=== PATIENT | female | born 1980 | race Caucasian/White ===

== ENCOUNTER 2017-08-14 11:35 | Emergency (ER) | payer SELFPAY ==
[2017-08-14 12:55] LABS: Urine Bacteria 20-50 /HPF (<20); Urine Culture Reflex Order NOT NEEDED
[2017-08-14 12:56] LABS: Urine Blood TRACE (NEG); Urine Glucose TRACE (NEG); Urine Protein TRACE (NEG); Urine Specific Gravity 1.015 (1.005-1.030); Urine pH 6.5 (5.0-7.0)
[2017-08-14] MEDS ORDERED: CEFTRIAXONE 1000 MG/VIAL ONE (13:00)
[2017-08-14] MEDS ORDERED: PHENAZOPYRIDINE 100MG TAB PO ONE (13:00)
[2017-08-14] MEDS ORDERED: LIDOCAINE 1% MPF 2 ML AMPULE ONE (13:00)
--- NOTE | 2017-08-14 13:01 | ER ---
Nurse's Notes [facility] Name: Radha Alvarado Age: 37 yrs Sex: Female : 1980 Arrival Date: 08/14/2017 Time: 11:37 Bed 10 Private MD: None, None Diagnosis: Urinary tract infection, site not specified Presentation: 08/14 11:46 Presenting complaint: Patient states: burning with urination x 3 days ago. Transition aa5 of care: patient was not received from another setting of care. Onset of symptoms was August 2017. Risk Assessment: Do you want to hurt yourself or someone else? Patient reports no desire to harm self or others. Initial Sepsis Screen: Does the patient meet any 2 criteria? No. Patient's initial sepsis screen is negative. Does the patient have a suspected source of infection? No. Patient's initial sepsis screen is negative. Care prior to arrival: None. 11:46 Method Of Arrival: Ambulatory aa5 11:46 Acuity: TITUS 4 aa5 Triage Assessment: 13:15 General: Appears in no apparent distress. iw 13:15 General: Behavior is calm, cooperative. 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 - Social history:: Smoking status: Patient/guardian denies using tobacco. - Ebola Screening: : No symptoms or risks identified at this time. Screenin:46 Abuse screen: Denies threats or abuse. Nutritional screening: No deficits noted. aa5 Tuberculosis screening: No symptoms or risk factors identified. Fall Risk None identified. Assessment: 11:46 General: Appears comfortable, Behavior is calm, cooperative. Pain: Denies pain. Neuro: aa5 Level of Consciousness is awake, alert, obeys commands, Oriented to person, place, time, situation. Cardiovascular: No deficits noted. Respiratory: Airway is patent Respiratory effort is even, unlabored, Respiratory pattern is regular, symmetrical. GI: No signs and/or symptoms were reported involving the gastrointestinal system. : Reports burning with urination, pain in suprapubic area with urination. EENT: No signs and/or symptoms were reported regarding the EENT system. Derm: Skin is pink, warm \T\ dry. Musculoskeletal: Range of motion: intact in all extremities. 13:18 Reassessment: Patient is alert, oriented x 3, equal unlabored respirations, skin aa5 warm/dry/pink. Vital Signs: 11:47 BP 97 / 65; Pulse 80; Resp 16 S; Temp 98.3(TE); Pulse Ox 97% on R/A; Weight 63.5 kg aa5 (R); Height 5 ft. 2 in. (157.48 cm) (R); Pain 0/10; 11:47 Body Mass Index 25.61 (63.50 kg, 157.48 cm) aa5 ED Course: 11:37 Patient arrived in ED. mr 11:37 None, None is Private Physician. mr 11:46 Triage completed. aa5 11:47 Arm band placed on. aa5 11:47 Patient has correct armband on for positive identification. aa5 11:55 Urine collected: clean catch specimen, clear, Urine micro and urine culture sent to lab.aa5 12:51 [facility]C [facility]. snw 12:51 Brian Alfonso MD is Attending Physician. snw 13:05 Shilpa Perla, AICHA is Primary Nurse. aa5 13:15 No provider procedures requiring assistance completed. Patient did not have IV access aa5 during this emergency room visit. 13:18 Primary Nurse role handed off by Shilpa Perla RN iw 13:18 Marily Colon RN is Primary Nurse. iw Administered Medications: 13:05 Drug: Rocephin (cefTRIAXone) 1 grams Route: IM; Site: right gluteus; aa5 13:18 Follow up: Response: No adverse reaction aa5 13:05 Drug: Pyridium 200 mg Route: PO; aa5 13:18 Follow up: Response: No adverse reaction aa5 13:07 Drug: [place] 5 mg-325 mg 1 tabs Route: PO; aa5 13:18 Follow up: Response: No adverse reaction aa5 Outcome: 13:00 Discharge ordered by . snw 13:18 Patient left the ED. iw 13:18 Discharged to home ambulatory, with family. aa5 13:18 Condition: stable 13:18 Discharge instructions given to patient, Instructed on discharge instructions, follow up and referral plans. medication usage, Demonstrated understanding of instructions, follow-up care, medications, Prescriptions given X 2. Addendum: 08/17/2017 09:22 Addendum: Culture Results: Positive urine culture. No further action required. Bacteria s s sensitive to prescribed antibiotic. Signatures: Asia White, MEAT PACKAGER-C MEAT PACKAGER-Csnw Fang Young mr Marily Colon RN RN iw Shilpa Perla RN RN aa5 Shira Napoles RN RN ss
--- NOTE | 2017-08-14 13:01 | EDPHYS ---
Physician Documentation [facility] Name: Radha Alvarado Age: 37 yrs Sex: Female : 1980 Arrival Date: 08/14/2017 Time: 11:37 Bed 10 Private MD: None, None ED Physician Brian Alfonso HPI: 08/14 13:09 This 37 yrs old Female presents to ER via Ambulatory with complaints of snw Urinary Problem. 13:09 The patient presents with urinary symptoms, dysuria, frequency, hematuria, urgency. snw Onset: The symptoms/episode began/occurred suddenly, 4 day(s) ago, and became worse and became persistent. Associated signs and symptoms: Pertinent positives: cramping, dysuria, hematuria, nausea. Severity of symptoms: At their worst the symptoms were moderate, severe, in the emergency department the symptoms are unchanged. The patient has experienced a previous episode. The patient has not recently seen a physician, called but was unable to secure a timely appointment for an office visit. 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 - Social history:: Smoking status: Patient/guardian denies using tobacco. - Ebola Screening: : No symptoms or risks identified at this time. ROS: 13:07 Constitutional: Negative for fever, chills, and weight loss, Eyes: Negative for injury, snw pain, redness, and discharge, ENT: Negative for injury, pain, and discharge, Neck: Negative for injury, pain, and swelling, Cardiovascular: Negative for chest pain, palpitations, and edema, Respiratory: Negative for shortness of breath, cough, wheezing, and pleuritic chest pain, Abdomen/GI: Negative for abdominal pain, nausea, vomiting, diarrhea, and constipation, Back: Negative for injury and pain, MS/Extremity: Negative for injury and deformity, Skin: Negative for injury, rash, and discoloration, Neuro: Negative for headache, weakness, numbness, tingling, and seizure. 13:07 : Positive for urinary symptoms, burning with urination. Exam: 13:07 Constitutional: This is a well developed, well nourished patient who is awake, alert, snw and in no acute distress. Head/Face: Normocephalic, atraumatic. Eyes: Pupils equal round and reactive to light, extra-ocular motions intact. Lids and lashes normal. Conjunctiva and sclera are non-icteric and not injected. Cornea within normal limits. Periorbital areas with no swelling, redness, or edema. ENT: Nares patent. No nasal discharge, no septal abnormalities noted. Tympanic membranes are normal and external auditory canals are clear. Oropharynx with no redness, swelling, or masses, exudates, or evidence of obstruction, uvula midline. Mucous membranes moist. Neck: Trachea midline, no thyromegaly or masses palpated, and no cervical lymphadenopathy. Supple, full range of motion without nuchal rigidity, or vertebral point tenderness. No Meningismus. Chest/axilla: Normal chest wall appearance and motion. Nontender with no deformity. No lesions are appreciated. Cardiovascular: Regular rate and rhythm with a normal S1 and S2. No gallops, murmurs, or rubs. Normal PMI, no JVD. No pulse deficits. Respiratory: Lungs have equal breath sounds bilaterally, clear to auscultation and percussion. No rales, rhonchi or wheezes noted. No increased work of breathing, no retractions or nasal flaring. Abdomen/GI: Soft, non-tender, with normal bowel sounds. No distension or tympany. No guarding or rebound. No evidence of tenderness throughout. restless and uncomfortable Back: No spinal tenderness. No costovertebral tenderness. Full range of motion. Skin: Warm, dry with normal turgor. Normal color with no rashes, no lesions, and no evidence of cellulitis. MS/ Extremity: Pulses equal, no cyanosis. Neurovascular intact. Full, normal range of motion. Neuro: Awake and alert, GCS 15, oriented to person, place, time, and situation. Cranial nerves II-XII grossly intact. Motor strength 5/5 in all extremities. Sensory grossly intact. Cerebellar exam normal. Normal gait. Psych: Awake, alert, with orientation to person, place and time. Behavior, mood, and affect are within normal limits. Vital Signs: 11:47 BP 97 / 65; Pulse 80; Resp 16 S; Temp 98.3(TE); Pulse Ox 97% on R/A; Weight 63.5 kg aa5 (R); Height 5 ft. 2 in. (157.48 cm) (R); Pain 0/10; 11:47 Body Mass Index 25.61 (63.50 kg, 157.48 cm) aa5 MDM: 12:53 Patient medically screened. snw 13:08 Data reviewed: vital signs, nurses notes. Data interpreted: Pulse oximetry: on room air snw is 97 %. Interpretation: normal. Counseling: I had a detailed discussion with the patient and/or guardian regarding: the historical points, exam findings, and any diagnostic results supporting the discharge/admit diagnosis, lab results, the need for outpatient follow up, to return to the emergency department if symptoms worsen or persist or if there are any questions or concerns that arise at home. Special discussion: Based on the history and exam findings, there is no indication for further emergent testing or inpatient evaluation. I discussed with the patient/guardian the need to see the primary care provider for further evaluation of the symptoms. 08/14 11:41 Order name: Urine Culture snw 08/14 11:41 Order name: Urine Microscopic Only; Complete Time: 12:57 snw 08/14 12:47 Order name: Urine Dipstick--Ancillary (enter results); Complete Time: 12:57 bd 08/14 12:47 Order name: Urine --Ancillary (enter results); Complete Time: 12:57 bd 08/14 11:41 Order name: Urine Test (obtain specimen); Complete Time: 12:00 snw 08/14 11:41 Order name: Urine Dipstick-Ancillary (obtain specimen); Complete Time: 12:00 snw Administered Medications: 13:05 Drug: Rocephin (cefTRIAXone) 1 grams Route: IM; Site: right gluteus; aa5 13:18 Follow up: Response: No adverse reaction aa5 13:05 Drug: Pyridium 200 mg Route: PO; aa5 13:18 Follow up: Response: No adverse reaction aa5 13:07 Drug: [place] 5 mg-325 mg 1 tabs Route: PO; aa5 13:18 Follow up: Response: No adverse reaction aa5 Disposition: 15:14 Co-signature as Attending Physician, Brian Alfonso MD I agree with the assessment and ha plan of care. Disposition: 08/14/17 13:00 Discharged to Home. Impression: Urinary tract infection, site not specified. - Condition is Stable. - Discharge Instructions: Urinary Tract Infection, Rehydration, Adult. - Prescriptions for Diclofenac Sodium 75 mg Oral Tablet Sustained Release - take 1 tablet by ORAL route 2 times per day; 30 tablet. cefpodoxime 200 mg Oral Tablet - take 1 tablet by ORAL route every 12 hours with food; 20 tablet. - Work release form, Medication Reconciliation Form, Thank You Letter, Antibiotic Education, Prescription Opioid Use form. - Follow up: Private Physician; When: 2 - 3 days; Reason: Recheck today's complaints, Continuance of care, Re-evaluation by your physician. Follow up: Emergency Department; When: As needed; Reason: Worsening of condition. Signatures: Dispatcher [employer] EDMD Brian Alfonso MD MD cha Therrien, Shelly, CANCER REGISTRAR-C CANCER REGISTRAR-Csnw Marily Colon RN RN Shilpa Perla RN RN aa5 Corrections: (The following items were deleted from the chart) 13:18 13:00 08/14/2017 13:00 Discharged to Home. Impression: Urinary tract infection, site iw not specified. Condition is Stable. Forms are Medication Reconciliation Form, Thank You Letter, Antibiotic Education, Prescription Opioid Use. Follow up: Private Physician; When: 2 - 3 days; Reason: Recheck today's complaints, Continuance of care, Re-evaluation by your physician. Follow up: Emergency Department; When: As needed; Reason: Worsening of condition. snw
[2017-08-14] MEDS ORDERED: HYDROCODONE/APAP 5/325 MG TAB ONE (13:08)
== END 2017-08-14 13:18 | disposition home or self-care (01) ==
LOC: ER 11:35
DX: N39.0 Urinary tract infection, site not specified (principal); F41.9 Anxiety disorder, unspecified; Z88.2 Allergy status to sulfonamides
CPT/HCPCS: 81003; 81015; 81025; 87077; 87086; 87088; 87186; 96372; 99283; J2001

== ENCOUNTER 2018-04-15 21:56 | Emergency (ER) | payer SELFPAY ==
--- NOTE | 2018-04-15 23:47 | ER ---
Nurse's Notes [facility] Name: Radha Alvarado Age: 37 yrs Sex: Female : 1980 Arrival Date: 04/15/2018 Time: 21:57 Bed 10 Private MD: Diagnosis: Dermatitis, unspecified Presentation: 04/15 22:11 Presenting complaint: Patient states: rash to bilateral hand, arms, legs and feet X1 ak1 week. pt stated she has had this prior with increased stress. pt seen by Dr. Ward and taking Doxycycline. pt last rash "episode" she was seen by [facility]. Transition of care: patient was not received from another setting of care. Onset of symptoms is unknown. Risk Assessment: Do you want to hurt yourself or someone else? Patient reports no desire to harm self or others. Initial Sepsis Screen: Does the patient meet any 2 criteria? No. Patient's initial sepsis screen is negative. Does the patient have a suspected source of infection? No. Patient's initial sepsis screen is negative. Care prior to arrival: None. 22:11 Method Of Arrival: Ambulatory ak1 22:11 Acuity: TITUS 5 ak1 Triage Assessment: 22:14 General: Appears in no apparent distress. 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 - Social history:: Smoking status: Patient/guardian denies using tobacco, Patient/guardian denies using alcohol. - Ebola Screening: : No symptoms or risks identified at this time. Screenin:36 Abuse screen: Denies threats or abuse. Nutritional screening: No deficits noted. bb Tuberculosis screening: No symptoms or risk factors identified. Fall Risk None identified. Assessment: 23:36 General: Appears in no apparent distress. slender, Behavior is calm, cooperative. Pain: bb Complains of pain in rash. Neuro: Level of Consciousness is awake, alert, obeys commands, Oriented to person, place, time, situation. Cardiovascular: No deficits noted. Respiratory: Respiratory effort is even, unlabored, Respiratory pattern is regular. GI: No signs and/or symptoms were reported involving the gastrointestinal system. Derm: Rash noted that is on face, hands, arms and legs. Musculoskeletal: Circulation, motion, and sensation intact. 04/16 00:16 Reassessment: Patient and/or family updated on plan of care and expected duration. Pain ea level reassessed. Patient is alert, oriented x 3, equal unlabored respirations, skin warm/dry/pink. Attempted to give pt discharge instructions. 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 Pt demanding labs and to speak to physician. Provider and charge nurse notified. Provider at bedside speaking to patient. 00:40 Reassessment: Patient and/or family updated on plan of care and expected duration. Pain ea level reassessed. Patient is alert, oriented x 3, equal unlabored respirations, skin warm/dry/pink. Discharge instructions given to patient, verbalized the understanding of instruction. Pt refused to sign discharge instructions. Vital Signs: 04/15 22:14 BP 121 / 81; Pulse 75; Resp 16; Temp 98.1; Pulse Ox 100% on R/A; Weight 56.25 kg (R); ak1 Height 5 ft. 2 in. (157.48 cm) (R); Pain 10/10; 23:53 BP 134 / 90; Pulse 71; Resp 18 S; Temp 98.2(O); Pulse Ox 99% on R/A; bb 22:14 Body Mass Index 22.68 (56.25 kg, 157.48 cm) ak1 ED Course: 21:57 Patient arrived in ED. am2 22:12 Triage completed. ak1 22:14 Arm band placed on Patient placed in waiting room, Patient notified of wait time. ak1 23:12 Jayy Peter MD is Attending Physician. gs 23:36 Kayla Johnson RN is Primary Nurse. bb 23:36 Patient has correct armband on for positive identification. Call light in reach. bb 23:37 No provider procedures requiring assistance completed. Patient did not have IV access bb during this emergency room visit. 23:46 Lee Bryan MD is Referral Physician. gs Administered Medications: No medications were administered Outcome: 23:46 Discharge ordered by . lauren 04/16 00:40 Discharged to home ambulatory. ea Condition: improved Discharge instructions given to patient, Instructed on discharge instructions, follow up and referral plans. medication usage, Demonstrated understanding of instructions, follow-up care, medications, Prescriptions given X 2. 00:47 Patient left the ED. ea Signatures: Kayla Johnson RN Vicki Murrell RN RN ak1 Moreno, Amanda am2 Antunez, Elena, RN RN ea Starr, Gregory, MD MD gs
--- NOTE | 2018-04-15 23:47 | EDPHYS ---
Physician Documentation [facility] Name: Radha Alvarado Age: 37 yrs Sex: Female : 1980 Arrival Date: 04/15/2018 Time: 21:57 Bed 10 Private MD: ED Physician Jayy Peter HPI: 04/15 23:43 This 37 yrs old Female presents to ER via Ambulatory with complaints of Skin gs Rash Face/Hands/Feet. 23:43 The rash can be described as flat, scabs. Onset: The symptoms/episode began/occurred 1 gs year(s) ago, and became persistent. Associated signs and symptoms: Pertinent positives: itching, Pertinent negatives: fever. Severity of symptoms: At their worst the symptoms were moderate in the emergency department the symptoms are unchanged. Treatment given at home: Benadryl. The patient has experienced similar episodes in the past, chronically. 04/16 00:31 The patient has been recently seen by a physician: the patient's primary care provider, gs with similar presenting complaints, was given a prescription for antibiotics. 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 - Social history:: Smoking status: Patient/guardian denies using tobacco, Patient/guardian denies using alcohol. - Ebola Screening: : No symptoms or risks identified at this time. ROS: 23:43 All other systems are negative. gs Exam: 23:43 Head/Face: Normocephalic, atraumatic. Eyes: Pupils equal round and reactive to light, gs extra-ocular motions intact. Lids and lashes normal. Conjunctiva and sclera are non-icteric and not injected. Cornea within normal limits. Periorbital areas with no swelling, redness, or edema. ENT: Nares patent. No nasal discharge, no septal abnormalities noted. Tympanic membranes are normal and external auditory canals are clear. Oropharynx with no redness, swelling, or masses, exudates, or evidence of obstruction, uvula midline. Mucous membranes moist. Neck: Trachea midline, no thyromegaly or masses palpated, and no cervical lymphadenopathy. Supple, full range of motion without nuchal rigidity, or vertebral point tenderness. No Meningismus. Chest/axilla: Normal chest wall appearance and motion. Nontender with no deformity. No lesions are appreciated. Cardiovascular: Regular rate and rhythm with a normal S1 and S2. No gallops, murmurs, or rubs. Normal PMI, no JVD. No pulse deficits. Respiratory: Lungs have equal breath sounds bilaterally, clear to auscultation and percussion. No rales, rhonchi or wheezes noted. No increased work of breathing, no retractions or nasal flaring. Back: No spinal tenderness. No costovertebral tenderness. Full range of motion. MS/ Extremity: Pulses equal, no cyanosis. Neurovascular intact. Full, normal range of motion. Neuro: Awake and alert, GCS 15, oriented to person, place, time, and situation. Cranial nerves II-XII grossly intact. Motor strength 5/5 in all extremities. Sensory grossly intact. Cerebellar exam normal. Normal gait. 23:43 Constitutional: The patient appears alert, awake, uncomfortable. 23:43 Skin: rash can be described as excoriated, macular, scabs on face hands and legs. Vital Signs: 22:14 BP 121 / 81; Pulse 75; Resp 16; Temp 98.1; Pulse Ox 100% on R/A; Weight 56.25 kg (R); ak1 Height 5 ft. 2 in. (157.48 cm) (R); Pain 10/10; 23:53 BP 134 / 90; Pulse 71; Resp 18 S; Temp 98.2(O); Pulse Ox 99% on R/A; bb 22:14 Body Mass Index 22.68 (56.25 kg, 157.48 cm) ak1 MDM: 23:43 Patient medically screened. gs 23:43 Data reviewed: vital signs, nurses notes. gs Administered Medications: No medications were administered Disposition: 04/15/18 23:46 Discharged to Home. Impression: Dermatitis, unspecified. - Condition is Stable. - Discharge Instructions: Rash. - Prescriptions for Vistaril 25 mg Oral capsule - take 1 capsule by ORAL route 4 times per day As needed; 30 capsule. benzoyl peroxide 10 % Topical cleanser - wash 1 application by TOPICAL route 2 times per day; 1 bottle. - Work release form, Medication Reconciliation Form, Thank You Letter, Antibiotic Education, Prescription Opioid Use form. - Follow up: Lee Bryan MD; When: 2 - 3 days; Reason: Re-evaluation by your physician. Signatures: Vicki Macario RN RN ak1 Idalia Holland RN RN ea Starr, Gregory, MD MD Corrections: (The following items were deleted from the chart) 04/16 00:47 04/15 23:46 04/15/2018 23:46 Discharged to Home. Impression: Dermatitis, unspecified. ea Condition is Stable. Forms are Medication Reconciliation Form, Thank You Letter, Antibiotic Education, Prescription Opioid Use. Follow up: Lee Bryan; When: 2 - 3 days; Reason: Re-evaluation by your physician. gs
== END 2018-04-16 00:47 | disposition home or self-care (01) ==
LOC: ER 21:56
DX: L30.9 Dermatitis, unspecified (principal); F41.9 Anxiety disorder, unspecified; F32.9 Major depressive disorder, single episode, unspecified; Z79.899 Other long term (current) drug therapy
CPT/HCPCS: 99282

== ENCOUNTER 2018-06-18 09:11 | Emergency (ER) | payer SELFPAY ==
[2018-06-18 10:08] LABS: Urine Blood 1+ (NEG); Urine Glucose NEGATIVE (NEG); Urine Protein NEGATIVE (NEG); Urine Specific Gravity >1.030 (1.005-1.030); Urine pH 5.5 (5.0-7.0)
[2018-06-18 10:17] LABS: Urine Bacteria >50 /HPF (<20); Urine RBC <5 /HPF (NONE SEEN)
[2018-06-18 10:18] LABS: Urine Culture Reflex Order REFLEXED
[2018-06-18] MEDS ORDERED: LIDOCAINE 1% MPF 2 ML AMPULE ONE (10:31)
[2018-06-18] MEDS ORDERED: AZITHROMYCIN 250 MG TAB ONE (10:31)
[2018-06-18] MEDS ORDERED: CEFTRIAXONE 250 MG/VIAL ONE (10:31)
--- NOTE | 2018-06-18 10:44 | EDPHYS ---
Physician Documentation [facility] Name: Radha Alvarado Age: 37 yrs Sex: Female : 1980 Arrival Date: 06/18/2018 Time: 09:13 Bed 17 Private MD: Cristobal Ward T ED Physician Corby Real HPI: 06/18 10:18 This 37 yrs old Female presents to ER via Ambulatory with complaints of jr8 Vaginal pain . 10:18 The patient presents with lesion on vagina. Onset: The symptoms/episode began/occurred jr8 gradually, 3 day(s) ago. Modifying factors: The symptoms are alleviated by nothing, the symptoms are aggravated by movement. Associated signs and symptoms: The patient has no apparent associated signs or symptoms. Severity of symptoms: At their worst the symptoms were mild, in the emergency department the symptoms are unchanged. The patient has not experienced similar symptoms in the past. The patient has not recently seen a physician. Patient stated that she has been on doxycycline for rash. Stated that she started to have burning near vaginal opening. Noticed small painful lesion to left labial area . 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 - Social history:: Smoking status: Patient/guardian denies using tobacco, Patient/guardian denies using alcohol. - Ebola Screening: : Patient negative for fever greater than or equal to 101.5 degrees Fahrenheit, and additional compatible Ebola Virus Disease symptoms Patient denies exposure to infectious person Patient denies travel to an Ebola-affected area in the 21 days before illness onset. ROS: 10:18 Eyes: Negative for injury, pain, redness, and discharge, ENT: Negative for injury, jr8 pain, and discharge, Neck: Negative for injury, pain, and swelling, Cardiovascular: Negative for chest pain, palpitations, and edema, Respiratory: Negative for shortness of breath, cough, wheezing, and pleuritic chest pain, Abdomen/GI: Negative for abdominal pain, nausea, vomiting, diarrhea, and constipation, Back: Negative for injury and pain, MS/Extremity: Negative for injury and deformity, Skin: Negative for injury, rash, and discoloration, Neuro: Negative for headache, weakness, numbness, tingling, and seizure. 10:18 : Positive for vaginal lesion. Exam: 10:18 Eyes: Pupils equal round and reactive to light, extra-ocular motions intact. Lids and jr8 lashes normal. Conjunctiva and sclera are non-icteric and not injected. Cornea within normal limits. Periorbital areas with no swelling, redness, or edema. ENT: Nares patent. No nasal discharge, no septal abnormalities noted. Tympanic membranes are normal and external auditory canals are clear. Oropharynx with no redness, swelling, or masses, exudates, or evidence of obstruction, uvula midline. Mucous membranes moist. Neck: Trachea midline, no thyromegaly or masses palpated, and no cervical lymphadenopathy. Supple, full range of motion without nuchal rigidity, or vertebral point tenderness. No Meningismus. Cardiovascular: Regular rate and rhythm with a normal S1 and S2. No gallops, murmurs, or rubs. Normal PMI, no JVD. No pulse deficits. Respiratory: Lungs have equal breath sounds bilaterally, clear to auscultation and percussion. No rales, rhonchi or wheezes noted. No increased work of breathing, no retractions or nasal flaring. Abdomen/GI: Soft, non-tender, with normal bowel sounds. No distension or tympany. No guarding or rebound. No evidence of tenderness throughout. Back: No spinal tenderness. No costovertebral tenderness. Full range of motion. MS/ Extremity: Pulses equal, no cyanosis. Neurovascular intact. Full, normal range of motion. Neuro: Awake and alert, GCS 15, oriented to person, place, time, and situation. Cranial nerves II-XII grossly intact. Motor strength 5/5 in all extremities. Sensory grossly intact. Cerebellar exam normal. Normal gait. 10:18 Skin: Patient has scabbed wounds to face, arms, legs, pubic region consistent with staph. 10:40 : Pelvic Exam: External exam: reveals ulcerations on external genitalia, 1.5 cm jr8 ulceration noted to inner left labial region that is painful to touch . Vital Signs: 09:25 BP 127 / 77; Pulse 64; Resp 18; Temp 97.8(O); Pulse Ox 100% on R/A; Weight 61.69 kg; hj Height 5 ft. 2 in. (157.48 cm); 11:12 BP 125 / 75; Pulse 65; Resp 18; Pulse Ox 100% on R/A; hj 09:25 Body Mass Index 24.87 (61.69 kg, 157.48 cm) hj MDM: 09:37 Patient medically screened. jr8 10:40 Data reviewed: vital signs, nurses notes, lab test result(s). Data interpreted: Pulse jr8 oximetry: on room air is 100 %. Interpretation: normal. Counseling: I had a detailed discussion with the patient and/or guardian regarding: the historical points, exam findings, and any diagnostic results supporting the discharge/admit diagnosis, lab results, the need for outpatient follow up, a family practitioner, an OB/Gyne specialist, to return to the emergency department if symptoms worsen or persist or if there are any questions or concerns that arise at home. ED course: Patient counseled on possible diagnosis of Chancroid vs. HSV infection. Treated prophylactically for Chancroid and sent labs off for HSV. Will treat staph with bactroban . 06/18 09:38 Order name: Urine Microscopic Only; Complete Time: 10:44 jr8 06/18 09:46 Order name: Urine Dipstick--Ancillary (enter results); Complete Time: 10:11 bd 06/18 09:46 Order name: Urine --Ancillary (enter results); Complete Time: 10:11 bd 06/18 10:19 Order name: Urine Culture EDNE 06/18 09:38 Order name: Urine Test (obtain specimen); Complete Time: 09:39 jr8 06/18 09:38 Order name: Urine Dipstick-Ancillary (obtain specimen); Complete Time: 09:39 jr8 Administered Medications: 10:32 Drug: AZITHromycin 1 grams Route: PO; hj 10:48 Follow up: Response: No adverse reaction hj 10:32 Drug: Rocephin (cefTRIAXone) 250 mg Route: IM; Site: right gluteus; hj 10:48 Follow up: Response: No adverse reaction hj Disposition: 06/19 07:05 Co-signature as Attending Physician, Corby Real MD. rn Disposition: 06/18/18 10:43 Discharged to Home. Impression: Vaginal Lesion , Rash and other nonspecific skin eruption, Urinary tract infection, site not specified. - Condition is Stable. - Discharge Instructions: Rash. - Prescriptions for Bactroban 2 % Topical Ointment - Apply to affected area 1 application by TOPICAL route every 12 hours; 30 gram. Cipro 500 mg Oral Tablet - take 1 tablet by ORAL route every 12 hours for 3 days; 6 tablet. - Medication Reconciliation Form, Thank You Letter, Antibiotic Education, Prescription Opioid Use, Work release form form. - Follow up: Private Physician; When: 2 - 3 days; Reason: Recheck today's complaints, Continuance of care, Re-evaluation by your physician. - Problem is new. - Symptoms have improved. Signatures: Dispatcher [employer] EDCorby Peng MD MD rn Felipe Alejo PA PA jr8 Kain Christy RN RN hj Corrections: (The following items were deleted from the chart) 06/18 10:44 10:43 06/18/2018 10:43 Discharged to Home. Impression: Vaginal Lesion ; Rash and other jr8 nonspecific skin eruption. Condition is Stable. Forms are Medication Reconciliation Form, Thank You Letter, Antibiotic Education, Prescription Opioid Use. Follow up: Private Physician; When: 2 - 3 days; Reason: Recheck today's complaints, Continuance of care, Re-evaluation by your physician. Problem is new. Symptoms have improved. jr8 11:12 10:44 06/18/2018 10:43 Discharged to Home. Impression: Vaginal Lesion ; Rash and other hj nonspecific skin eruption; Urinary tract infection, site not specified. Condition is Stable. Discharge Instructions: Genital Herpes, Rash. Prescriptions for Bactroban 2 % Topical Ointment - Apply to affected area 1 application by TOPICAL route every 12 hours; 30 gram. and Forms are Medication Reconciliation Form, Thank You Letter, Antibiotic Education, Prescription Opioid Use. Follow up: Private Physician; When: 2 - 3 days; Reason: Recheck today's complaints, Continuance of care, Re-evaluation by your physician. Problem is new. Symptoms have improved. jr8
--- NOTE | 2018-06-18 10:44 | ER ---
Nurse's Notes [facility] Name: Radha Alvarado Age: 37 yrs Sex: Female : 1980 Arrival Date: 06/18/2018 Time: 09:13 Bed 17 Private MD: Cristobal Ward T Diagnosis: Vaginal Lesion ;Rash and other nonspecific skin eruption;Urinary tract infection, site not specified Presentation: 06/18 09:22 Presenting complaint: Patient states: at first i noticed like a chalky discharge on my hj vagina and now when i pee it marshall like there is a raw spot in there, i haven't had sex for 6 months now, denies fever and chills; been taking doxycycline for skin issues;. Transition of care: patient was not received from another setting of care. Onset of symptoms was June 18, 2018. Risk Assessment: Do you want to hurt yourself or someone else? Patient reports no desire to harm self or others. Initial Sepsis Screen: Does the patient meet any 2 criteria? No. Patient's initial sepsis screen is negative. Does the patient have a suspected source of infection? No. Patient's initial sepsis screen is negative. Care prior to arrival: None. 09:22 Method Of Arrival: Ambulatory 09:22 Acuity: TITUS 3 Triage Assessment: 09:24 General: Appears in no apparent distress. uncomfortable, Behavior is calm, cooperative, hj appropriate for age. Pain: Complains of pain in vagina. EENT: No signs and/or symptoms were reported regarding the EENT system. Neuro: Level of Consciousness is awake, alert, obeys commands, Oriented to person, place, time, situation, Appropriate for age. Cardiovascular: Denies chest pain, Capillary refill < 3 seconds Patient's skin is warm and dry. Respiratory: Airway is patent Respiratory effort is even, unlabored, Respiratory pattern is regular, symmetrical. GI: No signs and/or symptoms were reported involving the gastrointestinal system. : Reports burning with urination, discharge. Derm: Reports skin problemd. Musculoskeletal: No signs and/or symptoms reported regarding the musculoskeletal system. 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 - Social history:: Smoking status: Patient/guardian denies using tobacco, Patient/guardian denies using alcohol. - Ebola Screening: : Patient negative for fever greater than or equal to 101.5 degrees Fahrenheit, and additional compatible Ebola Virus Disease symptoms Patient denies exposure to infectious person Patient denies travel to an Ebola-affected area in the 21 days before illness onset. Screenin:26 Abuse screen: Denies threats or abuse. Denies injuries from another. Nutritional hj screening: No deficits noted. Tuberculosis screening: No symptoms or risk factors identified. Fall Risk None identified. Assessment: 09:26 Reassessment: see triage assessment;. hj 09:58 Reassessment: provider in room for PE with nurse Krysta;. Vital Signs: 09:25 BP 127 / 77; Pulse 64; Resp 18; Temp 97.8(O); Pulse Ox 100% on R/A; Weight 61.69 kg; hj Height 5 ft. 2 in. (157.48 cm); 11:12 BP 125 / 75; Pulse 65; Resp 18; Pulse Ox 100% on R/A; hj 09:25 Body Mass Index 24.87 (61.69 kg, 157.48 cm) hj ED Course: 09:13 Patient arrived in ED. dl4 09:14 Cristobal Ward MD is Private Physician. dl4 09:17 [facility] jr8 09:17 Corby Real MD is Attending Physician. jr8 09:21 Kain Christy, AICHA is Primary Nurse. hj 09:23 Triage completed. hj 09:26 Arm band placed on right wrist. hj 09:27 Patient has correct armband on for positive identification. Bed in low position. Call hj light in reach. Side rails up X 1. 10:25 Assist provider with pelvic exam: Set up pelvic tray. Performed by Felipe LAFLEUR jl7 Specimens sent to lab. Patient tolerated poorly. 11:12 Patient did not have IV access during this emergency room visit. Administered Medications: 10:32 Drug: AZITHromycin 1 grams Route: PO; hj 10:48 Follow up: Response: No adverse reaction hj 10:32 Drug: Rocephin (cefTRIAXone) 250 mg Route: IM; Site: right gluteus; hj 10:48 Follow up: Response: No adverse reaction Outcome: 10:43 Discharge ordered by MD. navarro 11:11 Discharged to home ambulatory. hj 11:11 Condition: stable 11:11 Discharge instructions given to patient, Instructed on discharge instructions, follow up and referral plans. medication usage, Demonstrated understanding of instructions, follow-up care, medications, Prescriptions given X 2. 11:12 Patient left the ED. Signatures: Felipe Alejo PA PA jr8 Kain Christy RN RN Krysta Mart RN RN jl7 Cristobal Cesar dl4
== END 2018-06-18 11:12 | disposition home or self-care (01) ==
LOC: ER 09:11
DX: R21 Rash and other nonspecific skin eruption (principal); N39.0 Urinary tract infection, site not specified; F41.9 Anxiety disorder, unspecified; F32.9 Major depressive disorder, single episode, unspecified; Z88.2 Allergy status to sulfonamides
CPT/HCPCS: 81003; 81015; 81025; 87086; 87088; 87252; 96372; 99284; J0696; J2001

== ENCOUNTER 2019-06-30 06:10 | Emergency (ER) | payer SELFPAY ==
[2019-06-30] MEDS ORDERED: HYDROCODONE/APAP 5/325 MG TAB ONE (06:55)
[2019-06-30] MEDS ORDERED: DIAZEPAM 2 MG TABLET ONE (06:56)
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
[2019-06-30] MEDS ORDERED: DERMABOND SKIN ADHESIVE TOP ONE (07:56)
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
[2019-06-30 08:54] VITALS: TEMP 98.2
[2019-06-30 08:56] VITALS: BP 132/78; O2SAT 98
--- NOTE | 2019-06-30 09:18 | RAD REPORT ---
EXAM DESCRIPTION: RAD - Lumbar Spine 3 Views - 06/30/2019 6:58 am CLINICAL HISTORY: PAIN COMPARISON: No comparisons FINDINGS: A three-view lumbar spine examination was performed. Lumbar bodies are normal in height and alignment. No fracture or acute bony process seen. No disc spa ce narrowing. Lowest lumbar level is partially sacralized on the left. Patient has 6 lumbar type vert ebrae configuration is a normal variant. Minimal L4-5 facet joint degenerative changes are present. N o pars defects identified. IMPRESSION: Mild lower lumbar facet degenerative change. No fracture or acute finding. Concerns for disc herniation, central canal abnormality or occult bone process can be addressed with MR imaging.
== END 2019-06-30 08:48 | disposition home or self-care (01) ==
LOC: ER 06:10
DX: S09.90XA Unspecified injury of head, initial encounter (principal); M54.16 Radiculopathy, lumbar region; M54.5 Low back pain; F34.1 Dysthymic disorder; Z88.2 Allergy status to sulfonamides
CPT/HCPCS: 70450; 72100; 72125; 99284

== ENCOUNTER → 2019-12-04 | Day surgery (SDC) | payer SELFPAY ==
--- NOTE | 2019-12-04 12:12 | RAD REPORT ---
EXAM DESCRIPTION: US - Thyroid Para Parotid Gland - 12/04/2019 11:45 am CLINICAL HISTORY: E04.1 COMPARISON: 2008 and 2019 cat scan FINDINGS: Patient was referred for a a fine-needle aspiration of a left thyroid nodule Ultrasound demonstrates a 1 centimeter hypoechoic nodule with a peripheral calcification within the m idpole of the left lobe of the thyroid gland. The nodule is unchanged in size from the 2009 cat scan. It has developed benign-appearing peripheral calcification. Since the nodule is unchanged in size ov er approximately 11 years it is benign. Fine-needle aspiration was not performed. The exam was discussed with Jeff from 's office IMPRESSION: 1 centimeter nodule within the left lobe of the thyroid gland unchanged in size from 200 9 is benign
== END ==
LOC: FNA 10:47
PROVIDERS: ATTEND Otolaryngology
DX: E04.1 Nontoxic single thyroid nodule (principal); Z53.8 Procedure and treatment not carried out for other reasons
CPT/HCPCS: 76536

== ENCOUNTER 2020-05-02 15:35 | Emergency (ER) | payer SELFPAY ==
--- OUTSIDE RECORDS SUMMARY | 2020-05-02 15:37 | XMS REPORT | Continuity of Care Document ---
:1980 Author Organization [facility] t Address [address] [place] [address] Dr. Coronado [address] [place] [id number] Care Team Providers Name Role Phone Unavailable Unavailable Unavailable Problems This patient has no known problems. Allergies, Adverse Reactions, Alerts This patient has no known allergies or adverse reactions. Medications This patient has no known medications. Procedures This patient has no known procedures. Results This patient has no known results.
[2020-05-02] MEDS ORDERED: NA CHLORIDE 0.9% 1,000 ML ONE (16:30)
[2020-05-02] MEDS ORDERED: KETOROLAC 30 MG/ML INJ ONE (16:30)
[2020-05-02 16:51] LABS: Absolute Lymphocytes (CBC) 2.2 K/uL (0.7-4.9); Basophils % 0.6 % (0-1.3); Hematocrit 35.8 % (36.0-45.0); MPV 8.4 fL (7.6-11.3); RBC Red Blood Cell Count 4.07 M/uL (3.86-4.86)
[2020-05-02 16:51] LABS: Urine Bacteria >50 /HPF (<20); Urine RBC LOADED /HPF (NONE SEEN); Urine Yeast PRESENT (NONE SEEN)
[2020-05-02 16:56] LABS: BUN Blood Urea Nitrogen 12 mg/dL (7-18); Bicarbonate 25 mmol/L (21-32); Glucose Level 89 mg/dL (74-106); Potassium 3.9 mmol/L (3.5-5.1); Sodium Level 141 mmol/L (136-145)
[2020-05-02] MEDS ORDERED: MORPHINE 4 MG/ML SYR ONE ×2 (17:06→19:29)
[2020-05-02] MEDS ORDERED: ONDANSETRON 4 MG/2 ML VIAL ONE ×2 (17:06→19:29)
--- NOTE | 2020-05-02 18:10 | RAD REPORT ---
EXAM DESCRIPTION: CT - Stone Protocol - 05/02/2020 5:41 pm CLINICAL HISTORY: Abdominal pain./flank pain COMPARISON: 2017 TECHNIQUE: Computed axial tomography of the abdomen pelvis was obtained without oral or IV contrast. Lack of IV and oral contrast limits evaluation of solid organs, bowel, and vessels. Coronal reformat aditya images were obtained and reviewed. All CT scans are performed using dose optimization technique as appropriate and may include automated exposure control or mA/KV adjustment according to patient size. FINDINGS: A 4.5 millimeter calculus left UPJ with mild left hydronephrosis. Hounsfield unit 1304. A right renal calculus is not seen. No bladder calculus. The liver, spleen, pancreas and adrenals grossly normal There is no evidence of diverticulitis. The appendix appears normal IMPRESSION: 4.5 millimeter calculus left UPJ with mild left hydronephrosis
--- NOTE | 2020-05-02 18:21 | ER ---
Nurse's Notes [facility] Name: Radha Alvarado Age: 39 yrs Sex: Female : 1980 Arrival Date: 05/02/2020 Time: 15:36 Bed 14 Private MD: Diagnosis: Calculus of kidney and ureter;Urinary tract infection, site not specified;Candidiasis of vulva and vagina Presentation: 05/02 15:44 Chief complaint: Patient states: "I think I am having kidney stones.". Coronavirus jd3 screen: At this time, the client does not indicate any symptoms associated with coronavirus-19. Ebola Screen: Patient negative for fever greater than or equal to 101.5 degrees Fahrenheit, and additional compatible Ebola Virus Disease symptoms. Initial Sepsis Screen: Does the patient meet any 2 criteria? No. Patient's initial sepsis screen is negative. Does the patient have a suspected source of infection? No. Patient's initial sepsis screen is negative. Risk Assessment: Do you want to hurt yourself or someone else? Patient reports no desire to harm self or others. Onset of symptoms was May 02, 2020. 15:44 Method Of Arrival: Ambulatory jd3 15:44 Acuity: TITUS 3 jd3 Triage Assessment: 15:45 General: Appears distressed, uncomfortable, Behavior is cooperative, appropriate for bp age, anxious. Pain: Complains of pain in left flank. EENT: No deficits noted. Neuro: No deficits noted. Cardiovascular: No deficits noted. Respiratory: No deficits noted. GI: Reports nausea. : Reports pain in left flank(s). Derm: Skin is clammy, Skin is pale. Musculoskeletal: No deficits noted. 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 - Social history:: Smoking status: Patient/guardian denies using tobacco, the patient reports quitting approximately 10 years ago. Screenin:00 Abuse screen: Denies threats or abuse. Denies injuries from another. Nutritional bp screening: No deficits noted. Tuberculosis screening: No symptoms or risk factors identified. Fall Risk None identified. Assessment: 15:45 General: SEE TRIAGE NOTE. bp 17:28 Reassessment: No changes from previously documented assessment. Patient states symptoms bp have improved. 17:47 Reassessment: No changes from previously documented assessment. Patient and/or family bp updated on plan of care and expected duration. Pain level reassessed. PT RETURNED FROM CT. 18:40 Reassessment: D/C ON HOLD FOR IV MEDICATION. bp 19:33 Reassessment: No changes from previously documented assessment. Patient and/or family ll2 updated on plan of care and expected duration. Pain level reassessed. pt pending d/c when fluids are finished. Vital Signs: 15:46 BP 120 / 87; Pulse 68; Resp 17 S; Temp 97.6(TE); Pulse Ox 99% on R/A; Weight 58.06 kg jd3 (R); Height 5 ft. 2 in. (157.48 cm) (R); Pain 10/10; 16:29 BP 140 / 78; Pulse 76; Resp 16; Pulse Ox 100% on R/A; mh5 18:16 BP 123 / 70; Pulse 56; Resp 17; Pulse Ox 100% ; bp 15:46 Body Mass Index 23.41 (58.06 kg, 157.48 cm) jd3 ED Course: 15:36 Patient arrived in ED. as 15:38 [facility]ing[facility]C [facility] kb 15:38 Corby Real MD is Attending Physician. kb 15:45 Triage completed. jd3 15:47 Arm band placed on. jd3 16:00 Patient has correct armband on for positive identification. Bed in low position. Call bp light in reach. Side rails up X2. 16:01 Radiology exam delayed due to test not completed at this time. mw3 16:08 Juan Trevino, AICHA is Primary Nurse. bp 16:20 Inserted saline lock: 20 gauge in right antecubital area, using aseptic technique. bp Blood collected. 17:41 CT Stone Protocol In Process Unspecified. EDMS 18:20 Victor Manuel Zapata MD is Referral Physician. kb 19:44 Primary Nurse role handed off by Juan Trevino, RN tt3 19:54 Fabiola Adhikari, AICHA is Primary Nurse. ll2 Administered Medications: 16:20 Drug: NS 0.9% 1000 ml Route: IV; Rate: 1000 ml; Site: right antecubital; bp 16:20 Drug: TORadol 30 mg Route: IVP; Site: right antecubital; bp 16:53 Follow up: Response: No adverse reaction bp 16:53 Drug: morphine 4 mg Route: IVP; Site: right antecubital; bp 19:36 Follow up: Response: No adverse reaction ll2 18:30 Drug: Magnesium Sulfate 1 grams Route: IVPB; Infused Over: 1 hrs; Site: right bp antecubital; 18:30 Drug: Flomax 0.4 mg Route: PO; bp 19:36 Follow up: Response: No adverse reaction ll2 18:30 Drug: Rocephin 1 grams Route: IV; Rate: calculated rate; Site: right antecubital; bp 19:36 Follow up: Response: No adverse reaction ll2 19:37 Follow up: Response: No adverse reaction ll2 18:30 Drug: DiFLUcan 150 mg Route: PO; bp 19:37 Follow up: Response: No adverse reaction ll2 19:35 Drug: Zofran (Ondansetron) 4 mg Route: IVP; Site: right antecubital; ll2 19:36 Drug: morphine 4 mg Route: IVP; Site: right antecubital; ll2 Outcome: 18:20 Discharge ordered by . kb 20:03 Patient left the ED. ll2 Signatures: Dispatcher [employer] EDMS Dominga Anderson, ALYSHA-C SAFETY TECH-Jossy See [facility] Domingo Orozco RN RN jd3 Juan Trevino, RN RN Nadiya Shah mw3 Fabiola Adhikari, AICHA [place] ll2 Buddy Casper tt3
--- NOTE | 2020-05-02 18:22 | EDPHYS ---
Physician Documentation [facility] Name: Radha Alvarado Age: 39 yrs Sex: Female : 1980 Arrival Date: 05/02/2020 Time: 15:36 Bed 14 Private MD: ED Physician Corby Real HPI: 05/02 17:27 This 39 yrs old Female presents to ER via Ambulatory with complaints of kb Possible Kidney Stone. 17:27 The patient complains of pain in the left flank. The pain radiates to the left lower kb quadrant. Onset: The symptoms/episode began/occurred yesterday. Modifying factors: The symptoms are alleviated by nothing. the symptoms are aggravated by nothing. Associated signs and symptoms: Pertinent positives: dysuria, urinary frequency, hematuria. Severity of pain: At its worst the pain was moderate in the emergency department the pain is unchanged. The patient has experienced similar episodes in the past, a few times. The patient has not recently seen a physician. 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 - Social history:: Smoking status: Patient/guardian denies using tobacco, the patient reports quitting approximately 10 years ago. ROS: 17:23 Constitutional: Negative for fever, chills, and weight loss, Cardiovascular: Negative kb for chest pain, palpitations, and edema, Respiratory: Negative for shortness of breath, cough, wheezing, and pleuritic chest pain, Abdomen/GI: Negative for abdominal pain, nausea, vomiting, diarrhea, and constipation, MS/Extremity: Negative for injury and deformity, Skin: Negative for injury, rash, and discoloration, Neuro: Negative for headache, weakness, numbness, tingling, and seizure. 17:23 : Positive for flank pain, urinary frequency, small amounts, hematuria, burning with urination. Exam: 17:23 Constitutional: This is a well developed, well nourished patient who is awake, alert, kb and in no acute distress. Head/Face: Normocephalic, atraumatic. Chest/axilla: Normal chest wall appearance and motion. Nontender with no deformity. No lesions are appreciated. Cardiovascular: Regular rate and rhythm with a normal S1 and S2. No gallops, murmurs, or rubs. Normal PMI, no JVD. No pulse deficits. Respiratory: Lungs have equal breath sounds bilaterally, clear to auscultation and percussion. No rales, rhonchi or wheezes noted. No increased work of breathing, no retractions or nasal flaring. Skin: Warm, dry with normal turgor. Normal color with no rashes, no lesions, and no evidence of cellulitis. 17:23 Abdomen/GI: Inspection: abdomen appears normal, Bowel sounds: normal, in all quadrants, Palpation: soft, in all quadrants, mild abdominal tenderness, in the left lower quadrant. 17:23 Back: CVA tenderness, that is mild, is noted on the left. 17:23 Neuro: Orientation: is normal, to person, place, time \T\ situation. Mentation: is normal, able to follow commands, Motor: is normal, moves all fours, Sensation: is normal, Gait: is steady, without difficulty. Vital Signs: 15:46 BP 120 / 87; Pulse 68; Resp 17 S; Temp 97.6(TE); Pulse Ox 99% on R/A; Weight 58.06 kg jd3 (R); Height 5 ft. 2 in. (157.48 cm) (R); Pain 10/10; 16:29 BP 140 / 78; Pulse 76; Resp 16; Pulse Ox 100% on R/A; mh5 18:16 BP 123 / 70; Pulse 56; Resp 17; Pulse Ox 100% ; bp 15:46 Body Mass Index 23.41 (58.06 kg, 157.48 cm) jd3 MDM: 15:54 Patient medically screened. kb 17:25 Data reviewed: vital signs, nurses notes. Data interpreted: Pulse oximetry: on room air kb is 100 %. Interpretation: normal. 18:16 Counseling: I had a detailed discussion with the patient and/or guardian regarding: the kb historical points, exam findings, and any diagnostic results supporting the discharge/admit diagnosis, lab results, radiology results, the need for outpatient follow up, a urologist, to return to the emergency department if symptoms worsen or persist or if there are any questions or concerns that arise at home. 05/02 15:56 Order name: Basic Metabolic Panel; Complete Time: 17:01 kb 05/02 15:56 Order name: CBC with Diff; Complete Time: 17:09 kb 05/02 16:26 Order name: Urine Culture iw 05/02 16:26 Order name: HCG-Quantitative; Complete Time: 17:09 iw 05/02 16:29 Order name: Urine Microscopic Only; Complete Time: 16:55 bp 05/02 15:56 Order name: CT Stone Protocol; Complete Time: 18:11 kb 05/02 15:56 Order name: IV Saline Lock; Complete Time: 16:31 kb 05/02 15:56 Order name: Labs collected and sent; Complete Time: 16:31 kb Administered Medications: 16:20 Drug: NS 0.9% 1000 ml Route: IV; Rate: 1000 ml; Site: right antecubital; bp 16:20 Drug: TORadol 30 mg Route: IVP; Site: right antecubital; bp 16:53 Follow up: Response: No adverse reaction bp 16:53 Drug: morphine 4 mg Route: IVP; Site: right antecubital; bp 19:36 Follow up: Response: No adverse reaction ll2 18:30 Drug: Magnesium Sulfate 1 grams Route: IVPB; Infused Over: 1 hrs; Site: right bp antecubital; 18:30 Drug: Flomax 0.4 mg Route: PO; bp 19:36 Follow up: Response: No adverse reaction ll2 18:30 Drug: Rocephin 1 grams Route: IV; Rate: calculated rate; Site: right antecubital; bp 19:36 Follow up: Response: No adverse reaction ll2 19:37 Follow up: Response: No adverse reaction ll2 18:30 Drug: DiFLUcan 150 mg Route: PO; bp 19:37 Follow up: Response: No adverse reaction ll2 19:35 Drug: Zofran (Ondansetron) 4 mg Route: IVP; Site: right antecubital; ll2 19:36 Drug: morphine 4 mg Route: IVP; Site: right antecubital; ll2 Disposition: 05/03 13:08 Co-signature as Attending Physician, Corby Real MD. rn Disposition: 05/02/20 18:20 Discharged to Home. Impression: Calculus of kidney and ureter, Urinary tract infection, site not specified, Candidiasis of vulva and vagina. - Condition is Stable. - Discharge Instructions: Vaginal Yeast Infection, Adult, Kidney Stones, [id number], Urinary Tract Infection, Adult, Vmfa-ew-[id number], Dietary Guidelines to Help Prevent Kidney Stones, Form - Return To Work. - Prescriptions for Augmentin 875- 125 mg Oral Tablet - take 1 tablet by ORAL route every 12 hours for 10 days; 20 tablet. Tylenol- Codeine #3 300-30 mg Oral Tablet - take 1 tablet by ORAL route every 6 hours As needed; 15 tablet. Zofran 4 mg Oral Tablet - take 1 tablet by ORAL route every 6 hours As needed; 20 tablet. Flomax 0.4 mg Oral Capsule, Sust. Release 24 hr - take 1 capsule by ORAL route once daily 1/2 hour following the same meal each day; 30 capsule. Diclofenac Sodium 75 mg Oral Tablet, Delayed Release (E.C.) - take 1 tablet by ORAL route 2 times per day As needed; 30 tablet. - Medication Reconciliation Form, Thank You Letter, Antibiotic Education, Prescription Opioid Use, Family Work Release form. - Follow up: Emergency Department; When: As needed; Reason: Worsening of condition. Follow up: Victor Manuel Zapata; When: 2 - 3 days; Reason: Recheck today's complaints. Signatures: Dispatcher [employer] [facility] Dominga Anderson, IMAGING SYSTEM ADMINISTRATOR-C IMAGING SYSTEM ADMINISTRATOR-Corby Martinez MD MD rn Davies, Jonathon, RN RN jd3 Peltier, Brian, RN RN bp Linscombe, Lacie, RN RN ll2 Corrections: (The following items were deleted from the chart) 05/02 16:31 15:42 Urine Test ordered. kb bp 16:31 15:42 Urine Dipstick-Ancillary ordered. kb bp 16:48 16:27 URINALYSIS+U.LAB.BRZ ordered. [facility] EDNM 20:03 18:20 05/02/2020 18:20 Discharged to Home. Impression: Calculus of kidney and ureter; ll2 Urinary tract infection, site not specified; Candidiasis of vulva and vagina. Condition is Stable. Discharge Instructions: Vaginal Yeast Infection, Adult, Kidney Stones, Ecfr-np-Eozv, Urinary Tract Infection, Adult, Cuwp-yu-Eutw, Dietary Guidelines to Help Prevent Kidney Stones. Prescriptions for Augmentin 875-125 mg Oral Tablet - take 1 tablet by ORAL route every 12 hours for 10 days; 20 tablet, Tylenol-Codeine #3 300-30 mg Oral Tablet - take 1 tablet by ORAL route every 6 hours As needed; 15 tablet, Zofran 4 mg Oral Tablet - take 1 tablet by ORAL route every 6 hours As needed; 20 tablet, Flomax 0.4 mg Oral Capsule, Sust. Release 24 hr - take 1 capsule by ORAL route once daily 1/2 hour following the same meal each day; 30 capsule, Diclofenac Sodium 75 mg Oral Tablet, Delayed Release (E.C.) - take 1 tablet by ORAL route 2 times per day As needed; 30 tablet. and Forms are Medication Reconciliation Form, Thank You Letter, Antibiotic Education, Prescription Opioid Use. Follow up: Emergency Department; When: As needed; Reason: Worsening of condition. Follow up: Victor Manuel Zapata; When: 2 - 3 days; Reason: Recheck today's complaints. kb
[2020-05-02] MEDS ORDERED: FLUCONAZOLE 100 MG TAB ONE (18:47)
[2020-05-02] MEDS ORDERED: CEFTRIAXONE/SWI 1gm 1 GM/10 ML SYR ONE (18:47)
[2020-05-02] MEDS ORDERED: TAMSULOSIN 0.4 MG SR CAP ONE (18:47)
[2020-05-02] MEDS ORDERED: Magnesium Sulfate 2gm IVPB 2 G/50 ML BAG IV ONE (18:48)
[2020-05-02] MEDS ORDERED: NA CHLORIDE 0.9% 250 ML ONE (18:48)
[2020-05-02 20:09] VITALS: TEMP 97.6
[2020-05-02 20:10] VITALS: O2SAT 100
[2020-05-02 20:12] VITALS: BP 123/70
== END 2020-05-02 20:03 | disposition home or self-care (01) ==
LOC: ER 15:35
DX: N20.2 Calculus of kidney with calculus of ureter (principal); N39.0 Urinary tract infection, site not specified; B37.3 Candidiasis of vulva and vagina; F41.8 Other specified anxiety disorders; Z87.442 Personal history of urinary calculi; Z88.2 Allergy status to sulfonamides
CPT/HCPCS: 36415; 74176; 76377; 80048; 81015; 84702; 85025; 87086; 87088; 96374; 96375; 99284; J0696; J2405; J3475; J7030; J7050

== ENCOUNTER 2020-05-04 11:17 | Emergency (ER) | payer SELFPAY ==
--- OUTSIDE RECORDS SUMMARY | 2020-05-04 11:19 | XMS REPORT | Continuity of Care Document ---
:1980 Author Organization [facility] t Address [address] [place] [address] Dr. Coronado [address] [place] [id number] Care Team Providers Name Role Phone Unavailable Unavailable Unavailable Problems This patient has no known problems. Allergies, Adverse Reactions, Alerts This patient has no known allergies or adverse reactions. Medications This patient has no known medications. Procedures This patient has no known procedures. Results This patient has no known results.
[2020-05-04] MEDS ORDERED: ONDANSETRON 4 MG/2 ML VIAL ONE (15:23)
[2020-05-04] MEDS ORDERED: MEPERIDINE HCL 25 MG/ML SYR ONE (15:23)
[2020-05-04] MEDS ORDERED: NA CHLORIDE 0.9% 1,000 ML ONE (15:23)
[2020-05-04 15:31] LABS: Absolute Lymphocytes (CBC) 0.6 K/uL (0.7-4.9); Basophils % 0.4 % (0-1.3); Hematocrit 40.4 % (36.0-45.0); Lymphocytes % 3.8 % (15.3-44.8); RBC Red Blood Cell Count 4.48 M/uL (3.86-4.86)
[2020-05-04 15:48] LABS: Albumin 3.9 g/dL (3.4-5.0); Bilirubin Direct 0.3 mg/dL (0-0.2); Bilirubin Total 0.6 mg/dL (0.2-1.0); Potassium 3.6 mmol/L (3.5-5.1); Protein, Total 7.7 g/dL (6.4-8.2)
[2020-05-04 15:57] LABS: Blood Morphology Comment NOT SEEN (NOT SEEN); Platelet Estimate ADEQ; White Blood Cell Scan OK (OK)
--- NOTE | 2020-05-04 15:57 | RAD REPORT ---
EXAM DESCRIPTION: RAD - Abdomen 1 View (KUB) - 05/04/2020 3:34 pm CLINICAL HISTORY: Abdomen pain. FINDINGS: The bowel gas pattern is unremarkable. 4 millimeter calculus within the region of the left UPJ without significant change from prior CT scan Heriberto sacralization
--- NOTE | 2020-05-04 16:21 | RAD REPORT ---
EXAM DESCRIPTION: US - Renal Ultrasound-Limited - 05/04/2020 4:11 pm CLINICAL HISTORY: Left flank pain COMPARISON: CT May 02, 2020 FINDINGS: Mild left hydronephrosis. 4 millimeter calculus left UPJ. Evaluation of the right kidney was not requested. No gross abnormality of bladder IMPRESSION: 4 millimeter calculus left UPJ with mild left hydronephrosis
[2020-05-04] MEDS ORDERED: CEFTRIAXONE/SWI 1gm 1 GM/10 ML SYR ONE (16:51)
[2020-05-04] MEDS ORDERED: TAMSULOSIN 0.4 MG SR CAP ONE (16:51)
[2020-05-04] MEDS ORDERED: KETOROLAC 30 MG/ML INJ ONE (16:51)
[2020-05-04] MEDS ORDERED: MAGNESIUM SULFATE 1 gm IVPB 1 GM/100 ML BAG IV ONE (16:51)
[2020-05-04 17:06] LABS: Urine Glucose NEGATIVE (NEG); Urine Specific Gravity >1.030 (1.005-1.030)
[2020-05-04 17:07] LABS: Urine Blood 3+ (NEG); Urine Protein NEGATIVE (NEG)
--- NOTE | 2020-05-04 17:45 | ER ---
Nurse's Notes [facility] Name: Radha Alvarado Age: 39 yrs Sex: Female : 1980 Arrival Date: 05/04/2020 Time: 11:19 Bed 23 Private MD: Diagnosis: Calculus of ureter-left;Unspecified renal colic Presentation: 05/04 11:58 Chief complaint: Patient states: was seen here Monday and was diagnosed with kidney iw stone and is still having a lot of pain, has not passed the stone yet. Coronavirus screen: At this time, the client does not indicate any symptoms associated with coronavirus-19. Ebola Screen: Patient negative for fever greater than or equal to 101.5 degrees Fahrenheit, and additional compatible Ebola Virus Disease symptoms Patient denies exposure to infectious person. Patient denies travel to an Ebola-affected area in the 21 days before illness onset. No symptoms or risks identified at this time. Initial Sepsis Screen: Does the patient meet any 2 criteria? No. Patient's initial sepsis screen is negative. Does the patient have a suspected source of infection? No. Patient's initial sepsis screen is negative. Risk Assessment: Do you want to hurt yourself or someone else? Patient reports no desire to harm self or others. Onset of symptoms was May 04, 2020. 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 Nutritional screening: No deficits noted. vg1 Tuberculosis screening: No symptoms or risk factors identified. Fall Risk None identified. Assessment: 14:59 General: Appears in no apparent distress. comfortable, Behavior is calm, cooperative. vg1 Pain: Complains of pain in left low back Pain currently is 10 out of 10 on a pain scale. Pain began 2-3 days ago. Neuro: Level of Consciousness is awake, alert, obeys commands, Oriented to person, place, time, situation. Cardiovascular: Patient's skin is warm and dry. Respiratory: Airway is patent Respiratory effort is even, unlabored. GI: Bowel sounds present X 4 quads. Abd is soft and non tender X 4 quads. : Reports was seen at Dr office and was dx with UTI. Came to ED on Monday due to increase in back pain. EENT: No signs and/or symptoms were reported regarding the EENT system. Derm: Skin is intact, is healthy with good turgor. Musculoskeletal: Circulation, motion, and sensation intact. 17:19 Reassessment: Patient appears in no apparent distress at this time. Patient and/or vg1 family updated on plan of care and expected duration. Pain level reassessed. Patient is alert, oriented x 3, equal unlabored respirations, skin warm/dry/pink. Rates pain level as 8/10, dull pain. Patient states feeling better. Vital Signs: 11:58 BP 178 / 90; Pulse 43; Resp 16; Temp 97.0; Pulse Ox 100% on R/A; Weight 58.06 kg; iw Height 5 ft. 2 in. (157.48 cm); Pain 10/10; 15:01 BP 132 / 81; Pulse 50; Resp 18; Pulse Ox 100% on R/A; vg1 16:00 BP 143 / 81; Pulse 43; Resp 16; Pulse Ox 98% on R/A; vg1 16:45 BP 168 / 84; Pulse 44; Resp 16; Pulse Ox 99% on R/A; vg1 17:00 BP 98 / 62; Pulse 46; Resp 18; Pulse Ox 97% on R/A; vg1 17:15 BP 91 / 65; Pulse 66; Resp 18; Pulse Ox 99% on R/A; vg1 17:30 BP 103 / 59; Pulse 46; Resp 18; Pulse Ox 98% on R/A; vg1 11:58 Body Mass Index 23.41 (58.06 kg, 157.48 cm) iw ED Course: 11:19 Patient arrived in ED. ds1 12:00 Triage completed. iw 12:00 Arm band placed on. iw 14:42 Brian Gonzalez PA is PHCP. cp 14:42 Corby Real MD is Attending Physician. cp 14:47 Mirtha Baez, RN is Primary Nurse. vg1 15:02 Patient has correct armband on for positive identification. Bed in low position. Call vg1 light in reach. Side rails up X 1. 15:15 Missed attempt(s): 22 gauge in right antecubital area. vg1 15:22 Initial lab(s) drawn, by me, sent to lab. Inserted saline lock: 22 gauge in right jp3 forearm, using aseptic technique. Blood collected. Patient maintains SpO2 saturation greater than 95% on room air. 15:34 XRAY KUB In Process Unspecified. EDMS 15:38 Warm blanket given. Verbal reassurance given. sandblasting supervisor on. Pulse ox on. NIBP on. jp3 15:38 EKG done, by ED staff, reviewed by Brian LAFLEUR. jp3 15:50 Patient taken to ultrasound. via wheelchair. vg1 16:11 US Rp Exam Limited In Process Unspecified. EDMS 17:42 Victor Manuel Zapata MD is Referral Physician. cp 18:02 No provider procedures requiring assistance completed. IV discontinued, intact, vg1 bleeding controlled, No redness/swelling at site. Pressure dressing applied. Administered Medications: 15:28 Drug: NS 0.9% 1000 ml Route: IV; Rate: 1 bolus; Site: right forearm; vg1 16:29 Follow up: IV Status: Completed infusion vg1 15:28 Drug: Zofran (Ondansetron) 4 mg Route: IVP; Site: right forearm; vg1 16:29 Follow up: Response: No adverse reaction vg1 15:28 Drug: Demerol 25 mg {Note: rass0.} Route: IVP; Site: right forearm; vg1 16:29 Follow up: Response: Pain is unchanged, physician notified vg1 16:44 Drug: Rocephin 1 grams Route: IV; Rate: calculated rate; Site: right wrist; vg1 18:03 Follow up: Response: No adverse reaction; IV Status: Completed infusion vg1 16:44 Drug: TORadol - Ketorolac 15 mg Route: IVP; Site: right wrist; vg1 18:03 Follow up: Response: Pain is decreased vg1 16:44 Drug: Magnesium Sulfate 1 grams Route: IVPB; Infused Over: 1 hrs; Site: right wrist; vg1 17:45 Follow up: IV Status: Completed infusion vg1 16:45 Drug: Flomax 0.4 mg Route: PO; vg1 18:03 Follow up: Response: No adverse reaction vg1 Outcome: 17:43 Discharge ordered by . cp 18:02 Discharged to home ambulatory. vg1 18:02 Condition: stable 18:02 Discharge instructions given to patient, Instructed on discharge instructions, follow up and referral plans. medication usage, Demonstrated understanding of instructions, follow-up care, medications, Prescriptions given X 3. 18:02 Patient left the ED. vg1 Signatures: Dispatcher [employer] [facility] Yanely Horvath ds1 Marily Colon, RN RN iw Brian Gonzalez PA PA cp Pisarski, Jacob jp3 Mirtha Baez, RN RN vg1
--- NOTE | 2020-05-04 17:45 | EDPHYS ---
Physician Documentation [facility] Name: Radha Alvarado Age: 39 yrs Sex: Female : 1980 Arrival Date: 05/04/2020 Time: 11:19 Bed 23 Private MD: ED Physician Corby Real HPI: 05/04 14:55 This 39 yrs old Female presents to ER via Wheelchair with complaints of cp Possible Kidney Stone. 14:55 The patient complains of pain in the left flank. The pain radiates to the left side of cp abdomen. 14:55 Onset: The symptoms/episode began/occurred 2 day(s) ago, and became worse this morning. cp Associated signs and symptoms: Pertinent positives: nausea, vomiting, Pertinent negatives: fever, pain radiating to the lower extremities. Patient was seen 2 days ago in this ED and diagnosed with left side ureter stone. Patient reports continued pain and nausea and vomiting. 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 cp 15:00 Eyes: Negative for injury, pain, redness, and discharge. cp 15:00 Cardiovascular: Negative for chest pain. 15:00 Respiratory: Negative for cough, shortness of breath, wheezing. 15:00 Abdomen/GI: Positive for abdominal pain, nausea and vomiting, Negative for diarrhea, constipation, anorexia, black/tarry stool, rectal bleeding. 15:00 Back: Positive for flank pain, on the left. 15:00 Neuro: Negative for altered mental status, headache, weakness. 15:00 All other systems are negative. Exam: 15:05 Constitutional: The patient appears in no acute distress, alert, awake, non-toxic, well cp developed, well nourished, uncomfortable. 15:05 Head/Face: Normocephalic, atraumatic. cp 15:05 Eyes: Periorbital structures: appear normal, Conjunctiva: normal, no exudate, no injection, Sclera: no appreciated abnormality, Lids and lashes: appear normal, bilaterally. 15:05 ENT: External ear(s): are unremarkable, Nose: is normal, Posterior pharynx: Airway: no evidence of obstruction, patent. 15:05 Neck: ROM/movement: is normal, is supple, without pain, no range of motions limitations. 15:05 Chest/axilla: Inspection: normal, Palpation: is normal, no crepitus, no tenderness. 15:05 Cardiovascular: Rate: bradycardic, Rhythm: regular, Edema: is not appreciated, JVD: is not appreciated. 15:05 Respiratory: the patient does not display signs of respiratory distress, Respirations: normal, no use of accessory muscles, no retractions, labored breathing, is not present, Breath sounds: are clear throughout, no decreased breath sounds. 15:05 Abdomen/GI: Inspection: abdomen appears normal, Bowel sounds: active, all quadrants, Palpation: soft, in all quadrants, moderate abdominal tenderness, in the posterior aspect of left lateral abdomen, anterior aspect of left lateral abdomen, left upper quadrant and left lower quadrant. 15:05 Skin: no rash present. 15:05 Neuro: Orientation: to person, place \T\ time. Mentation: is normal, Motor: moves all fours, strength is normal. 15:37 ECG was reviewed by the Attending Physician. cp Vital Signs: 11:58 BP 178 / 90; Pulse 43; Resp 16; Temp 97.0; Pulse Ox 100% on R/A; Weight 58.06 kg; iw Height 5 ft. 2 in. (157.48 cm); Pain 10/10; 15:01 BP 132 / 81; Pulse 50; Resp 18; Pulse Ox 100% on R/A; vg1 16:00 BP 143 / 81; Pulse 43; Resp 16; Pulse Ox 98% on R/A; vg1 16:45 BP 168 / 84; Pulse 44; Resp 16; Pulse Ox 99% on R/A; vg1 17:00 BP 98 / 62; Pulse 46; Resp 18; Pulse Ox 97% on R/A; vg1 17:15 BP 91 / 65; Pulse 66; Resp 18; Pulse Ox 99% on R/A; vg1 17:30 BP 103 / 59; Pulse 46; Resp 18; Pulse Ox 98% on R/A; vg1 11:58 Body Mass Index 23.41 (58.06 kg, 157.48 cm) iw MDM: 14:57 Patient medically screened. cp 15:00 Differential diagnosis: nephrolithiasis, pyelonephritis, UTI, sepsis. cp 17:42 Data reviewed: vital signs, nurses notes, lab test result(s), radiologic studies, CT cp scan, and as a result, I will discharge patient. 17:42 Counseling: I had a detailed discussion with the patient and/or guardian regarding: the cp historical points, exam findings, and any diagnostic results supporting the discharge/admit diagnosis, lab results, radiology results. Response to treatment: the patient's symptoms have markedly improved after treatment. ED course: VSS. Pain and nausea markedly improved. No vomiting observed. Patient tolerating po fluids. Will discharge to home for continued monitoring. 05/04 14:51 Order name: Urine Microscopic Only 05/04 14:51 Order name: Basic Metabolic Panel; Complete Time: 16:26 05/04 14:51 Order name: CBC with Diff; Complete Time: 16:26 05/04 16:26 Interpretation: Normal except: WBC 16.20. 05/04 14:51 Order name: Hepatic Function; Complete Time: 16:26 05/04 14:51 Order name: Lipase; Complete Time: 16:26 05/04 15:57 Order name: CBC Smear Scan; Complete Time: 16:26 [facility] 05/04 14:55 Order name: US Rp Exam Limited; Complete Time: 16:26 05/04 14:55 Order name: XRAY KUB; Complete Time: 16:26 05/04 16:53 Order name: Urine Dipstick--Ancillary (enter results) 05/04 16:54 Order name: Urine Dipstick-Ancillary [facility] 05/04 17:13 Order name: Urine Culture 05/04 17:18 Order name: Urine --Ancillary (enter results) 05/04 17:19 Order name: Urine --Ancillary [facility] 05/04 14:51 Order name: Urine Dipstick-Ancillary (obtain specimen); Complete Time: 17:14 05/04 14:51 Order name: Urine Test (obtain specimen); Complete Time: 17:16 05/04 14:51 Order name: IV Saline Lock; Complete Time: 15:23 05/04 14:51 Order name: Labs collected and sent; Complete Time: 15:23 cp 05/04 15:18 Order name: EKG; Complete Time: 15:18 cp 05/04 15:18 Order name: EKG - Nurse/Tech; Complete Time: 15:38 cp 05/04 16:28 Order name: PO challenge; Complete Time: 17:39 cp 05/04 17:11 Order name: PO challenge; Complete Time: 17:39 cp EC:37 Rate is 43 beats/min. Rhythm is regular. IN interval is normal. QRS interval is normal. cp QT interval is normal. Interpreted by me. Reviewed by me. Administered Medications: 15:28 Drug: NS 0.9% 1000 ml Route: IV; Rate: 1 bolus; Site: right forearm; vg1 16:29 Follow up: IV Status: Completed infusion vg1 15:28 Drug: Zofran (Ondansetron) 4 mg Route: IVP; Site: right forearm; vg1 16:29 Follow up: Response: No adverse reaction vg1 15:28 Drug: Demerol 25 mg {Note: rass0.} Route: IVP; Site: right forearm; vg1 16:29 Follow up: Response: Pain is unchanged, physician notified vg1 16:44 Drug: Rocephin 1 grams Route: IV; Rate: calculated rate; Site: right wrist; vg1 18:03 Follow up: Response: No adverse reaction; IV Status: Completed infusion vg1 16:44 Drug: TORadol - Ketorolac 15 mg Route: IVP; Site: right wrist; vg1 18:03 Follow up: Response: Pain is decreased vg1 16:44 Drug: Magnesium Sulfate 1 grams Route: IVPB; Infused Over: 1 hrs; Site: right wrist; vg1 17:45 Follow up: IV Status: Completed infusion vg1 16:45 Drug: Flomax 0.4 mg Route: PO; vg1 18:03 Follow up: Response: No adverse reaction vg1 Disposition: 18:29 Co-signature as Attending Physician, Corby Real MD. rn Disposition: 05/04/20 17:43 Discharged to Home. Impression: Calculus of ureter - left, Unspecified renal colic. - Condition is Stable. - Discharge Instructions: Kidney Stones, Renal Colic. - Prescriptions for Cipro 500 mg Oral Tablet - take 1 tablet by ORAL route every 12 hours for 7 days; 14 tablet. promethazine 25 mg Oral Tablet - take 1 tablet by ORAL route every 6 hours As needed; 20 tablet. Ultracet 37.5- 325 mg Oral Tablet - take 1 tablet by ORAL route every 6 hours - for up to 5 days; do not exceed 8 tablets per day.; 20 tablet. - Medication Reconciliation Form, Thank You Letter, Antibiotic Education, Prescription Opioid Use form. - Follow up: Victor Manuel Zapata MD; When: 1 - 2 days; Reason: Recheck today's complaints. - Problem is an ongoing problem. - Symptoms have improved. Signatures: Dispatcher [employer] EDMS Marily Colon RN RN iw Corby Real MD MD rn Page, Corey, PA PA Mirtha Rojas RN RN vg1 Corrections: (The following items were deleted from the chart) 16:56 16:27 Lee ordered. cp vg1 18:02 17:43 05/04/2020 17:43 Discharged to Home. Impression: Calculus of ureter - left; vg1 Unspecified renal colic. Condition is Stable. Forms are Medication Reconciliation Form, Thank You Letter, Antibiotic Education, Prescription Opioid Use. Follow up: Victor Manuel Zapata; When: 1 - 2 days; Reason: Recheck today's complaints. Problem is an ongoing problem. Symptoms have improved. cp
[2020-05-04 17:47] LABS: Urine Bacteria 20-50 /HPF (<20); Urine Mucus HEAVY /HPF (NONE SEEN); Urine RBC >50 /HPF (NONE SEEN)
[2020-05-04 18:15] VITALS: TEMP 97
[2020-05-04 18:23] VITALS: BP 103/59; O2SAT 98
[2020-05-04 18:30] LABS: Urine Specific Gravity >1.030 (1.005-1.030)
--- NOTE | 2020-05-06 00:01 | EKG ---
Test Date: 2020-05-04 Test Time: 15:30:20 Molding Manager: KATIA MEASUREMENT RESULTS: Intervals: Rate: 43 LA: 118 QRSD: 88 QT: 538 QTc: 454 [place]: P: 64 LA: 118 QRS: 78 T: 65 INTERPRETIVE STATEMENTS: Marked sinus bradycardia Abnormal ECG Compared to ECG 09/04/2014 19:11:25 Sinus rhythm no longer present Electronically Signed On 05-05-20 23:58:39 PHARMACY ANALYST by Ren Jacobo
== END 2020-05-04 18:02 | disposition home or self-care (01) ==
LOC: ER 11:17
DX: N20.1 Calculus of ureter (principal); N23 Unspecified renal colic; Z87.442 Personal history of urinary calculi; Z88.2 Allergy status to sulfonamides
CPT/HCPCS: 36415; 74018; 76775; 80048; 80076; 81003; 81015; 81025; 83690; 85025; 87086; 87088; 93005; 99285; J0696; J2175; J2405; J3475; J7030

== ENCOUNTER 2020-06-01 18:00 | Emergency (ER) | payer SELFPAY ==
--- OUTSIDE RECORDS SUMMARY | 2020-06-01 18:03 | XMS REPORT | Continuity of Care Document ---
:1980 Author Organization [facility] t Address [address] [place] [address] Dr. Coronado [address] [place] [id number] Care Team Providers Name Role Phone Unavailable Unavailable Unavailable Problems This patient has no known problems. Allergies, Adverse Reactions, Alerts This patient has no known allergies or adverse reactions. Medications This patient has no known medications. Procedures This patient has no known procedures. Results This patient has no known results.
--- NOTE | 2020-06-01 21:00 | ER ---
Nurse's Notes [facility] Name: Radha Alvarado Age: 39 yrs Sex: Female : 1980 Arrival Date: 06/01/2020 Time: 18:03 Bed External Waiting Private MD: Diagnosis: Presentation: 06/01 18:20 Chief complaint: Patient states: CP and irregular pulse for 1 month, worse for 2 weeks. ll1 HR 90-150 at work today. States she has a stuck kidney stone on the L she has lithotripsy scheduled for. Coronavirus screen: Client denies travel out of the [place] in the last 14 days. At this time, the client does not indicate any symptoms associated with coronavirus-19. Ebola Screen: Patient denies travel to an Ebola-affected area in the 21 days before illness onset. Initial Sepsis Screen: Does the patient meet any 2 criteria? HR > 90 bpm. No. Patient's initial sepsis screen is negative. Does the patient have a suspected source of infection? Yes: Dysuria/Frequency/Urgency/UTI. Risk Assessment: Do you want to hurt yourself or someone else? Patient reports no desire to harm self or others. Onset of symptoms was May 04, 2020. 18:20 Method Of Arrival: Ambulatory ll1 18:20 Acuity: TITUS 3 ll1 Historical: - Allergies: 18:24 Sulfa (Sulfonamide Antibiotics); ll1 - PMHx: 18:24 Anxiety; Depression; Kidney stones; UTI; ll1 - PSHx: 18:24 None; ll1 - Immunization history:: Flu vaccine is not up to date. - Social history:: Smoking status: Patient denies any tobacco usage or history of. Vital Signs: 18:20 BP 127 / 86; Pulse 100; Resp 17; Temp 98.0; Pulse Ox 100% ; Weight 58.06 kg; Height 5 ll1 ft. 2 in. (157.48 cm); Pain 8/10; 18:20 Body Mass Index 23.41 (58.06 kg, 157.48 cm) ll1 ED Course: 18:03 Patient arrived in ED. ds1 18:23 Triage completed. ll1 18:24 Arm band placed on. ll1 Administered Medications: No medications were administered Outcome: 21:00 Patient left the ED. sg Signatures: Omar Zhao RN RN sg Yanely Horvath ds1 Jennifer Henderson, RN RN ll1
[2020-06-01 21:35] VITALS: BP 127/86; TEMP 98; O2SAT 100
--- NOTE | 2020-06-03 07:05 | EKG ---
Test Date: 2020-06-01 Test Time: 18:29:54 Recycle Coordinator: HALEIGH MEASUREMENT RESULTS: Intervals: Rate: 81 GA: 126 QRSD: 86 QT: 398 QTc: 462 [place]: P: 82 GA: 126 QRS: 84 T: 40 INTERPRETIVE STATEMENTS: Normal sinus rhythm Right atrial enlargement Borderline ECG Compared to ECG 05/04/2020 15:30:20 Atrial abnormality now present Sinus bradycardia no longer present Electronically Signed On 06-03-20 07:02:39 CDT by Ren Jacobo
== END 2020-06-01 21:00 | disposition left against medical advice (07) ==
LOC: ER 18:00
DX: R07.9 Chest pain, unspecified (principal); Z53.21 Procedure and treatment not carried out due to patient leaving prior to being seen by health care provider
CPT/HCPCS: 93005; 99281

== ENCOUNTER 2020-06-04 07:58 | Day surgery (SDC) | payer SELFPAY ==
[2020-06-04] MEDS ORDERED: Gentamicin Inj 120 MG in NA CHLORIDE 0.9% 100 ML IV SCH (08:00)
[2020-06-04 08:24] LABS: Specific Gravity 1.015 (1.005-1.030)
[2020-06-04] MEDS ORDERED: Ringers Lactate 1,000 ML IV ONE (08:36)
[2020-06-04] MEDS: AMPICILLIN SODIUM 2 GM in NA CHLORIDE 0.9% 100 ML IVPB SCH ×2 (08:45→09:06)
[2020-06-04] MEDS ORDERED: MIDAZOLAM HCL 2 MG/2 ML INJ ONE (08:52)
[2020-06-04] MEDS ORDERED: LIDOCAINE 1% MPF 5 ML VIAL ONE (08:53)
[2020-06-04] MEDS ORDERED: FENTANYL CITR 100 MCG/2 ML ONE (08:53)
[2020-06-04] MEDS ORDERED: propofoL 200 MG/20 ML VIAL IV ONE (08:53)
[2020-06-04] MEDS ORDERED: HYDROCODONE/APAP 5/325 MG TAB PO PRN (08:54)
[2020-06-04] MEDS ORDERED: PHENAZOPYRIDINE 100MG TAB PO ONE ×2 (08:54→10:43)
[2020-06-04] MEDS ORDERED: KETOROLAC 30 MG/ML INJ ONE (09:18)
[2020-06-04] MEDS ORDERED: dexAMETHasone 10 MG/ML VIAL ONE (09:18)
[2020-06-04] MEDS ORDERED: ONDANSETRON 4 MG/2 ML VIAL ONE ×2 (09:33→10:03)
[2020-06-04] MEDS: HYDROMORPHONE HCL 2 MG/ML inj ONE ×3 (09:48→10:08)
[2020-06-04 10:02] VITALS: O2SAT 100
[2020-06-04 10:37] VITALS: BP 107/69; TEMP 97.6
[2020-06-04] MEDS ORDERED: HYDROCODONE/APAP 5/325 MG TAB ONE (10:43)
--- NOTE | 2020-06-04 10:58 | OP ---
Surgeon: MARY GONZALEZ Preoperative Diagnoses: 1.Left flank pain. 2.Left ureterolithiasis 4.5 mm. Postoperative Diagnoses: 1.Left flank pain. 2.Left ureterolithiasis 4.5 mm. Principle Procedures: 1.Cystoscopy. 2.Left retrograde pyelography. 3.Left distal ureteroscopy. 4.Left ureteral stent placement. Indication For Procedure: Ms. Alvarado presented to the Urology Clinic with persistent left flank pa in associated with an obstructing 4.5 mm midureteral calculus. This has been present since the early part of April and she presents for definitive management at this time with persistent pain noted. Procedure In Detail: The patient was consented in the preoperative holding area before being transfe rred to the operative suite where general anesthesia was induced. She was given ampicillin and genta micin IV antimicrobial prophylaxis and pneumo boots were provided for DVT prophylaxis. She was place d in the lithotomy position, padded and secured to the table appropriately. Her genitalia were prepp ed using Hibiclens and she was draped in standard fashion. The case was begun using a 22-Egyptian rigi d cystoscope to traverse the urethra and into the bladder with ease. The bladder was surveyed, and n o mucosal lesions, foreign bodies or stones were noted throughout. The ureteral orifices were orthot opic in location, and the left ureteral orifice was cannulated using the 5-Egyptian ureteral access cat heter. A retrograde pyelogram was then performed. Left retrograde pyelography: Using a 70:30 mixture of Omnipaque and saline, contrast was injected via the 5-Egyptian ureteral access catheter and did propagate up a moderately dilated ureter into a renal collecting system with modera te pelviectasis and caliectasis noted. As a result, the Sensor wire was passed via the ureteral acce ss catheter and did coil within the upper pole of the kidney. Over the Sensor wire, a dual-lumen cat heter was placed into the mid distal ureter until a point of obstruction was noted. A retrograde alina logram confirmed the appropriate intraureteral localization of the dual-lumen catheter and wires. As a result, after allowing a period of dilation, I then performed direct vision semi-rigid ureteroscop y using pressurized saline irrigation. At the point of obstruction encountered by the dual-lumen cat heter in the mid distal ureter, I could no longer pass the semi-rigid ureteroscope due to significant ureteral spasm in that location. Attempts to pass a Bentson guidewire and guide the scope up over i t using the indwelling wires as a railroad tracks would not allow passage of the scope and in fact wa s subtly beginning to cause some mucosal trauma. As a result, to avoid any further injury or trauma to the ureter, the scope was removed and I attempted to again pass the dual-lumen catheter. It again met the point of obstruction and so was quickly removed. I then back-loaded the 22-Egyptian rigid cys toscope over the indwelling safety wire and passed a 6-Egyptian by 24 cm double-J left ureteral stent i nto the collecting system with a coil observed fluoroscopically within the renal pelvis and 1 cystosc opically within the bladder. Once the stent had been placed with a coil observed within the bladder, the bladder was then decompressed of fluid and urine, and the patient was taken out of the lithotomy position. She was then awakened from general anesthesia, transferred to a stretcher and then to the recovery room in good condition. Complications: None. Discharge Disposition: She will also need to be rescheduled for definitive management and investigat ion of her left collecting system after a period of dilation of the ureter with the stent in place. Thus, she may be rescheduled for definitive ureteroscopy and laser lithotripsy with stent exchange on the left side within the next 3-4 weeks. YOLI/MONTRELL Voice ID: [id number] Report ID: [id number]
--- NOTE | 2020-06-04 13:52 | RAD REPORT ---
EXAM DESCRIPTION: RAD - Urethrocystogrphy Retrograde - 06/04/2020 11:10 am CLINICAL HISTORY: LEFT STENT PLACEMENT COMPARISON: PELVIS dated 06/01/2010 FINDINGS: There were 7 fluoroscopic kv images of the abdomen obtained during fluoroscopic assisted p lacement of a left ureteral stent. No suspicious or unexpected finding. Fluoro time was 17 seconds.
== END 2020-06-04 10:56 | disposition home or self-care (01) ==
LOC: OR 07:58
PROVIDERS: ATTEND Urology
PROC: 0T778DZ Dilation of Left Ureter with Intraluminal Device, Via Natural or Artificial Opening Endoscopic (ICD-10-PCS; principal; 2020-06-04 10:45)
DX: N20.1 Calculus of ureter (principal); N13.30 Unspecified hydronephrosis; N39.0 Urinary tract infection, site not specified; R10.9 Unspecified abdominal pain; Z20.822 Contact with and (suspected) exposure to COVID-19
CPT/HCPCS: 51610; 74450; 81025; 87086; 87088; J0290; J1100; J1170; J1580; J2250; J2405; J2704; J3010; J7120; U0003

== ENCOUNTER 2020-06-23 06:29 | Day surgery (SDC) | payer SELFPAY ==
[2020-06-23] MEDS ORDERED: Ringers Lactate 1,000 ML IV ONE (07:10)
[2020-06-23] MEDS ORDERED: FENTANYL CITR 100 MCG/2 ML ONE (07:32)
[2020-06-23] MEDS ORDERED: propofoL 200 MG/20 ML VIAL IV ONE (07:32)
[2020-06-23] MEDS ORDERED: dexAMETHasone 10 MG/ML VIAL ONE (07:33)
[2020-06-23] MEDS ORDERED: LIDOCAINE 1% MPF 5 ML VIAL ONE (07:33)
[2020-06-23] MEDS ORDERED: KETOROLAC 30 MG/ML INJ ONE (07:33)
[2020-06-23] MEDS ORDERED: ONDANSETRON 4 MG/2 ML VIAL ONE (07:33)
[2020-06-23] MEDS ORDERED: MIDAZOLAM HCL 2 MG/2 ML INJ ONE (07:33)
[2020-06-23] MEDS ORDERED: AMPICILLIN SODIUM 2 GM in NA CHLORIDE 0.9% 100 ML IVPB SCH (08:00)
[2020-06-23] MEDS ORDERED: Gentamicin Inj 140 MG in NA CHLORIDE 0.9% 100 ML IV SCH (08:00)
[2020-06-23] MEDS ORDERED: Mastisol Adhesive Liq ONE (08:18)
[2020-06-23] MEDS: MEPERIDINE HCL 25 MG/ML SYR ONE ×2 (08:19→08:25)
[2020-06-23] MEDS ORDERED: PHENAZOPYRIDINE 100MG TAB PO ONE (08:22)
[2020-06-23] MEDS ORDERED: Oxycodone HCl/Acetaminophen 1 TAB TAB PO PRN (08:22)
--- NOTE | 2020-06-23 08:26 | RAD REPORT ---
EXAM DESCRIPTION: RAD - Urethrocystogrphy Retrograde - 06/23/2020 8:12 am CLINICAL HISTORY: STENT COMPARISON: Urethrocystogrphy Retrograde dated 06/04/2020 FINDINGS: Total fluoro time: 0.12 minutes
[2020-06-23] MEDS: HYDROMORPHONE HCL 1 MG/ML INJ ONE ×2 (08:34→08:44)
[2020-06-23] MEDS ORDERED: PROMETHAZINE INJ 25 MG/ML AMP ONE (08:35)
[2020-06-23 09:31] VITALS: TEMP 97.6; O2SAT 100
[2020-06-23] MEDS ORDERED: HYDROCODONE/APAP 7.5/325 MG TAB ONE (09:34)
[2020-06-23 10:24] VITALS: BP 98/56
--- NOTE | 2020-06-23 11:03 | OP ---
Date of Procedure: 06/23/2020 Surgeon: MARY GONZALEZ Preoperative Diagnosis: Left proximal ureterolithiasis, 6 mm calculus. Postoperative Diagnosis: Left nephrolithiasis, 6 mm. Principle Procedures: 1.Cystoscopy. 2.Left ureteroscopy and laser lithotripsy. 3.Left ureteral stent placement. Indication For Procedure: Mrs. Alvarado presented to the Urology Clinic with pain associated with a proximal 6 mm left ureteral calculus. She had previously undergone cystoscopy and left ureteral sten t placement a couple of weeks back and presents today in followup for definitive management of the ur eteral calculus causing obstruction. Procedure In Detail: The patient was consented in the preoperative holding area before being transfe rred to the operative suite where general anesthesia was induced. She was given gentamicin 140 mg an d ampicillin 2 g IV antimicrobial prophylaxis. Pneumo boots were provided for DVT prophylaxis. She was placed in the lithotomy position, padded and secured to the table appropriately. The case was be gun using a 22-Montserratian rigid cystoscope to traverse the urethra and into the bladder with ease. The b ladder was decompressed of clear yellow urine, and the stent was noted to emanate from the left urete ral orifice. The stent was grasped using alligator graspers and delivered to the meatus. The proxim al end of the stent was still in the mid proximal ureter. Using a Sensor wire, I was able to pass it via the stent and observed it coil in the putative collecting system on the left side. I then remov ed the stent over the wire leaving it in place, and passed over the wire a dual-lumen catheter. I th en injected a 70:30 mixture of Omnipaque and saline via the second lumen of the dual-lumen catheter t o confirm the appropriate ureteral luminal location of the wire and catheter. Once the calices and p khanh of the kidney were adequately delineated, I then passed a Bentson guidewire via the second lume n of the dual-lumen catheter. I then removed the dual-lumen catheter and passed over the Bentson nisreen dewire, a flexible ureteroscope digital. I surveyed the calices of the kidney from the upper pole ca lices down into the mid pole and eventually into the lower pole calices where the 6 mm calculus which was previously in the proximal ureter had been displaced. Then utilizing a 271 nm laser fiber and p ower settings of 0.8 joules and 15 hertz, I quickly fragmented the stone into dust approximately the size of the tip of the laser fiber, certainly less than half a mm in diameter. Once sufficiently fra gmented, I surveyed the remainder of the calices of the kidney and the pelvis before surveying down t he proximal into the mid and distal ureter and out. I then removed the ureteroscope and back-loaded the cystoscope over the indwelling safety wire. I then passed a 6-Montserratian by 24 cm double-J left uret eral stent over the Sensor wire with a coil observed fluoroscopically in the upper pole of the kidney . An additional coil was observed cystoscopically within the bladder, and the stent was left on a st ring for ease of subsequent extraction. The bladder was then decompressed of fluid and urine, and th I used benzoin and Steri-Strips to secure the tethered portion of the string to her introitus. Th e patient was then taken out of the lithotomy position, awakened from general anesthesia, transferred to a stretcher, and then transferred to the recovery room in good condition. Complications: None. Discharge Disposition: She will follow up in the Urology Clinic with nurse practitionerOmid on or Monday for tethered ureteral stent removal. She should be provided a strainer to strain her urine for any stone fragments and collect those and bring them to the office for analysis. If t his is not her first stone event, she should be established for metabolic stone profile assessment wi two 24-hour urine collections and blood work approximately 1 month after the stent has been remove d. Subsequent followup may be established with me about a month later. If this is our first stone f orming event, she should be counseled extensively about the benefits of adequate hydration and citric acid containing foods that will decrease future stone forming events. WR/MODL Voice ID: [id number] Report ID: [id number]
== END 2020-06-23 09:54 | disposition home or self-care (01) ==
LOC: OR 06:29
PROVIDERS: ATTEND Urology
PROC: 0T778DZ Dilation of Left Ureter with Intraluminal Device, Via Natural or Artificial Opening Endoscopic (ICD-10-PCS; 2020-06-23)
PROC: 0TF78ZZ Fragmentation in Left Ureter, Via Natural or Artificial Opening Endoscopic (ICD-10-PCS; principal; 2020-06-23 07:30)
DX: N20.1 Calculus of ureter (principal); Z20.822 Contact with and (suspected) exposure to COVID-19
CPT/HCPCS: 51610; 74450; 81025; 87086; 87088; J0290; J1100; J1170; J1580; J2175; J2250; J2405; J2550; J2704; J3010; J7120; U0002

== ENCOUNTER 2021-01-01 09:01 | Emergency (ER) | payer SELFPAY ==
[2021-01-01 09:33] LABS: Urine Blood 2+ (Negative); Urine Glucose Negative (Negative); Urine Protein Negative (Negative); Urine Specific Gravity >=1.030 (1.005-1.030); Urine pH 5.5 (5.0-7.0)
[2021-01-01] MEDS ORDERED: ONDANSETRON 4 MG/2 ML VIAL ONE (10:46)
[2021-01-01] MEDS ORDERED: NA CHLORIDE 0.9% 1,000 ML ONE (10:46)
[2021-01-01] MEDS ORDERED: MORPHINE 4 MG/ML SYR ONE (10:46)
[2021-01-01] MEDS ORDERED: KETOROLAC 30 MG/ML INJ ONE (10:46)
[2021-01-01 10:51] LABS: ALT/SGPT 30 U/L (12-78); AST/SGOT 23 U/L (15-37); Albumin 3.7 g/dL (3.4-5.0); Alkaline Phosphatase 50 U/L (45-117); BUN Blood Urea Nitrogen 14 mg/dL (7-18); Bicarbonate 28 mmol/L (21-32); Bilirubin Direct 0.2 mg/dL (0-0.2); Bilirubin Total 0.5 mg/dL (0.2-1.0); Glucose Level 123 mg/dL (74-106); Lipase 77 U/L (73-393); NT PRO-BNP 227 pg/mL (<125); Potassium 4.2 mmol/L (3.5-5.1); Protein, Total 7.3 g/dL (6.4-8.2); Protime INR 0.91; Sodium Level 139 mmol/L (136-145); Troponin (Emerg Dept Use Only) < 0.02 ng/mL (0.0-0.045)
--- NOTE | 2021-01-01 10:52 | RAD REPORT ---
EXAM DESCRIPTION: CT - Stone Protocol - 01/01/2021 10:06 am CLINICAL HISTORY: PAIN COMPARISON: CT imaging May 02, 2020 TECHNIQUE: Axial 5 mm thick images were obtained without oral or IV contrast. The [id number] span s the entirety of the system including uppermost abdomen and lung bases. All CT scans are performed using dose optimization technique as appropriate and may include automated exposure control or mA/KV adjustment according to patient size. FINDINGS: No hydronephrosis is present and no obstructing ureteral calculi. No suspicious renal mass es. Isodense masses and pyelonephritis are not excluded on a stone protocol CT scan. No significant a drenal finding. No urinary bladder suspicious finding. No obstructing or nonobstructing renal or uret eral calculi seen. Patient has phleboliths along the pelvic floor that match the prior study. Uterus and ovaries are within normal limits for a noncontrast study. Imaged portions of the liver, spleen and pancreas show no suspicious findings on non-contrast imaging . No gallbladder or biliary tree abnormality identified. No suspicious bowel findings. The appendix is not clearly defined. No direct or indirect evidence for appendicitis. No hernia, mass or bulky lymphadenopathy noted. No free air, free fluid or inflammatory stranding. No significant bony abnormality. IMPRESSION: No hydronephrosis, obstructing calculus or other acute finding. Isodense masses and p yelonephritis are not excluded on a noncontrast study. Appendix is not clearly defined. No direct or indirect evidence for appendicitis. If there are clinic al concerns for appendicitis, follow-up exam could be performed following oral and IV contrast. A few small sub centimeter mesenteric lymph nodes are present.
[2021-01-01 11:09] LABS: Absolute Lymphocytes (CBC) 0.6 K/uL (0.7-4.9); Basophils % 0.5 % (0-1.3); Hematocrit 38.8 % (36.0-45.0); Lymphocytes % 4.2 % (15.3-44.8); MPV 8.4 fL (7.6-11.3); RBC Red Blood Cell Count 4.35 M/uL (3.86-4.86)
[2021-01-01] MEDS ORDERED: ASPIRIN 81 MG CHEWABLE TABLET ONE (11:10)
[2021-01-01] MEDS ORDERED: FAMOTIDINE 20 MG/2 ML VIAL IV ONE (11:10)
[2021-01-01 12:03] LABS: Blood Morphology Comment NOT SEEN (NOT SEEN); Platelet Estimate ADEQ; White Blood Cell Scan OK (OK)
--- NOTE | 2021-01-01 12:25 | RAD REPORT ---
EXAM DESCRIPTION: CT - Angio Aorta For Dissection - 01/01/2021 11:20 am CLINICAL HISTORY: CHEST PAIN COMPARISON: Noncontrast CT abdomen and pelvis January 01, CT stone protocol April 2020 TECHNIQUE: Dynamically enhanced 3 mm thick images of the chest, abdomen, and upper pelvis were obtai nidhi during administration of approximately 150mL Isovue 370 IV contrast. Sagittal and coronal reconst ruction images were generated using MIP and reviewed. Exam utilizes a protocol to evaluate entire cou rse of the aorta. All CT scans are performed using dose optimization technique as appropriate and may include automated exposure control or mA/KV adjustment according to patient size. FINDINGS: Aorta is normal in diameter with no dissection or other acute aortic findings. Reconstruct ion images show no significant findings. Pulmonary arteries are normal as well. No cardiomegaly, pericardial thickening or pericardial effusio n. Two small 3 mm size noncalcified nodules are seen in the left upper lobe (image [id number]). Lung fiel ds are otherwise clear. No pleural thickening, pleural effusion or pneumothorax. No abnormal mediastinal or hilar mass or lymphadenopathy seen. No chest wall mass or abnormal axillar y lymphadenopathy. Celiac, SMA and renal arteries show no suspicious findings. Solid abdominal viscera show no suspiciou s findings. No uterine or ovarian acute finding suspected. No mass or abnormal lymphadenopathy. No large or small bowel dilatation. The appendix remains difficult to distinguish from the terminal i leum. Right lower quadrant does not appear edematous. There are few small sub centimeter mesenteric l ymph nodes seen. No appendicolith is identifiable. No free air, free fluid or inflammatory stranding. No urinary bladder abnormality. IMPRESSION: Negative CT scan of the aorta. Two small 3 mm or less sized pulmonary nodules in the left upper lobe. There is no specific follow-up recommendation for nodules this size or in a patient this age. No acute abdominal or pelvic findings confirmed. Appendix remains difficult to clearly distinguish fr om terminal ileum. No fluid, stranding or indirect evidence for appendicitis.
--- NOTE | 2021-01-01 12:46 | RAD REPORT ---
EXAM DESCRIPTION: RAD - Chest Single View - 01/01/2021 10:02 am CLINICAL HISTORY: COUGH COMPARISON: Single-view chest August 2014 TECHNIQUE: AP portable chest image was obtained 01/01/2021 10:02 am . FINDINGS: Lungs are clear. Heart and vasculature are normal. No measurable pleural effusion and no p neumothorax. No acute bony abnormality seen. No acute aortic findings suspected. IMPRESSION: No acute cardiopulmonary process. No significant change from comparison study.
--- NOTE | 2021-01-01 12:55 | EDPHYS ---
Physician Documentation [facility] Name: Radha Alvarado Age: 40 yrs Sex: Female : 1980 Arrival Date: 01/01/2021 Time: 09:03 Bed 8 Private MD: KARINE Physician Brian Alfonso HPI: 01/01 10:21 This 40 yrs old Female presents to ER via Ambulatory with complaints of R ha Side Pain. 10:21 The patient or guardian reports chest pain that is located primarily in the substernal ha area, anterior chest wall, bilaterally. Onset: just prior to arrival, this morning. The patient presents with abdominal pain right lower quadrant. Onset: The symptoms/episode began/occurred yesterday. The pain radiates to right back. The symptoms radiate to chest. Associated signs and symptoms: Pertinent positives: chest pain. Modifying factors: The symptoms are alleviated by nothing, the symptoms are aggravated by breathing deeply. The chest pain is described as a heaviness, a pressure. Historical: - Allergies: 09:41 Sulfa (Sulfonamide Antibiotics); ss - PMHx: 09:41 Anxiety; Depression; Kidney stones; UTI; ss - Immunization history:: Client reports receiving the 2nd dose of the Covid vaccine. - Family history:: not pertinent. - Social history:: Smoking status: Patient denies any tobacco usage or history of. ROS: 10:21 Constitutional: Negative for fever, chills, and weight loss, Eyes: Negative for injury, ha pain, redness, and discharge, ENT: Negative for injury, pain, and discharge, Neck: Negative for injury, pain, and swelling, Respiratory: Negative for shortness of breath, cough, wheezing, and pleuritic chest pain, : Negative for injury, bleeding, discharge, and swelling, MS/Extremity: Negative for injury and deformity, Skin: Negative for injury, rash, and discoloration, Neuro: Negative for headache, weakness, numbness, tingling, and seizure, Psych: Negative for depression, anxiety, suicide ideation, homicidal ideation, and hallucinations, Allergy/Immunology: Negative for hives, rash, and allergies, Endocrine: Negative for neck swelling, polydipsia, polyuria, polyphagia, and marked weight changes, Hematologic/Lymphatic: Negative for swollen nodes, abnormal bleeding, and unusual bruising. 10:21 Cardiovascular: Positive for chest pain. 10:21 Abdomen/GI: Positive for abdominal cramps, of the right lower quadrant. Exam: 10:21 Constitutional: This is a well developed, well nourished patient who is awake, alert, ha and in no acute distress. Head/Face: Normocephalic, atraumatic. Eyes: Pupils equal round and reactive to light, extra-ocular motions intact. Lids and lashes normal. Conjunctiva and sclera are non-icteric and not injected. Cornea within normal limits. Periorbital areas with no swelling, redness, or edema. ENT: Nares patent. No nasal discharge, no septal abnormalities noted. Tympanic membranes are normal and external auditory canals are clear. Oropharynx with no redness, swelling, or masses, exudates, or evidence of obstruction, uvula midline. Mucous membranes moist. Neck: Trachea midline, no thyromegaly or masses palpated, and no cervical lymphadenopathy. Supple, full range of motion without nuchal rigidity, or vertebral point tenderness. No Meningismus. Chest/axilla: Normal chest wall appearance and motion. Nontender with no deformity. No lesions are appreciated. Cardiovascular: Regular rate and rhythm with a normal S1 and S2. No gallops, murmurs, or rubs. Normal PMI, no JVD. No pulse deficits. Respiratory: Lungs have equal breath sounds bilaterally, clear to auscultation and percussion. No rales, rhonchi or wheezes noted. No increased work of breathing, no retractions or nasal flaring. Back: No spinal tenderness. No costovertebral tenderness. Full range of motion. Female : Normal external genitalia. Skin: Warm, dry with normal turgor. Normal color with no rashes, no lesions, and no evidence of cellulitis. MS/ Extremity: Pulses equal, no cyanosis. Neurovascular intact. Full, normal range of motion. Neuro: Awake and alert, GCS 15, oriented to person, place, time, and situation. Cranial nerves II-XII grossly intact. Motor strength 5/5 in all extremities. Sensory grossly intact. Cerebellar exam normal. Normal gait. Psych: Awake, alert, with orientation to person, place and time. Behavior, mood, and affect are within normal limits. 10:21 Abdomen/GI: Inspection: distension, Bowel sounds: normal, Palpation: moderate abdominal tenderness, in the right lower quadrant, Liver: no appreciated palpable abnormalities, Hernia: not appreciated. 10:21 Musculoskeletal/extremity: DVT Exam: No signs of deep vein thrombosis. no pain, no swelling, no tenderness, negative Homans' sign noted on exam, no appreciated bluish discoloration, no erythema, no increased warmth. 10:52 ECG was reviewed by the Attending Physician. ha 12:57 ECG was reviewed by the Attending Physician. ha Vital Signs: 09:10 BP 124 / 72; Pulse 50; Resp 16; Temp 97.1(TE); Pulse Ox 100% on R/A; Weight 52.16 kg; ss Height 5 ft. 2 in. (157.48 cm); 12:03 BP 120 / 68; Pulse 58; Resp 14; Pulse Ox 98% on R/A; jt3 09:10 Body Mass Index 21.03 (52.16 kg, 157.48 cm) ss MDM: 09:19 Patient medically screened. ha 10:26 Differential diagnosis: abnormal EKG, acute myocardial infarction, coronary artery ha disease chest wall pain, cholecystitis, Cholelithiasis esophagitis, pancreatitis, pericarditis, pneumothorax, pulmonary embolus, stable angina, thoracic aortic disection, unstable angina, diverticulitis, pancreatitis, Peptic Ulcer Disease, Ureterolithiasis, urinary tract infection. HEART Score: History: Slightly Suspicious (0), ECG: Non specific repolarization disturbance / LBTB / PM (1), Age: < or = 45 years (0). The patient was given aspirin in the Emergency Department. The patient's deep vein thrombosis risk score was calculated as follows: Total Score: 0. This patient was found to be at low risk for a deep vein thrombosis by using the Well's assessment criteria. The patient's pulmonary embolism risk score was calculated as follows: Total Score: 0-2 points. This patient was found to be at low risk for a pulmonary embolism by using the Well's assessment criteria. ELMER Risk Score: TOTAL SCORE = 0. Data reviewed: vital signs, nurses notes, lab test result(s), EKG, radiologic studies, CT scan, plain films. 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 Test interpretation: by ED physician or midlevel provider: ECG, plain radiologic studies. Counseling: I had a detailed discussion with the patient and/or guardian regarding: the historical points, exam findings, and any diagnostic results supporting the discharge/admit diagnosis, radiology results. 01/01 09:33 Order name: Urine Dipstick-Ancillary; Complete Time: 11:47 EDMS 01/01 09:33 Order name: Urine --Ancillary (enter results); Complete Time: 11:47 eb 01/01 09:36 Order name: Basic Metabolic Panel; Complete Time: 11:47 [facility] 01/01 09:36 Order name: CBC with Diff; Complete Time: 12:45 [facility] 01/01 09:36 Order name: LFT's; Complete Time: 11:47 [facility] 01/01 09:36 Order name: Magnesium; Complete Time: 11:47 [facility] 01/01 09:36 Order name: NT PRO-BNP; Complete Time: 11:47 [facility] 01/01 09:36 Order name: PT-INR; Complete Time: 11:47 [facility] 01/01 09:36 Order name: Troponin (emerg Dept Use Only); Complete Time: 11:47 [facility] 01/01 09:36 Order name: Lipase; Complete Time: 11:47 [facility] 01/01 10:02 Order name: D-Dimer; Complete Time: 11:47 [facility] 01/01 11:12 Order name: CBC Smear Scan; Complete Time: 12:45 EDAK 01/01 11:48 Order name: Troponin (emerg Dept Use Only): 1230 PM [facility] 01/01 09:36 Order name: XRAY Chest (1 view); Complete Time: 12:49 [facility] 01/01 09:36 Order name: EKG; Complete Time: 09:37 [facility] 01/01 09:36 Order name: Cardiac monitoring; Complete Time: 10:29 [facility] 01/01 09:36 Order name: EKG - Nurse/Tech; Complete Time: 09:50 [facility] 01/01 09:36 Order name: IV Saline Lock; Complete Time: 10:28 [facility] 01/01 09:36 Order name: Labs collected and sent; Complete Time: 10:29 [facility] 01/01 09:36 Order name: CT Stone Protocol; Complete Time: 11:47 [facility] 01/01 10:20 Order name: CT Aorta for Dissection; Complete Time: 12:45 [facility] 01/01 10:28 Order name: EKG; Complete Time: 10:29 [facility] 01/01 11:49 Order name: Troponin (Emerg Dept Use Only); Complete Time: 12:45 EDMS 01/01 09:36 Order name: O2 Per Protocol; Complete Time: 10:29 [facility] 01/01 09:36 Order name: O2 Sat Monitoring; Complete Time: 10:29 [facility] 01/01 09:36 Order name: Urine Dipstick-Ancillary (obtain specimen); Complete Time: 10:44 [facility] 01/01 09:36 Order name: Urine Test (obtain specimen); Complete Time: 10:44 [facility] 01/01 10:28 Order name: EKG - Nurse/Tech; Complete Time: 10:29 [facility] EC:52 Rate is 49 beats/min. Rhythm is regular. QRS [place] is Normal. WA interval is normal. QRS ha interval is normal. QT interval is normal. No Q waves. T waves are Normal. No ST changes noted. Clinical impression: Sinus bradycardia. Interpreted by me. Reviewed by me. 12:57 Rate is 48 beats/min. Rhythm is regular. QRS [place] is Normal. WA interval is normal. QRS ha interval is normal. QT interval is prolonged at 578 msec. No Q waves. T waves are Normal. No ST changes noted. Clinical impression: Sinus bradycardia and No evidence of ischemia. Interpreted by me. Reviewed by me. Administered Medications: 10:32 Drug: morphine 4 mg Route: IVP; Site: left antecubital; jt3 12:03 Follow up: Response: Pain is decreased jt3 10:32 Drug: Zofran (Ondansetron) 4 mg Route: IVP; Site: left antecubital; jt3 12:02 Follow up: Response: Nausea is decreased jt3 10:33 Drug: NS 0.9% 1000 ml Route: IV; Rate: 1 bolus; Site: left antecubital; jt3 10:33 Drug: Ketorolac 30 mg Route: IVP; Site: left antecubital; jt3 10:56 Drug: Aspirin Chewable Tablet 162 mg Route: PO; jt3 12:02 Follow up: Response: No adverse reaction jt3 10:56 Drug: Pepcid (famotidine) 20 mg Route: IVP; Site: left antecubital; jt3 12:02 Follow up: Response: No adverse reaction jt3 Disposition Summary: 01/01/21 12:55 Discharge Ordered Location: Home ha Problem: new ha Symptoms: have improved ha Condition: Stable ha Diagnosis - Abdominal tenderness ha - Elevated white blood cell count ha - Chest pain on breathing ha Followup: ha - With: Private Physician - When: 2 - 3 days - Reason: Recheck today's complaints, Continuance of care, Re-evaluation by your physician Followup: ha - With: Ren Jacobo MD - When: 2 - 3 days - Reason: Recheck today's complaints, Re-evaluation by your physician Discharge Instructions: - Discharge Summary Sheet ha - Abdominal Pain, Adult ha - Nonspecific Chest Pain, Adult ha - Chest Wall Pain ha - Chest Wall Pain, [id number] ha - Abdominal Pain, Adult, [id number] ha - Aspirin and Your Heart ha - Pleurodynia [facility] Forms: - Medication Reconciliation Form [facility] - Thank You Letter [facility] - Antibiotic Education [facility] - Prescription Opioid Use [facility] Prescriptions: - Augmentin 500-125 mg Oral Tablet - take 1 tablet by ORAL route every 12 hours for 5 days; 10 tablet; Refills: 0, [facility] Product Selection Permitted - Pepcid 20 mg Oral Tablet - take 1 tablet by ORAL route every 12 hours for 10 days; 20 tablet; Refills: 0, [facility] Product Selection Permitted - dicyclomine 20 mg Oral Tablet - take 1 tablet by ORAL route 4 times per day; 28 tablet; Refills: 0, Product [facility] Selection Permitted Signatures: Dispatcher [employer] Brian Goel MD MD cha Smirch, Shelby RN RN ss Kemar Madden RN RN jt3
--- NOTE | 2021-01-01 12:55 | ER ---
Nurse's Notes [facility] Name: Radha Alvarado Age: 40 yrs Sex: Female : 1980 Arrival Date: 01/01/2021 Time: 09:03 Bed 8 Private MD: Diagnosis: Abdominal tenderness;Elevated white blood cell count;Chest pain on breathing Presentation: 01/01 09:10 Chief complaint: Patient states: R flank pain, chest pain with deep breathing and N/V ss that began at 2 am. Coronavirus screen: Client denies travel out of the [place] in the last 14 days. Ebola Screen: Patient denies exposure to infectious person. Patient denies travel to an Ebola-affected area in the 21 days before illness onset. Initial Sepsis Screen: Does the patient meet any 2 criteria? No. Patient's initial sepsis screen is negative. Does the patient have a suspected source of infection? No. Patient's initial sepsis screen is negative. Risk Assessment: Do you want to hurt yourself or someone else? Patient reports no desire to harm self or others. Onset of symptoms was January 01, 2021. 09:10 Method Of Arrival: Ambulatory ss 09:10 Acuity: TITUS 3 ss Historical: - Allergies: 09:41 Sulfa (Sulfonamide Antibiotics); ss - PMHx: 09:41 Anxiety; Depression; Kidney stones; UTI; ss - Immunization history:: Client reports receiving the 2nd dose of the Covid vaccine. - Family history:: not pertinent. - Social history:: Smoking status: Patient denies any tobacco usage or history of. Screenin:00 Abuse screen: Denies threats or abuse. Denies injuries from another. Nutritional jt3 screening: No deficits noted. Tuberculosis screening: No symptoms or risk factors identified. Fall Risk None identified. Assessment: 10:00 Reassessment: No changes from previously documented assessment. jt3 Vital Signs: 09:10 BP 124 / 72; Pulse 50; Resp 16; Temp 97.1(TE); Pulse Ox 100% on R/A; Weight 52.16 kg; ss Height 5 ft. 2 in. (157.48 cm); 12:03 BP 120 / 68; Pulse 58; Resp 14; Pulse Ox 98% on R/A; jt3 09:10 Body Mass Index 21.03 (52.16 kg, 157.48 cm) ED Course: 09:03 Patient arrived in ED. ds1 09:12 Brian Alfonso MD is Attending Physician. ha 09:41 Triage completed. ss 09:41 Arm band placed on right wrist. ss 10:00 Patient has correct armband on for positive identification. Bed in low position. Call jt3 light in reach. Side rails up X2. 10:00 No provider procedures requiring assistance completed. Inserted saline lock: 22 gauge jt3 in left antecubital area, using aseptic technique. 10:03 XRAY Chest (1 view) In Process Unspecified. EDMS 10:06 CT Stone Protocol In Process Unspecified. EDMS 10:18 Kemar Madden, AICHA is Primary Nurse. jt3 11:19 CT Aorta for Dissection In Process Unspecified. EDMS 12:54 Ren Jacobo MD is Referral Physician. ha 13:34 Troponin (emerg Dept Use Only): 1230 PM Sent. jt3 Administered Medications: 10:32 Drug: morphine 4 mg Route: IVP; Site: left antecubital; jt3 12:03 Follow up: Response: Pain is decreased jt3 10:32 Drug: Zofran (Ondansetron) 4 mg Route: IVP; Site: left antecubital; jt3 12:02 Follow up: Response: Nausea is decreased jt3 10:33 Drug: NS 0.9% 1000 ml Route: IV; Rate: 1 bolus; Site: left antecubital; jt3 10:33 Drug: Ketorolac 30 mg Route: IVP; Site: left antecubital; jt3 10:56 Drug: Aspirin Chewable Tablet 162 mg Route: PO; jt3 12:02 Follow up: Response: No adverse reaction jt3 10:56 Drug: Pepcid (famotidine) 20 mg Route: IVP; Site: left antecubital; jt3 12:02 Follow up: Response: No adverse reaction jt3 Outcome: 12:55 Discharge ordered by . ha 13:36 Discharged to home jt3 13:36 Discharged to home ambulatory, with family. 13:36 Condition: stable 13:36 Discharge instructions given to patient, family. 13:37 Patient left the ED. jt3 Signatures: Dispatcher [employer] EDAR Brian Alfonso MD MD cha Sanford, Demi ds1 Shira Napoles RN RN ss Kemar Madden RN RN jt3 Corrections: (The following items were deleted from the chart) 10:34 10:32 Pepcid (famotidine) 20 mg IVP in left antecubital jt3 jt3 10:34 10:32 Aspirin Chewable Tablet 162 mg PO jt3 jt3
[2021-01-01 13:54] VITALS: TEMP 97.1
[2021-01-01 13:55] VITALS: BP 120/68; O2SAT 98
== END 2021-01-01 13:37 | disposition home or self-care (01) ==
LOC: ER 09:01
DX: R07.9 Chest pain, unspecified (principal); D72.829 Elevated white blood cell count, unspecified; R10.813 Right lower quadrant abdominal tenderness; Z88.2 Allergy status to sulfonamides
CPT/HCPCS: 36415; 71045; 71275; 74175; 74176; 76377; 80048; 80076; 81003; 81025; 83690; 83735; 83880; 84484; 85025; 85379; 85610; 93005; 96374; 96375; 99284; J2405; J7030; Q9967

== ENCOUNTER 2021-01-15 20:57 | Emergency (ER) | payer SELFPAY ==
--- NOTE | 2021-01-15 23:23 | EDPHYS ---
Physician Documentation [facility] Name: Radha Alvarado Age: 40 yrs Sex: Female : 1980 Arrival Date: 01/15/2021 Time: 20:58 Bed 27 Private MD: ED Physician Corby Real HPI: 01/15 21:36 This 40 yrs old Female presents to ER via Ambulatory with complaints of rn Shoulder Pain, hip pain. 21:36 Details of fall: The patient fell from an upright position. Onset: The symptoms/episode rn began/occurred 6 day(s) ago. Associated injuries: The patient sustained Right shoulder, right hip. Severity of symptoms: At their worst the symptoms were moderate, in the emergency department the symptoms are unchanged. The patient has not experienced similar symptoms in the past. The patient has not recently seen a physician. Patient states was knocked down by a large dog, landed on her right side on concrete, injured right shoulder and right hip, hip worse than shoulder. Patient ambulatory and has full range of motion of the leg and hip as well as the arm and shoulder but pain has not improved and feels pain when moving both joints and some clicking of the right hip. Does not take any blood thinners. No other injuries or pain. 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 - Social history:: Smoking status: Reported history of juuling and/or vaping. - Family history:: not pertinent. - Hospitalizations: : No recent hospitalization is reported. ROS: 21:36 Constitutional: Negative for fever, chills, and weight loss, Eyes: Negative for injury, rn pain, redness, and discharge, Neck: Negative for injury, pain, and swelling, Cardiovascular: Negative for chest pain, palpitations, and edema, Respiratory: Negative for shortness of breath, cough, wheezing, and pleuritic chest pain, Abdomen/GI: Negative for abdominal pain, nausea, vomiting, diarrhea, and constipation, Back: Negative for injury and pain, MS/Extremity: Positive for injury and pain to right shoulder and right hip Skin: Positive bruising to right lateral thigh and hip Neuro: Negative for headache, weakness, numbness, tingling, and seizure. Exam: 21:36 Constitutional: This is a well developed, well nourished patient who is awake, alert, rn and in no acute distress. Head/Face: Normocephalic, atraumatic. Eyes: Periorbital areas with no swelling, redness, or edema. Cardiovascular: Regular rate and rhythm. No pulse deficits. Respiratory: Speaking full sentences, unlabored. Skin: Warm, dry, moderate size ecchymosis and small subcutaneous hematoma to the right lateral proximal thigh. No bony tenderness MS/ Extremity: Pulses equal, no cyanosis. Neurovascular intact. Full, normal range of motion. Mild tenderness and painful rotational movement of the right shoulder, able to reach opposite shoulder without difficulty, does not appear dislocated. Full range of motion right hip with mild tenderness lateral proximal femur. No open wounds Neuro: Awake and alert, GCS 15 Vital Signs: 21:05 BP 117 / 84; Pulse 78; Resp 16; Temp 98.9; Pulse Ox 100% ; Weight 53.98 kg; Height 5 vg1 ft. 2 in. (157.48 cm); Pain 8/10; 22:00 BP 108 / 71; Pulse 62; Resp 16; Pulse Ox 100% on R/A; fu 22:30 BP 107 / 71; Pulse 63; Resp 18; Pulse Ox 99% on R/A; fu 23:15 BP 98 / 60; Pulse 58; Resp 16; Pulse Ox 97% on R/A; fu 21:05 Body Mass Index 21.77 (53.98 kg, 157.48 cm) vg1 MDM: 21:03 Patient medically screened. rn 23:21 Differential diagnosis: contusion, fracture, sprain, strain. Data reviewed: vital rn signs, nurses notes, radiologic studies, plain films, and as a result, I will discharge patient. Test interpretation: by ED physician or midlevel provider: plain radiologic studies, X-ray right shoulder and hip negative for acute fracture or dislocation. Counseling: I had a detailed discussion with the patient and/or guardian regarding: the historical points, exam findings, and any diagnostic results supporting the discharge/admit diagnosis, radiology results, the need for outpatient follow up, to return to the emergency department if symptoms worsen or persist or if there are any questions or concerns that arise at home. Special discussion: I discussed with the patient/guardian in detail that at this point there is no indication for admission to the hospital. It is understood, however, that if the symptoms persist or worsen the patient needs to return immediately for re-evaluation. 01/15 21:28 Order name: XRAY Shoulder RIGHT 2 view rn 01/15 21:28 Order name: XRAY Pelvis rn 01/15 21:28 Order name: XRAY Femur RIGHT rn Administered Medications: No medications were administered Disposition Summary: 01/15/21 23:22 Discharge Ordered Location: Home rn Problem: new rn Symptoms: have improved rn Condition: Stable rn Diagnosis - Contusion of right hip rn - Other sprain of right shoulder joint rn - Traumatic hematoma right thigh rn - Traumatic hematoma of right thigh rn Followup: rn - With: Private Physician - When: As needed - Reason: Recheck today's complaints, Re-evaluation by your physician Discharge Instructions: - Discharge Summary Sheet rn - Contusion rn - Hematoma rn - Shoulder Sprain rn Forms: - Medication Reconciliation Form rn - Thank You Letter rn - Antibiotic manager rn case - Prescription Opioid Use rn Signatures: Dispatcher [employer] EDCorby Peng MD MD rn Garcia, Victoria, RN RN vg1 Corrections: (The following items were deleted from the chart) 21:12 21:12 PSHx: None; vg1 vg1
--- NOTE | 2021-01-15 23:23 | ER ---
Nurse's Notes [facility] Name: Radha Alvarado Age: 40 yrs Sex: Female : 1980 Arrival Date: 01/15/2021 Time: 20:58 Bed 27 Private MD: Diagnosis: Contusion of right hip;Other sprain of right shoulder joint;Traumatic hematoma right thigh;Traumatic hematoma of right thigh Presentation: 01/15 21:05 Chief complaint: Patient states: On Monday01/09/21, pt was tripped by dog and fell vg1 forward, states not too sure how fell exactly but remembers picking self up from left side and remembers checking left side of face for any bleeding. States has a bruise to Right thigh. Also states MARCO ANTONIO shoulder pain, Right wrist pain and had some numbness/tingling to fingers but has since subsided. Coronavirus screen: Vaccine status: Patient reports being unvaccinated. Client denies travel out of the [place] in the last 14 days. Ebola Screen: Patient negative for fever greater than or equal to 101.5 degrees Fahrenheit, and additional compatible Ebola Virus Disease symptoms. Initial Sepsis Screen: Does the patient meet any 2 criteria? No. Patient's initial sepsis screen is negative. Does the patient have a suspected source of infection? No. Patient's initial sepsis screen is negative. Risk Assessment: Do you want to hurt yourself or someone else? Patient reports no desire to harm self or others. Onset of symptoms was January 09, 2021. 21:05 Method Of Arrival: Ambulatory vg1 21:05 Acuity: TITUS 4 vg1 Triage Assessment: 21:12 General: Appears in no apparent distress. uncomfortable, Behavior is calm, cooperative. vg1 Pain: Complains of pain in MARCO ANTONIO shoulder, Right wrist Pain currently is 8 out of 10 on a pain scale. Pain began 01/09/21. Neuro: Level of Consciousness is awake, alert, obeys commands, Oriented to person, place, time, situation. Musculoskeletal: Circulation, motion, and sensation intact. 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 - Social history:: Smoking status: Reported history of juuling and/or vaping. - Family history:: not pertinent. - Hospitalizations: : No recent hospitalization is reported. Screenin:31 Abuse screen: Denies threats or abuse. Nutritional screening: No deficits noted. fu Tuberculosis screening: No symptoms or risk factors identified. Fall Risk None identified. Assessment: 21:27 General: Appears uncomfortable, Behavior is calm, cooperative, appropriate for age, fu Denies fever, feeling ill, fatigue, chills. Pain: Complains of pain in right shoulder Pain currently is 6 out of 10 on a pain scale. Pain began 6 days ago. Pain: Complains of pain in right hip and back Pain currently is 8 out of 10 on a pain scale. Pain began 6 days ago. Neuro: Level of Consciousness is awake, alert, obeys commands, Oriented to person, place, time, situation, Moves all extremities. Gait is unsteady, Speech is normal, Facial symmetry appears normal. Cardiovascular: No deficits noted. Respiratory: No deficits noted. GI: No signs and/or symptoms were reported involving the gastrointestinal system. : No signs and/or symptoms were reported regarding the genitourinary system. Derm: Bruising that is on right hip. Injury Description: Bruise sustained to right hip. 22:35 Reassessment: Patient appears in no apparent distress at this time. Patient and/or fu family updated on plan of care and expected duration. Pain level reassessed. Patient is alert, oriented x 3, equal unlabored respirations, skin warm/dry/pink. Vital Signs: 21:05 BP 117 / 84; Pulse 78; Resp 16; Temp 98.9; Pulse Ox 100% ; Weight 53.98 kg; Height 5 vg1 ft. 2 in. (157.48 cm); Pain 8/10; 22:00 BP 108 / 71; Pulse 62; Resp 16; Pulse Ox 100% on R/A; fu 22:30 BP 107 / 71; Pulse 63; Resp 18; Pulse Ox 99% on R/A; fu 23:15 BP 98 / 60; Pulse 58; Resp 16; Pulse Ox 97% on R/A; fu 21:05 Body Mass Index 21.77 (53.98 kg, 157.48 cm) vg1 ED Course: 20:58 Patient arrived in ED. wm 21:02 Corby Real MD is Attending Physician. rn 21:11 Triage completed. vg1 21:12 Arm band placed on. vg1 21:17 En Menchaca, RN is Primary Nurse. fu 21:31 Patient has correct armband on for positive identification. Bed in low position. Call fu light in reach. Pulse ox on. NIBP on. 21:31 No provider procedures requiring assistance completed. fu 22:06 XRAY Shoulder RIGHT 2 view In Process Unspecified. EDMS 22:06 XRAY Pelvis In Process Unspecified. EDMS 22:06 XRAY Femur RIGHT In Process Unspecified. EDMS 23:33 Patient did not have IV access during this emergency room visit. fu Administered Medications: No medications were administered Outcome: 23:22 Discharge ordered by MD. rn 23:44 Discharged to home ambulatory. fu 23:44 Condition: stable 23:44 Discharge instructions given to family. Patient refuse to sign discharge papers 23:49 Patient left the ED. fu Signatures: Dispatcher [employer] EDMS Corby Real MD MD rn Umadhay, Felix, RN RN Mirtha Burrows RN RN [facility] ([place], [place]) Mckayla De La Rosa Corrections: (The following items were deleted from the chart) 21:12 21:12 PSHx: None; vg1 vg1
[2021-01-16 00:28] VITALS: TEMP 98.9
[2021-01-16 00:32] VITALS: BP 98/60; O2SAT 97
--- NOTE | 2021-01-16 22:12 | RAD REPORT ---
EXAM DESCRIPTION: RAD - Shoulder Right 2 View - 01/15/2021 10:06 pm CLINICAL HISTORY: 40-year-old female status post fall one week ago with pain. TECHNIQUE: Limited two views of the RIGHT shoulder were obtained in AP internal/external rotation. COMPARISON: None. FINDINGS: There is no fracture or dislocation. The joint spaces are preserved. No soft tissue abnorm alities are seen. IMPRESSION: No acute radiographic abnormality. Electronically signed by: Nadia Islas MD 01/15/2021 11:00 PM CDT Due to temporary technical issues with the PACS/Fluency reporting system, reports are being signed by the in house radiologists without review as a courtesy to insure prompt reporting. The interpreting radiologist is fully responsible for the content of the report.
--- NOTE | 2021-01-16 22:13 | RAD REPORT ---
EXAM DESCRIPTION: RAD - Pelvis - 01/15/2021 10:06 pm CLINICAL HISTORY: 40-year-old female status post blunt trauma. COMPARISON: None. TECHNIQUE: Single frontal view of the pelvis and four views of the RIGHT femur were obtained in AP a nd lateral projection. FINDINGS: There is no fracture or dislocation. The joint spaces are preserved. No soft tissue abnorm alities are seen. Mild degenerative changes of the knee. IMPRESSION: No acute radiographic abnormality. Electronically signed by: Nadia Islas MD 01/15/2021 11:02 PM CDT Due to temporary technical issues with the PACS/Fluency reporting system, reports are being signed by the in house radiologists without review as a courtesy to insure prompt reporting. The interpreting radiologist is fully responsible for the content of the report.
--- NOTE | 2021-01-16 22:16 | RAD REPORT ---
EXAM DESCRIPTION: RAD - Femur Right - 01/15/2021 10:06 pm CLINICAL HISTORY: 40-year-old female status post blunt trauma. COMPARISON: None. TECHNIQUE: Single frontal view of the pelvis and four views of the RIGHT femur were obtained in AP a nd lateral projection. FINDINGS: There is no fracture or dislocation. The joint spaces are preserved. No soft tissue abnorm alities are seen. Mild degenerative changes of the knee. IMPRESSION: No acute radiographic abnormality. Electronically signed by: Nadia Islas MD 01/15/2021 11:02 PM CDT Due to temporary technical issues with the PACS/Fluency reporting system, reports are being signed by the in house radiologists without review as a courtesy to insure prompt reporting. The interpreting radiologist is fully responsible for the content of the report.
--- OUTSIDE RECORDS SUMMARY | 2021-01-23 13:57 | XMS REPORT | Continuity of Care Document ---
:1980 Author Organization [facility] t Address [address] [place] [address] Care Team Providers Name Role Phone LISY VILLAGOMEZ Primary Care Physician Unavailable BOBBY Attending Clinician Unavailable Bobby DO Attending Clinician Doctor Unassigned, Name Attending Clinician Unavailable SHIVANI Attending Clinician Unavailable Payers Payer Name Policy Type Policy Number Effective Date Expiration Date S ource [place] [id number] 2015 00:00:00 Problems Condition Condition Condition Status Onset Resolution Last Treating Co mments Source Name Details Category Date Date Treatment Clinician Date Supervisio Supervisio Disease Active 2014-03 U nivers n of n of 1-15 [place] of elderly of elderly Br anch multigravi multigravi da da History of History of Disease Active 2014-03 U nivers 1-15 [place], [place] 00 Med[place] Branch Generalize Generalize Disease Active U nivers d anxiety d anxiety 7-24 ity of disorder disorder 00:00: [place] 00 Medical Branch Allergies, Adverse Reactions, Alerts Allergy Allergy Status Severity Reaction(s) Onset Inactive Treating Comm ents Source Name Type Date Date Clinician SULFA Drug Active Hives Univers (SULFONA Class 7-24 ity of MIDE 00:00: [place] ANTIBIOT 00 Medical ICS) Branch Sulfa Propensi Active Hives Univers (Sulfona ty to 7-24 ity of mide adverse 00:00: [place] Antibiot reaction 00 Medica l ics) s Branch Social History Social Habit Start Date Stop Date Quantity Comments Source Exposure to Not sure University of SARS-CoV-2 [facility] (event) Branch Alcohol intake 2018-08-12 2018-08-12 0 /d University of 00:00:00 00:00:00 [facility] Tobacco use and 2013-10-03 2013-10-03 Current user Univers ity of exposure 00:00:00 00:00:00 [facility] Tobacco Comment 2013-10-03 2013-10-03 e-cigarettes Univers ity of 00:00:00 00:00:00 [facility] History of 2013-08-03 Cigarette Smoker Universi ty of tobacco use 00:00:00 [facility] Sex Assigned At [birth year] Universit y of 00:00:00 00:00:00 [facility] Smoking Status Start Date Stop Date Source Former smoker 2013-10-03 00:00:00 2013-10-03 00:00:00 Universi ty of [facility] Medications Ordered Filled Start Stop Current Ordering Indication Dosage Frequency Signature Comments Components Source Medication Medication Date Date Medication? Clinician (SIG) Name Name 2014-03 Yes [id number] 1{tbl} Take 1 Tab Univers multivitami 1-12 by mouth ity of n ( [place] V[place] 00 [facility] tablet Branch 2014-03 Yes [id number] 1{tbl} Take 1 Tab Univers multivitami 1-12 by mouth ity of n ( [place] V[place] 00 [facility] Immunizations Ordered Filled Immunization Date Status Comments Sourc e Immunization Name Name Influenza Virus 2015-01-22 Completed Universit y of Vaccine Quad IM 3+ 00:00:00 [facility] Branch Influenza Virus 2015-01-22 Completed Universit y of Vaccine Quad IM 3+ 00:00:00 [facility] Branch Td 2011-10-04 Completed University 00:00:00 [facility] Td 2011-10-04 Completed [facility] 00:00:00 [facility] Vital Signs Vital Name Observation Time Observation Value Comments Source Systolic blood 2021-01-16 00:55:00 128 mm[Hg] Univer sity of pressure [facility] Diastolic blood 2021-01-16 00:55:00 88 mm[Hg] Unive rsity of pressure [facility] Heart rate 2021-01-16 00:55:00 86 /min [facility] Body temperature 2021-01-16 00:55:00 36.94 Kelsey [facility] Respiratory rate 2021-01-16 00:55:00 18 /min [facility] Body height 2021-01-16 00:55:00 157.5 cm [facility] Body weight 2021-01-16 00:55:00 53.978 kg [facility] BMI 2021-01-16 00:55:00 21.77 kg/m2 [facility] Oxygen saturation in 2021-01-16 00:55:00 99 /min [facility] Arterial blood by [facility] Pulse oximetry [place] Procedures Procedure Date / Time Performed Performing Clinician [facility] e CONSENT/REFUSAL FOR 2021-01-16 00:48:25 Doctor Unassdevendra, No [facility] DIAGNOSIS AND Name [facility] TREATMENT NOTICE OF PRIVACY 2021-01-16 00:47:51 Doctor Unassigned, No [facility] PRACTICES Name [facility] Encounters Start End Encounter Admission Attending Care Care Encounter Source Date/Time Date/Time Type Type Clinicians Facility Department ID 2021-01-15 2021-01-15 Emergency X SINGER [facility] ERT [id number] Univers 19:59:00 20:38:00 CHRIS louie [facility] [place] [facility] 2021-01-15 2021-01-15 Emergency Singer [facility] [id number] Univers 19:59:00 20:38:00 Chris HERNANDEZ [id number] i ty [facility] [id number] [facility] [id number] [facility] 084 Branch 2021-01-15 2021-01-15 Orders Doctor PULLIAM [id number] Univers 00:00:00 00:00:00 Only UnassignedSILVIA [id number] ity of [place] [facility] [id number] Lit [id number] [facility] 009 Branch 2020-01-30 2020-01-30 Outpatient R SHIVANI [facility] [id number] Univers 18:20:00 18:20:00 SHASHA palma [facility] [place] [facility] Results This patient has no known results.
== END 2021-01-15 23:49 | disposition home or self-care (01) ==
LOC: ER 20:57
DX: S43.491A Other sprain of right shoulder joint, initial encounter (principal); S70.11XA Contusion of right thigh, initial encounter; W54.1XXA Struck by dog, initial encounter; F41.8 Other specified anxiety disorders; Z88.2 Allergy status to sulfonamides
CPT/HCPCS: 72170; 99283

== ENCOUNTER 2021-03-22 17:15 | Emergency (ER) | payer SELFPAY ==
--- OUTSIDE RECORDS SUMMARY | 2021-03-22 17:27 | XMS REPORT | Continuity of Care Document ---
:1980 Author Organization [facility] t Address [address] [place] [address] Care Team Providers Name Role Phone HERNANDOCHETNALISY Primary Care Physician Unavailable DE LEON Attending Clinician Unavailable Singer MURDOCK Attending Clinician Doctor Unassigned, Name Attending Clinician Unavailable SHIVANI Attending Clinician Unavailable Payers Payer Name Policy Type Policy Number Effective Date Expiration Date S ource [place] [id number] 2015 00:00:00 Problems Condition Condition Condition Status Onset Resolution Last Treating Co mments Source Name Details Category Date Date Treatment Clinician Date Supervisio Supervisio Disease Active 2014-03 U nivers n of n of 1-15 ity of high-risk high-risk [place]:00[place] Med[place] of elderly of [...] to 7-24 ity of mide adverse 00:00: [place] Antibiot reaction 00 Medica l ics) s Branch Social History Social Habit Start Date Stop Date Quantity Comments Source Exposure to Not sure University of SARS-CoV-2 [facility] (event) Branch Alcohol intake 2018-08-12 2018-08-12 0 /d University of 00:00:00 00:00:00 [facility] Tobacco use and 2013-10-03 2013-10-03 Current user Univers ity of exposure 00:00:00 00:00:00 [facility] Tobacco Comment 2013-10-03 2013-10-03 e-cigarettes Univers ity of 00:00:00 00:00:00 [facility] History of 2013-08-03 Cigarette Smoker Universi ty of tobacco use 00:00:00 [facility] Sex Assigned At [birth year] Universit y of 00:00:00 00:00:00 [facility] Smoking Status Start Date Stop Date Source Former smoker 2013-10-03 00:00:00 2013-10-03 00:00:00 Universi ty of [facility] Medications Ordered Filled Start Stop Current Ordering Indication Dosage Frequency Signature Comments Components Source Medication Medication Date Date Medication? Clinician (SIG) Name Name 2014-03 Yes [id number] 1{tbl} Take 1 Tab Univers multivitami 1-12 by mouth [place] of [place] ( [place] V[place] [facility] tablet [place] 2014-03 Yes [id number] 1{tbl} Take 1 Tab Univers multivitami 1-12 by mouth ity of n ( [place] V[place] 00 [facility] Immunizations Ordered Filled Immunization Date Status Comments Sourc e Immunization Name Name Influenza Virus 2015-01-22 Completed Universit y of Vaccine Quad IM 3+ 00:00:00 [facility] Branch Influenza Virus 2015-01-22 Completed Universit y of Vaccine Quad IM 3+ 00:00:00 [facility] Branch Td 2011-10-04 Completed University 00:00:00 [facility] Td 2011-10-04 Completed University 00:00:00 [facility] Vital Signs Vital Name Observation Time Observation Value Comments Source Systolic blood 2021-01-16 00:55:00 128 mm[Hg] Univer sity of pressure [facility] Diastolic blood 2021-01-16 00:55:00 88 mm[Hg] Unive rsity of pressure [facility] Heart rate 2021-01-16 00:55:00 86 /min [facility] Body temperature 2021-01-16 00:55:00 36.94 Kelsey [facility] of [facility] Respiratory rate 2021-01-16 00:55:00 18 /min [facility] height 2021-01-16 00:55:00 157.5 cm [facility] Body weight 2021-01-16 00:55:00 53.978 [facility] BMI 2021-01-16 00:55:00 21.77 kg/m2 [facility] Oxygen saturation in 2021-01-16 00:55:00 99 /min [facility] Arterial blood by [facility] Pulse oximetry [place] Procedures Procedure Date / Time Performed Performing Clinician Sour e CONSENT/REFUSAL FOR 2021-01-16 00:48:25 Doctor Unassigned, No [facility] DIAGNOSIS AND Name [facility] TREATMENT NOTICE OF PRIVACY 2021-01-16 00:47:51 Doctor Unassigned, No [facility] PRACTICES Name [facility] Encounters Start End Encounter Admission Attending Care Care Encounter Source Date/Time Date/Time Type Type Clinicians Facility Department ID 2021-01-15 2021-01-15 Emergency X SINGER [facility] ERT [id number] Univers 19:59:00 20:38:00 CHRIS pal[place] [facility] 2021-01-15 2021-01-15 Emergency Singer [facility] [id number] Univers 19:59:00 20:38:00 Chris HERNANDEZ [id number] i ty of [place] [id number] [facility] [id number] [facility] 084 Branch 2021-01-15 2021-01-15 Orders Doctor PULLIAM [id number] Univers 00:00:00 00:00:00 Only Unassigned, SILVIA [id number] ity of [place] [facility] [id number] [facility] [id number] [facility] 009 Branch 2020-01-30 2020-01-30 Outpatient R SHIVANI, [facility] [id number] Univers 18:20:00 18:20:00 SHASHA pal[place] [facility] Results This patient has no known results.
--- NOTE | 2021-03-22 18:39 | RAD REPORT ---
EXAM DESCRIPTION: RAD - Wrist Left 3 View - 03/22/2021 6:07 pm CLINICAL HISTORY: PAIN Pain COMPARISON: No comparisons FINDINGS: No fracture or dislocation seen. No foreign body or other soft tissue abnormality. IMPRESSION: Negative examination.
--- NOTE | 2021-03-22 19:22 | ER ---
Nurse's Notes [facility] Name: Radha Alvarado Age: 40 yrs Sex: Female : 1980 Arrival Date: 03/22/2021 Time: 17:17 Bed Waiting Private MD: Cristobal Ward T Diagnosis: Pain in left hand Presentation: 03/22 17:28 Chief complaint: Patient states: Broke up dog fight at 1400 today. L hand thumb/wrist ll1 pain since. Coronavirus screen: Vaccine status: Patient reports being unvaccinated. Client denies travel out of the [place] in the last 14 days. At this time, the client does not indicate any symptoms associated with coronavirus-19. Ebola Screen: Patient denies travel to an Ebola-affected area in the 21 days before illness onset. Initial Sepsis Screen: Does the patient meet any 2 criteria? No. Patient's initial sepsis screen is negative. Does the patient have a suspected source of infection? Yes: Bone or joint infection. Risk Assessment: Do you want to hurt yourself or someone else? Patient reports no desire to harm self or others. Onset of symptoms was March 22, 2021. 17:28 Method Of Arrival: Ambulatory ll1 17:28 Acuity: TITUS 4 ll1 Historical: - Allergies: 17:30 Sulfa (Sulfonamide Antibiotics); ll1 - PMHx: 17:30 Anxiety; Depression; Kidney stones; UTI; ll1 - PSHx: 17:30 Lithotripsy; ll1 - Immunization history:: Client reports having NOT received the Covid vaccine. Flu vaccine status is unknown. - Social history:: Smoking status: Patient denies any tobacco usage or history of. Smoking status: Reported history of juuling and/or vaping. Vital Signs: 17:28 BP 121 / 76; Pulse 88; Resp 16; Temp 98.5; Pulse Ox 100% ; Weight 54.43 kg; Height 5 ll1 ft. 2 in. (157.48 cm); Pain 7/10; 17:28 Body Mass Index 21.95 (54.43 kg, 157.48 cm) ll1 ED Course: 17:17 Patient arrived in ED. mr 17:17 Cristobal Ward MD is Private Physician. mr 17:30 Triage completed. ll1 17:31 Arm band placed on. ll1 18:07 Wrist Left (3 View) XRAY In Process Unspecified. EDMS 19:21 [facility] Anderson [facility]C [facility] kb 19:21 Corby Real MD is Attending Physician. azam Administered Medications: No medications were administered Outcome: : Discharge ordered by . kb 19:25 Patient left the ED. kb Signatures: Dispatcher [employer] EDMS Dominga Anderson FNP-C FNP-Katarzyna Butterfield mr Jennifer Henderson, RN RN ll1
--- NOTE | 2021-03-22 19:22 | EDPHYS ---
Physician Documentation [facility] Name: Radha Alvarado Age: 40 yrs Sex: Female : 1980 Arrival Date: 03/22/2021 Time: 17:17 Bed Waiting Private MD: Cristobal Ward T ED Physician Corby Real HPI: 03/22 19:24 This 40 yrs old Female presents to ER via Ambulatory with complaints of Hand Injury. kb 19:24 The patient or guardian reports pain. The complaints affect the heel of left hand. kb Context: resulted from a fall. Onset: The symptoms/episode began/occurred just prior to arrival. Modifying factors: The symptoms are alleviated by nothing, the symptoms are aggravated by movement. Associated signs and symptoms: The patient has no apparent associated signs or symptoms. Severity of symptoms: At their worst the symptoms were mild, moderate, in the emergency department the symptoms are unchanged. The patient has not experienced similar symptoms in the past. The patient has not recently seen a physician. Pt reports she was breaking up the dogs that were fighting and fell onto left hand. c/o pain to heel of left hand. Historical: - Allergies: 17:30 Sulfa (Sulfonamide Antibiotics); ll1 - PMHx: 17:30 Anxiety; Depression; Kidney stones; UTI; ll1 - PSHx: 17:30 Lithotripsy; ll1 - Immunization history:: Client reports having NOT received the Covid vaccine. Flu vaccine status is unknown. - Social history:: Smoking status: Patient denies any tobacco usage or history of. Smoking status: Reported history of juuling and/or vaping. ROS: 19:23 Constitutional: Negative for fever, chills, and weight loss. kb 19:23 MS/extremity: Positive for ecchymosis, pain, tenderness, of the heel of left hand. 19:23 All other systems are negative. Exam: 19:23 Constitutional: This is a well developed, well nourished patient who is awake, alert, kb and in no acute distress. Head/Face: Normocephalic, atraumatic. ENT: Moist Mucous membranes Cardiovascular: Regular rate and rhythm with a normal S1 and S2. No gallops, murmurs, or rubs. No pulse deficits. Respiratory: Respirations even and unlabored. No increased work of breathing. Talking in full sentences Skin: Warm, dry with normal turgor. Normal color. Neuro: Awake and alert, GCS 15, oriented to person, place, time, and situation. Moves all extremities. Normal gait. Psych: Awake, alert, with orientation to person, place and time. Behavior, mood, and affect are within normal limits. 19:23 Musculoskeletal/extremity: Extremities: grossly normal except: noted in the heel of left hand: decreased ROM, ecchymosis, pain, ROM: intact in all extremities, Circulation is intact in all extremities. Sensation intact. Vital Signs: 17:28 BP 121 / 76; Pulse 88; Resp 16; Temp 98.5; Pulse Ox 100% ; Weight 54.43 kg; Height 5 ll1 ft. 2 in. (157.48 cm); Pain 7/10; 17:28 Body Mass Index 21.95 (54.43 kg, 157.48 cm) ll1 MDM: 19:21 Patient medically screened. kb 19:23 Data reviewed: vital signs, nurses notes. Data interpreted: Pulse oximetry: on room air kb is 100 %. Interpretation: normal. Counseling: I had a detailed discussion with the patient and/or guardian regarding: the historical points, exam findings, and any diagnostic results supporting the discharge/admit diagnosis, radiology results, the need for outpatient follow up, a orthopedic surgeon, to return to the emergency department if symptoms worsen or persist or if there are any questions or concerns that arise at home. 03/22 17:36 Order name: Wrist Left (3 View) XRAY; Complete Time: 19:17 kb Administered Medications: No medications were administered Disposition: 03/23 07:04 Co-signature as Attending Physician, Corby Real MD I agree with the assessment and rn plan of care. Attestation: The patient's history, exam findings, diagnostics, and a summary of any interventions or procedures was reviewed in detail with Dominga KINSEY. Disposition Summary: 03/22/21 19:21 Discharge Ordered Location: Home kb Condition: Stable kb Diagnosis - Pain in left hand kb Followup: kb - With: Emergency Department - When: As needed - Reason: Worsening of condition Followup: kb - With: Private Physician - When: 2 - 3 days - Reason: Recheck today's complaints, Continuance of care, Re-evaluation by your physician Discharge Instructions: - Discharge Summary Sheet kb - Musculoskeletal Pain kb - Hand Pain kb Forms: - Medication Reconciliation Form kb - Thank You Letter kb - Antibiotic Education kb - Prescription Opioid Use kb Signatures: Dispatcher [employer] Dominga Ward, AMELIE ENCARNACION-Corby Martinez MD MD rn Jennifer Henderson RN RN ll1
[2021-03-22 19:28] VITALS: BP 121/76; TEMP 98.5; O2SAT 100
== END 2021-03-22 19:25 | disposition home or self-care (01) ==
LOC: ER 17:15
DX: M79.642 Pain in left hand (principal); W01.0XXA Fall on same level from slipping, tripping and stumbling without subsequent striking against object, initial encounter; Y92.009 Unspecified place in unspecified non-institutional (private) residence as the place of occurrence of the external cause; Z88.2 Allergy status to sulfonamides
CPT/HCPCS: 99282

== ENCOUNTER 2021-04-04 11:55 | Emergency (ER) | payer SELFPAY ==
--- OUTSIDE RECORDS SUMMARY | 2021-04-04 11:58 | XMS REPORT | Continuity of Care Document ---
:1980 Author Organization [facility] t Address [address] [place] [address] Care Team Providers Name Role Phone HERNANDOCHETNALISY Primary Care Physician Unavailable BOBBY Attending Clinician Unavailable Bobby DO Attending Clinician Doctor Unassigned, Name Attending Clinician Unavailable SHIVANI Attending Clinician Unavailable Payers Payer Name Policy Type Policy Number Effective Date Expiration Date S ource [place] [id number] 2015 00:00:00 Problems Condition Condition Condition Status [...] to 7-24 ity of mide adverse 00:00: [place] Antibiot reaction 00 Medica l ics) s Branch Social History Social Habit Start Date Stop Date Quantity Comments Source Exposure to Not sure University of SARS-CoV-2 [facility] (event) Branch Alcohol intake 2018-08-12 2018-08-12 0 /d University of 00:00:00 00:00:00 [facility] Tobacco use and 2013-10-03 2013-10-03 Current user Univers ity of exposure 00:00:00 00:00:00 [facility] Tobacco Comment 2013-10-03 2013-10-03 e-cigarettes Univers ity of 00:00:00 00:00:00 [facility] History of 2013-08-03 Cigarette Smoker Universi ty of tobacco use 00:00:00 [facility] Sex Assigned At [birth year] Universit y of 00:00:00 00:00:00 [facility] Smoking Status Start Date Stop Date Source Former smoker 2013-10-03 00:00:00 2013-10-03 00:00:00 Universi ty of [facility] Medications Ordered Filled Start Stop Current Ordering Indication Dosage Frequency Signature Comments Components Source Medication Medication Date Date Medication? Clinician (SIG) Name Name 2014-03 Yes [id number] 1{tbl} Take 1 Tab Univers multivitami 1-12 by mouth [place] [facility] tablet [place] 2014-03 Yes [id number] 1{tbl} Take 1 Tab Univers multivitami 1-12 by mouth [place] 00 [facility] tablet [place] Immunizations Ordered Filled Immunization Date Status Comments Sourc e Immunization Name Name Influenza Virus 2015-01-22 Completed Universit y of Vaccine Quad IM 3+ 00:00:00 [facility] Branch Influenza Virus 2015-01-22 Completed Universit y of Vaccine Quad IM 3+ 00:00:00 [facility] Branch Td 2011-10-04 Completed University 00:00:00 [facility] Td 2011-10-04 Completed University 00:00:00 [facility] Vital Signs Vital Name Observation Time Observation Value Comments Source Systolic blood 2021-01-16 00:55:00 128 mm[Hg] Univer sity of pressure [facility] Diastolic blood 2021-01-16 00:55:00 88 mm[Hg] Unive rsity of pressure [facility] Heart rate 2021-01-16 00:55:00 86 /min [facility] Body temperature 2021-01-16 00:55:00 36.94 [facility] Respiratory rate 2021-01-16 00:55:00 18 /min [facility] height 2021-01-16 00:55:[address] [facility] Body weight 2021-01-16 00:55:[address] [facility] BMI 2021-01-16 00:55:00 21.77 kg/m2 [facility] Oxygen saturation in 2021-01-16 00:55:00 99 /min [facility] Arterial blood by [facility] Pulse oximetry [place] Procedures Procedure Date / Time Performed Performing Clinician [facility] e CONSENT/REFUSAL FOR 2021-01-16 00:48:25 Doctor Unaviky, No [facility] DIAGNOSIS AND Name [facility] TREATMENT NOTICE OF PRIVACY 2021-01-16 00:47:51 Doctor Unassigned, No [facility] PRACTICES Name [facility] Encounters Start End Encounter Admission Attending Care Care Encounter Source Date/Time Date/Time Type Type Clinicians Facility Department ID 2021-01-15 2021-01-15 Emergency X SINGER [facility]UST ERT [id number] Univers 19:59:00 20:38:00 CHRIS palma [facility] 2021-01-15 2021-01-15 Emergency Singer RUST [id number] Univers 19:59:00 20:38:00 Chris HERNANDEZ [id number] i ty of [place] [id number] [facility] [id number] [facility] 084 Branch 2021-01-15 2021-01-15 Orders Doctor PULLIAM [id number] Univers 00:00:00 00:00:00 Only Unassigned, SILVIA [id number] ity of [place] [facility] [id number] [facility] [id number] [facility] 009 Branch 2020-01-30 2020-01-30 Outpatient R PARRISH, [facility] [id number] Univers 18:20:00 18:20:00 SHASHA palma [facility] Results This patient has no known results.
--- NOTE | 2021-04-04 13:43 | RAD REPORT ---
EXAM DESCRIPTION: RAD - Foot Left 3 View - 04/04/2021 1:31 pm CLINICAL HISTORY: PAIN COMPARISON: No comparisons FINDINGS: No acute fracture. No malalignment. No significant focal degenerative changes. IMPRESSION: No acute osseous abnormality involving the left foot.
--- NOTE | 2021-04-04 13:45 | RAD REPORT ---
EXAM DESCRIPTION: RAD - Foot Right 3 View - 04/04/2021 1:31 pm CLINICAL HISTORY: PAIN COMPARISON: No comparisons FINDINGS: Minimally displaced fracture at the first distal phalanx. Probable intra-articular extensi on. No malalignment. No significant focal degenerative changes. IMPRESSION: Minimally displaced fracture involving the first distal phalanx.
--- NOTE | 2021-04-04 14:00 | ER ---
Nurse's Notes [facility] Name: Radha Alvarado Age: 40 yrs Sex: Female : 1980 Arrival Date: 04/04/2021 Time: 11:58 Bed 14 Private MD: Cristobal Ward T Diagnosis: Nondisplaced fracture of proximal phalanx of right great toe, initial encounter for closed fracture Presentation: 04/04 12:02 Chief complaint: Patient states: pt reported tripping on dog, fell and stubbed left romero foot on fire pit and injured right lower leg x3 days ago. Coronavirus screen: Vaccine status: Patient reports being unvaccinated. Ebola Screen: Patient denies travel to an Ebola-affected area in the 21 days before illness onset. Initial Sepsis Screen: Does the patient meet any 2 criteria? No. Patient's initial sepsis screen is negative. Does the patient have a suspected source of infection? No. Patient's initial sepsis screen is negative. Risk Assessment: Do you want to hurt yourself or someone else? Patient reports no desire to harm self or others. Onset of symptoms was April 01, 2021. 12:02 Method Of Arrival: Ambulatory romero 12:02 Acuity: TITUS 4 romero Triage Assessment: 12:15 General: Appears in no apparent distress. well groomed, well nourished, Behavior is cb5 calm, cooperative, appropriate for age. Pain: Complains of pain in left foot Pain currently is 4 out of 10 on a pain scale. Musculoskeletal: No deficits noted. Injury Description: Bruise. Historical: - Allergies: 12:05 Sulfa (Sulfonamide Antibiotics); romero - Home Meds: 12:05 Xanax Oral [Active]; Adderall XR Oral as needed [Active]; romero - PMHx: 12:05 Anxiety; Depression; Kidney stones; UTI; romero - PSHx: 12:05 Lithotripsy; romero - Immunization history:: Adult Immunizations up to date, Last tetanus immunization: up to date. - Social history:: Smoking status: Patient denies any tobacco usage or history of. - Family history:: not pertinent. - Hospitalizations: : No recent hospitalization is reported. Screenin:20 Abuse screen: Denies threats or abuse. Denies injuries from another. Nutritional cb5 screening: No deficits noted. Tuberculosis screening: No symptoms or risk factors identified. Fall Risk None identified. Assessment: 12:15 General: Appears in no apparent distress. comfortable, well nourished, Behavior is cb5 calm, cooperative, appropriate for age. Pain: Complains of pain in left foot Pain does not radiate. Pain currently is 4 out of 10 on a pain scale. Neuro: No deficits noted. Level of Consciousness is awake, alert, obeys commands, Oriented to person, place, time, situation, Appropriate for age. Cardiovascular: No deficits noted. Respiratory: No deficits noted. GI: No deficits noted. : No deficits noted. EENT: No deficits noted. Derm: No deficits noted. Musculoskeletal: No deficits noted. 12:25 General: Appears. cb5 13:15 Reassessment: Patient and/or family updated on plan of care and expected duration. Pain cb5 level reassessed. Vital Signs: 12:02 BP 113 / 71; Pulse 79; Resp 18; Temp 98.9; Pulse Ox 100% on R/A; Weight 54.43 kg; romero Height 5 ft. 2 in. (157.48 cm); 12:28 BP 102 / 67; Pulse 70; Resp 16; Temp 98.6; Pulse Ox 98% ; Pain 4/10; cb5 14:05 BP 103 / 68; Pulse 72; Resp 16; Temp 98.7; Pulse Ox 100% ; Pain 0/10; cb5 12:02 Body Mass Index 21.95 (54.43 kg, 157.48 cm) romero ED Course: 11:58 Patient arrived in ED. am2 11:58 Cristobal Ward MD is Private Physician. am2 12:05 Triage completed. romero 12:19 Corby Real MD is Attending Physician. rn 12:20 No provider procedures requiring assistance completed. cb5 12:24 Renetta Arreola, RN is Primary Nurse. cb5 12:24 Patient has correct armband on for positive identification. Bed in low position. Call mb4 light in reach. Pulse ox on. NIBP on. 13:32 XRAY Foot LEFT 3 View In Process Unspecified. EDMS 13:32 XRAY Foot RIGHT 3 View In Process Unspecified. EDMS 14:16 Arm band placed on. cb5 Administered Medications: No medications were administered Outcome: 13:59 Discharge ordered by . rn 14:16 Discharged to home ambulatory. cb5 14:16 Condition: stable 14:16 Discharge instructions given to patient. 14:16 Patient left the ED. cb5 Signatures: Dispatcher [employer] Corby Isaac MD MD rn Moreno, Amanda am2 Baxter, Mackenzie mb4 Licha Mendez RN RN ha Boman, Colleen, RN RN cb5
--- NOTE | 2021-04-04 14:00 | EDPHYS ---
Physician Documentation [facility] Name: Radha Alvarado Age: 40 yrs Sex: Female : 1980 Arrival Date: 04/04/2021 Time: 11:58 Bed 14 Private MD: Cristobal Ward T ED Physician Corby Real HPI: 04/04 12:54 This 40 yrs old Female presents to ER via Ambulatory with complaints of Foot Injury, rn Toe Injury. 12:54 The patient presents with an injury, pain. The complaints affect the left foot, right rn foot. Context: The problem was sustained at home, resulted from stubbing toe on furniture. the patient can fully bear weight, the patient is able to ambulate. Onset: The symptoms/episode began/occurred 3 day(s) ago. Modifying factors: The symptoms are alleviated by elevation of extremity, the symptoms are aggravated by movement, wearing shoes. Associated signs and symptoms: Pertinent positives: swelling, Pertinent negatives: weakness. Severity of symptoms: At their worst the symptoms were moderate, in the emergency department the symptoms are unchanged. The patient has not experienced similar symptoms in the past. The patient has not recently seen a physician. Patient reports was outside barefoot 3 days ago and accidentally kicked heavy object, reports majority of pain to the second/third/fourth toes of the left foot, but also has pain to the great toe of the right foot. No other injuries. Reports that would be better by now but not improving. Hurts to ambulate.. Historical: - Allergies: 12:05 Sulfa (Sulfonamide Antibiotics); romero - Home Meds: 12:05 Xanax Oral [Active]; Adderall XR Oral as needed [Active]; romero - PMHx: 12:05 Anxiety; Depression; Kidney stones; UTI; romero - PSHx: 12:05 Lithotripsy; romero - Immunization history:: Adult Immunizations up to date, Last tetanus immunization: up to date. - Social history:: Smoking status: Patient denies any tobacco usage or history of. - Family history:: not pertinent. - Hospitalizations: : No recent hospitalization is reported. ROS: 12:54 Constitutional: Negative for fever, chills, and weight loss, MS/Extremity: Positive for rn injury and pain to both feet Skin: Negative for lacerations or active bleeding. Positive bruising to both feet Exam: 12:54 Constitutional: This is a well developed, well nourished patient who is awake, alert, rn and in no acute distress. MS/ Extremity: Pulses equal, no cyanosis. Mild tenderness and ecchymosis to the left second third and fourth toes without open wounds. Mild tenderness with ecchymosis to the right great toe. No proximal foot or ankle tenderness Vital Signs: 12:02 BP 113 / 71; Pulse 79; Resp 18; Temp 98.9; Pulse Ox 100% on R/A; Weight 54.43 kg; romero Height 5 ft. 2 in. (157.48 cm); 12:28 BP 102 / 67; Pulse 70; Resp 16; Temp 98.6; Pulse Ox 98% ; Pain 4/10; cb5 14:05 BP 103 / 68; Pulse 72; Resp 16; Temp 98.7; Pulse Ox 100% ; Pain 0/10; cb5 12:02 Body Mass Index 21.95 (54.43 kg, 157.48 cm) romero MDM: 12:19 Patient medically screened. rn 13:58 Differential diagnosis: fracture, sprain. Data reviewed: vital signs, nurses notes, rn radiologic studies, plain films, and as a result, I will discharge patient. Counseling: I had a detailed discussion with the patient and/or guardian regarding: the historical points, exam findings, and any diagnostic results supporting the discharge/admit diagnosis, radiology results, the need for outpatient follow up, to return to the emergency department if symptoms worsen or persist or if there are any questions or concerns that arise at home. Response to treatment: the patient's symptoms have mildly improved after treatment, and as a result, I will discharge patient. Special discussion: I discussed with the patient/guardian in detail that at this point there is no indication for admission to the hospital. It is understood, however, that if the symptoms persist or worsen the patient needs to return immediately for re-evaluation. Based on the history and exam findings, there is no indication for further emergent testing or inpatient evaluation. I discussed with the patient/guardian the need to see the instrument repair specialist for further evaluation of the symptoms. 04/04 12:24 Order name: XRAY Foot LEFT 3 View; Complete Time: 13:50 rn 04/04 12:24 Order name: XRAY Foot RIGHT 3 View; Complete Time: 13:50 rn Administered Medications: No medications were administered Disposition Summary: 04/04/21 13:59 Discharge Ordered Location: Home rn Problem: new rn Symptoms: have improved rn Condition: Stable rn Diagnosis - Nondisplaced fracture of proximal phalanx of right great toe, initial encounter for rn closed fracture Followup: rn - With: Private Physician - When: As needed - Reason: Recheck today's complaints, Re-evaluation by your physician Discharge Instructions: - Discharge Summary Sheet rn - Toe Fracture rn Forms: - Medication Reconciliation Form rn - Thank You Letter rn - Antibiotic market research intern - Prescription Opioid Use rn Signatures: Dispatcher [employer] EDCorby Peng MD MD rn Licha Mendez RN RN romero
[2021-04-04 17:41] VITALS: BP 103/68; TEMP 98.7; O2SAT 100
== END 2021-04-04 14:16 | disposition home or self-care (01) ==
LOC: ER 11:55
DX: S92.414A Nondisplaced fracture of proximal phalanx of right great toe, initial encounter for closed fracture (principal); W22.8XXA Striking against or struck by other objects, initial encounter; F41.8 Other specified anxiety disorders; Z88.2 Allergy status to sulfonamides
CPT/HCPCS: 99283

== ENCOUNTER 2021-05-28 18:48 | Emergency (ER) | payer SELFPAY ==
--- OUTSIDE RECORDS SUMMARY | 2021-05-28 18:51 | XMS REPORT | Continuity of Care Document ---
:1980 Author Organization [facility] t Address [address] [place] [address] Care Team Providers Name Role Phone HERNANDOCHETNALISY Primary Care Physician Unavailable BOBBY Attending Clinician Unavailable Bobby DO Attending Clinician Doctor Unassigned, Name Attending Clinician Unavailable SHIVANI Attending Clinician Unavailable Payers Payer Name Policy Type Policy Number Effective Date Expiration Date S ource [place]ICAID [place] [id number] 2015 00:00:00 Problems Condition Condition Condition Status [...] to 7-24 ity of mide adverse 00:00: [place] Antibiot reaction 00 Medica l ics) s Branch Social History Social Habit Start Date Stop Date Quantity Comments Source Exposure to Not sure University of SARS-CoV-2 [facility] (event) Branch Alcohol intake 2018-08-12 2018-08-12 0 /d University of 00:00:00 00:00:00 [facility] Tobacco use and 2013-10-03 2013-10-03 Current user Univers ity of exposure 00:00:00 00:00:00 [facility] Tobacco Comment 2013-10-03 2013-10-03 e-cigarettes Univers ity of 00:00:00 00:00:00 [facility] History of 2013-08-03 Cigarette Smoker Universi ty of tobacco use 00:00:00 [facility] Sex Assigned At [birth year] Universit y of 00:00:00 00:00:00 [facility] Smoking Status Start Date Stop Date Source Former smoker 2013-10-03 00:00:00 2013-10-03 00:00:00 Universi ty of [facility] Medications Ordered Filled Start Stop Current Ordering Indication Dosage Frequency Signature Comments Components Source Medication Medication Date Date Medication? Clinician (SIG) Name Name 2014-03 Yes [id number] 1{tbl} Take 1 Tab Univers multivitami 1-12 by mouth [place] [facility] tablet [place] 2014-03 Yes [id number] 1{tbl} Take 1 Tab Univers multivitami 1-12 by mouth [place]y of [place] ( [place] 00 [facility] tablet [place] Immunizations Ordered Filled Immunization Date Status Comments Sourc e Immunization Name Name Influenza Virus 2015-01-22 Completed Universit y of Vaccine Quad IM 3+ 00:00:00 [facility] Branch Influenza Virus 2015-01-22 Completed Universit y of Vaccine Quad IM 3+ 00:00:00 [facility] Branch Td 2011-10-04 Completed University 00:00:00 [facility] Td 2011-10-04 Completed University 00:00:00 [facility] Vital Signs Vital Name Observation Time Observation Value Comments Source Systolic blood 2021-01-16 00:55:00 128 mm[Hg] Univer sity of pressure [facility] Diastolic blood 2021-01-16 00:55:00 88 mm[Hg] Unive rsity of pressure [facility] Heart rate 2021-01-16 00:55:00 86 /min [facility] Body temperature 2021-01-16 00:55:00 36.94 Kelsey [facility] Respiratory rate 2021-01-16 00:55:00 18 /min [facility] Body height 2021-01-16 00:55:00 157.5 cm [facility] Body weight 2021-01-16 00:55:00 53.978 kg [facility] BMI 2021-01-16 00:55:00 21.77 kg/m2 [facility] Oxygen saturation in 2021-01-16 00:55:00 99 /min [facility] Arterial blood by [facility] Pulse oximetry [place] Procedures Procedure Date / Time Performed Performing Clinician [facility] e CONSENT/REFUSAL FOR 2021-01-16 00:48:25 Doctor Unaviky, No [facility] DIAGNOSIS AND Name [facility] TREATMENT NOTICE OF PRIVACY 2021-01-16 00:47:51 Doctor Unassigned, No [facility] PRACTICES Name [facility] Encounters Start End Encounter Admission Attending Care Care Encounter Source Date/Time Date/Time Type Type Clinicians Facility Department ID 2021-01-15 2021-01-15 Emergency X SINGER [facility] ERT [id number] Univers 19:59:00 20:38:00 CHRIS palma [facility] [place] [facility] 2021-01-15 2021-01-15 Emergency Singer [facility] [id number] Univers 19:59:00 20:38:00 Chris HERNANDEZ [id number] i ty of [place] [id number] [facility] [id number] [facility] 084 Branch 2021-01-15 2021-01-15 Orders Doctor PULLIAM [id number] Univers 00:00:00 00:00:00 Only Unassigned, SILVIA [id number] ity of Blue [facility] [id number] [facility] [place] [id number] [facility] 009 Branch 2020-01-30 2020-01-30 Outpatient R PARRISH, [facility] [id number] Univers 18:20:00 18:20:00 SHASHA palma [facility] Results This patient has no known results.
--- NOTE | 2021-05-28 19:48 | RAD REPORT ---
EXAM DESCRIPTION: RAD - Shoulder Left 2 View - 05/28/2021 7:34 pm CLINICAL HISTORY: PAIN COMPARISON: Foot Right 3 View dated 04/04/2021 FINDINGS: No fracture or dislocation seen.
--- NOTE | 2021-05-28 19:49 | RAD REPORT ---
EXAM DESCRIPTION: RAD - Hand Right 3 View - 05/28/2021 7:34 pm CLINICAL HISTORY: PAIN COMPARISON: No comparisons FINDINGS: No fracture or dislocation seen.
[2021-05-28] MEDS ORDERED: TETANUS & DIPHTHERIA TOX,ADULT 0.5 ML VIAL ONE (20:43)
--- NOTE | 2021-05-28 20:46 | EDPHYS ---
Physician Documentation [facility] Name: Radha Alvarado Age: 40 yrs Sex: Female : 1980 Arrival Date: 05/28/2021 Time: 18:50 Bed Waiting Private MD: Cristobal Ward T ED Physician Kashmir Armijo HPI: 05/28 20:48 This 40 yrs old Female presents to ER via Ambulatory with complaints of Thumb Injury kdr and shoulder. 20:49 The patient or guardian complains of an abrasion, decreased range of motion, injury, a kdr laceration, clean, pain, tenderness. The patient states that she fell while working in her garden on Monday night. Since then she has had pain in her right thumb where she also had a laceration across the posterior aspect of the thumb between the PIP and the DIP. She also has pain in her left shoulder. She currently has full range of motion and no other injuries. Patient is otherwise in good health is nontoxic-appearing in the ED. 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 Flu vaccine status is unknown. - Social history:: Smoking status: Reported history of juuling and/or vaping. ROS: 20:49 Constitutional: Negative for fever, chills, and weight loss, Eyes: Negative for injury, kdr pain, redness, and discharge. 20:49 MS/extremity: Positive for injury or acute deformity, decreased range of motion, pain, of the chest and anterior aspect of left shoulder, Negative for rash, swelling, tenderness. 20:49 MS/extremity: Positive for of the dorsal aspect of proximal phalanx of right thumb. Exam: 20:49 Constitutional: This is a well developed, well nourished patient who is awake, alert, kdr and in no acute distress. Head/Face: Normocephalic, atraumatic. Eyes: Pupils equal round and reactive to light, extra-ocular motions intact. Lids and lashes normal. Conjunctiva and sclera are non-icteric and not injected. Cornea within normal limits. Periorbital areas with no swelling, redness, or edema. Chest/axilla: Normal chest wall appearance and motion. Nontender with no deformity. No lesions are appreciated. 20:49 Musculoskeletal/extremity: Extremities: noted in the anterior aspect of left shoulder: decreased ROM, pain, tenderness, Patient has a very minor discomfort to the anterior aspect of the shoulder around the AC joint. He overall has good range of motion of the shoulder., noted in the dorsal aspect of proximal phalanx of right thumb: Vital Signs: 18:55 BP 111 / 79; Pulse 83; Resp 16; Temp 98.8; Pulse Ox 100% ; Weight 56.7 kg; Height 5 ft. ll1 2 in. (157.48 cm); Pain 8/10; 18:55 Body Mass Index 22.86 (56.70 kg, 157.48 cm) ll1 MDM: 20:46 Patient medically screened. kdr 20:49 Data reviewed: vital signs, nurses notes, radiologic studies. Counseling: I had a kdr detailed discussion with the patient and/or guardian regarding: the historical points, exam findings, and any diagnostic results supporting the discharge/admit diagnosis, radiology results, the need for outpatient follow up. 05/28 18:59 Order name: Hand Right 3 View XRAY; Complete Time: 20:30 ll1 05/28 18:59 Order name: Shoulder Left (2 View) XRAY; Complete Time: 20:30 ll1 05/28 20:41 Order name: [facility]. Order: Clean and dress wound to right thumb and placed splint; kdr Complete Time: 20:49 Administered Medications: 20:44 Drug: Tetanus-Diphtheria Toxoid Adult 0.5 ml {Features Editor: [employer]. Exp: al4 07/31/2022. Lot #: [id number]. } Route: IM; Site: right deltoid; Disposition Summary: 05/28/21 20:46 Discharge Ordered Location: Home kdr Problem: new kdr Symptoms: have improved kdr Condition: Stable kdr Diagnosis - Abrasion of right thumb kdr - Other sprain of right thumb kdr - Pain in right shoulder kdr - Other sprain of right shoulder joint kdr Followup: kdr - With: Cristobal Ward MD - When: 2 - 3 days - Reason: If symptoms return, Further diagnostic work-up, Recheck today's complaints, Continuance of care, Re-evaluation by your physician Discharge Instructions: - Discharge Summary Sheet kdr - Joint Pain kdr - Musculoskeletal Pain kdr - Thumb Sprain kdr - Shoulder Pain, [id number] kdr - Reverse Total Shoulder Replacement kdr Forms: - Medication Reconciliation Form kdr - Thank You Letter kdr Signatures: Dispatcher [employer] Kashmir Hendrickson MD MD kdr Jennifer Henderson RN RN ll1 [facility]
--- NOTE | 2021-05-28 20:46 | ER ---
Nurse's Notes [facility] Name: Radha Alvarado Age: 40 yrs Sex: Female : 1980 Arrival Date: 05/28/2021 Time: 18:50 Bed Waiting Private MD: Cristobal Ward T Diagnosis: Abrasion of right thumb;Other sprain of right thumb;Pain in right shoulder;Other sprain of right shoulder joint Presentation: 05/28 18:55 Chief complaint: Patient states: s/p slip and fall Abi night while fixing her ll1 fence. R thum pain and L shoulder pain since. Abrasion to R thumb and L FA. Coronavirus screen: Vaccine status: Patient reports being unvaccinated. Client denies travel out of the [place] in the last 14 days. At this time, the client does not indicate any symptoms associated with coronavirus-19. Ebola Screen: Patient denies travel to an Ebola-affected area in the 21 days before illness onset. Initial Sepsis Screen: Does the patient meet any 2 criteria? No. Patient's initial sepsis screen is negative. Does the patient have a suspected source of infection? Yes: Bone or joint infection. Risk Assessment: Do you want to hurt yourself or someone else? Patient reports no desire to harm self or others. Onset of symptoms was May 25, 2021. 18:55 Method Of Arrival: Ambulatory 1 18:55 Acuity: TITUS 4 ll1 Triage Assessment: 19:02 General: Appears uncomfortable, Behavior is calm, cooperative, appropriate for age. ll1 Pain: Complains of pain in R thumb Quality of pain is described as aching. Musculoskeletal: Reports pain in R thumb, L shoulder. Injury Description: Bruise. 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 Flu vaccine status is unknown. - Social history:: Smoking status: Reported history of juuling and/or vaping. Screenin:46 Abuse screen: Denies threats or abuse. Nutritional screening: No deficits noted. al4 Tuberculosis screening: No symptoms or risk factors identified. Fall Risk None identified. Assessment: 20:45 General: Appears in no apparent distress. comfortable, Behavior is calm, cooperative, al4 appropriate for age. Pain: Complains of pain in thumb Pain currently is 8 out of 10 on a pain scale. Neuro: Level of Consciousness is awake, alert, obeys commands, Oriented to person, place, time, situation. Cardiovascular: Capillary refill < 3 seconds Patient's skin is warm and dry. Respiratory: Airway is patent Respiratory effort is unlabored, Respiratory pattern is regular. Musculoskeletal: Circulation, motion, and sensation intact. 21:19 Reassessment: patient left discharge paperwork at hospital. al4 Vital Signs: 18:55 BP 111 / 79; Pulse 83; Resp 16; Temp 98.8; Pulse Ox 100% ; Weight 56.7 kg; Height 5 ft. ll1 2 in. (157.48 cm); Pain 8/10; 18:55 Body Mass Index 22.86 (56.70 kg, 157.48 cm) ll1 ED Course: 18:50 Patient arrived in ED. as 18:50 Cristobal Ward MD is Private Physician. as 18:58 Triage completed. ll1 18:58 Arm band placed on. ll1 19:33 Hand Right 3 View XRAY In Process Unspecified. EDMS 19:33 Shoulder Left (2 View) XRAY In Process Unspecified. EDMS 20:30 Kashmir Armijo MD is Attending Physician. kdr 20:43 Cristobal Ward MD is Referral Physician. kdr 20:46 Patient has correct armband on for positive identification. al4 20:46 No provider procedures requiring assistance completed. Patient did not have IV access al4 during this emergency room visit. 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 Exp: al4 07/31/2022. Lot #: [id number]. } Route: IM; Site: right deltoid; Outcome: 20:46 Discharge ordered by . kdr 20:46 Discharged to home ambulatory. al4 20:46 Condition: stable 20:46 Discharge instructions given to patient, Instructed on discharge instructions, follow up and referral plans. Demonstrated understanding of instructions, follow-up care. 21:19 Patient left the ED. al4 Signatures: Dispatcher [place] EDMS Kashmir Armijo MD MD kdr Martinez, Amelia as Lewis, Lynsay, RN RN ll1 [place] [facility] al4 Corrections: (The following items were deleted from the chart) 19:02 18:55 Acuity: TITUS 3 ll1 ll1 23:45 20:45 Pain: Complains of pain in dorsal aspect of distal phalanx of right thumb, dorsal al4 aspect of proximal phalanx of right thumb and Right first web space Pain currently is 8 out of 10 on a pain scale. al4 23:46 23:45 Reassessment: patient left discharge paperwork at hospital al4 al4
[2021-05-28 21:54] VITALS: BP 111/79; TEMP 98.8; O2SAT 100
== END 2021-05-28 21:19 | disposition home or self-care (01) ==
LOC: ER 18:48
DX: S63.681A Other sprain of right thumb, initial encounter (principal); S43.491A Other sprain of right shoulder joint, initial encounter; M25.511 Pain in right shoulder; W18.30XA Fall on same level, unspecified, initial encounter; Y93.H2 Activity, gardening and landscaping; Z23 Encounter for immunization; Z88.2 Allergy status to sulfonamides
CPT/HCPCS: 90471; 90714; 99283

== ENCOUNTER 2021-11-23 19:54 | Emergency (ER) | payer SELFPAY ==
--- OUTSIDE RECORDS SUMMARY | 2021-11-23 19:57 | XMS REPORT | Continuity of Care Document ---
:1980 Author Organization [facility] t Address [address] [place] [address] Care Team Providers Name Role Phone KALLIE VILLAGOMEZ Primary Care Physician Unavailable CHRIS BOBBY Attending Clinician Unavailable Chris Bobby DO Attending Clinician Doctor Unassigned, [place] Attending Clinician Unavailable SHASHA PARRISH Attending Clinician Unavailable Payers Payer Name Policy Type Policy Number Effective Date Expiration Date S ource [place]ICAID [place] [id number] 2015 00:00:00 Problems Condition Condition Condition Status [...] Propensi Active Hives Univers (Sulfona ty to 24 ity of mide adverse 00:00: [place] Antibiot reaction 00 Medica l ics) s Branch Social History Social Habit Start Date Stop Date Quantity Comments Source Exposure to Not sure University of SARS-CoV-2 [place] [facility] (event) Branch Alcohol intake 2018-08-12 2018-08-12 0 /d University of 00:00:00 00:00:[address] [facility] Tobacco use and 2013-10-03 2013-10-03 Current user Univers ity of exposure 00:00:00 00:00:[address] [facility] Tobacco Comment 2013-10-03 2013-10-03 e-cigarettes Univers ity of 00:00:00 00:00:[address] [facility] History of 2013-08-03 Cigarette Smoker Universi ty of tobacco use 00:00:[address] [facility] Sex Assigned At [birth year] Universit y of 00:00:00 00:00:[address] [facility] Smoking Status Start Date Stop Date Source Former smoker 2013-10-03 00:00:00 2013-10-03 00:00:[address] [facility] Medications Ordered Filled Start Stop Current Ordering Indication Dosage Frequency Signature Comments Components Source Medication Medication Date Date Medication? Clinician (SIG) Name Name 2014-03 Yes [id number] 1{tbl} Take 1 Tab Univers multivitami 1-12 by mouth [place] of [place] 00 [facility] 2014-03 Yes [id number] 1{tbl} Take 1 Tab Univers multivitami 1-12 by mouth ity of [place] ( [place] 00 [facility] Immunizations Ordered Filled Immunization Date Status Comments Sourc e Immunization Name Name Influenza Virus 2015-01-22 Completed Universit y of Vaccine Quad IM 3+ 00:00:00 [facility] YRS Branch Influenza Virus 2015-01-22 Completed Universit y of Vaccine Quad IM 3+ 00:00:00 [facility] Branch Td 2011-10-04 Completed University of 00:00:[address] [facility] Td 2011-10-04 Completed University of 00:00:[address] [facility] Vital Signs Vital Name Observation Time Observation Value Comments Source Systolic blood 2021-01-16 00:55:00 128 mm[Hg] Univer sity of pressure [facility] Diastolic blood 2021-01-16 00:55:00 88 mm[Hg] Unive rsity of pressure [facility] Heart rate 2021-01-16 00:55:00 86 /min [facility] Body temperature 2021-01-16 00:55:00 36.94 [facility] [place] [place] Respiratory rate 2021-01-16 00:55:00 18 /min [facility] [place] [place] Body height 2021-01-16 00:55:00 157.5 cm [facility] Body weight 2021-01-16 00:55:00 53.978 kg [facility] BMI 2021-01-16 00:55:00 21.77 kg/m2 [facility] Oxygen saturation in 2021-01-16 00:55:00 99 /min [facility] Arterial blood by [facility] Pulse oximetry Branch Procedures Procedure Date / Time Performed Performing Clinician [facility] e CONSENT/REFUSAL FOR 2021-01-16 00:48:25 Doctor Unassigned, No [facility] DIAGNOSIS AND Name [facility] TREATMENT NOTICE OF PRIVACY 2021-01-16 00:47:51 Doctor Unassigned, No [facility] PRACTICES Name [facility] Encounters Start End Encounter Admission Attending Care Care Encounter Source Date/Time Date/Time Type Type Clinicians Facility Department ID 2021-01-15 2021-01-15 Emergency X SINGER [facility] ERT [id number] Univers 19:59:00 20:38:00 CHRIS palma [facility] 2021-01-15 2021-01-[address] [facility] [id number] Univers 19:59:00 20:38:00 Chris HERNANDEZ [id number] i ty of [place] [id number] [facility] [id number] [facility] 084 Branch 2021-01-15 2021-01-15 Orders Doctor PULLIAM [id number] Univers 00:00:00 00:00:00 Only UnassignedSILVIA [id number] ity of [place] [facility] [id number] [place] [address] [id number] [place] [address] Branch 2020-01-30 2020-01-30 Outpatient R SHIVANI [facility] [id number] Univers 18:20:00 18:20:00 SHASHA palma of [facility] Results This patient has no known results.
[2021-11-23 21:55] LABS: Absolute Lymphocytes (CBC) 2.6 K/uL (0.7-4.9); Hematocrit 36.8 % (36.0-45.0); Lymphocytes % 24.9 % (15.3-44.8); MPV 7.6 fL (7.6-11.3); RBC Red Blood Cell Count 4.23 M/uL (3.86-4.86)
[2021-11-23] MEDS ORDERED: KETOROLAC 30 MG/ML INJ ONE (22:10)
[2021-11-23] MEDS ORDERED: NA CHLORIDE 0.9% 1,000 ML ONE (22:10)
--- NOTE | 2021-11-23 22:13 | RAD REPORT ---
EXAM DESCRIPTION: RAD - Chest Single View - 11/23/2021 9:54 pm CLINICAL HISTORY: CHEST PAIN Chest pain. COMPARISON: Chest Single View dated 01/01/2021; Abdomen 1 View (KUB) dated 05/04/2020; CHEST SINGLE V IEW dated 09/04/2014; CHEST PA AND LAT 2 VIEW dated 06/01/2010 FINDINGS: Portable technique limits examination quality. The lungs are grossly clear. The heart is normal in size. No displaced fractures. IMPRESSION: No acute intrathoracic process suspected.
[2021-11-23 22:25] LABS: Troponin High Sensitivity 3.6 pg/mL (<58.9)
[2021-11-23 22:26] LABS: Potassium 4.1 mmol/L (3.5-5.1)
--- NOTE | 2021-11-23 22:34 | RAD REPORT ---
EXAM DESCRIPTION: CT - Head Brain Wo Cont - 11/23/2021 10:19 pm CLINICAL HISTORY: Headache, sudden, severe COMPARISON: HEAD BRAIN W O CONTRAST dated 09/04/2014; HEAD BRAIN W O CONTRAST dated 09/23/2008; Foot L eft 3 View dated 04/04/2021 TECHNIQUE: All CT scans are performed using dose optimization technique as appropriate and may inclu de automated exposure control or mA/KV adjustment according to patient size. FINDINGS: No intracranial hemorrhage, hydrocephalus or extra-axial fluid collection.1 cm area of dim inished density is seen adjacent to the right caudate head.No areas of brain edema or evidence of mid line shift. The paranasal sinuses and mastoids are clear. The calvarium is intact. IMPRESSION: No acute bleed, hydrocephalus, midline shift or extra-axial fluid collection. 1 cm area of diminished density adjacent to the right caudate head is noted, new since 2014 prior [place] dy. Recommend follow-up MRI brain with contrast for further evaluation.
[2021-11-23 22:35] LABS: Protime INR 1.07
[2021-11-23] MEDS ORDERED: ONDANSETRON 4 MG/2 ML VIAL ONE (23:05)
[2021-11-23] MEDS ORDERED: MORPHINE 4 MG/ML SYR ONE (23:05)
--- NOTE | 2021-11-24 00:05 | EDPHYS ---
Physician Documentation [facility] Name: Radha Alvarado Age: 41 yrs Sex: Female : 1980 Arrival Date: 11/23/2021 Time: 19:56 Bed 14 Private MD: ED Physician Kashmir Armijo HPI: 11/24 19:34 This 41 yrs old Female presents to ER via Ambulatory with complaints of Chest Pain, kdr Headache, Nausea/Vomiting. 19:34 Patient states that she has been having irregular heart rhythms and palpitations since kdr Monday. She indicated that her pulse and sometimes in the 40s and other times goes to the 180s. Generally few she feels "out of it" and has had some chest discomfort. She has had similar episodes before but not as persistent or severe.. Onset: The symptoms/episode began/occurred Since Monday. Severity of symptoms: At their worst the symptoms were moderate severe just prior to arrival, in the emergency department the symptoms have improved moderately, markedly. The patient has not experienced similar symptoms in the past. The patient has not recently seen a physician. 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 - Social history:: Smoking status: Patient denies any tobacco usage or history of. ROS: 11/24 19:34 Constitutional: Negative for fever, chills, and weight loss, Eyes: Negative for injury, kdr pain, redness, and discharge, ENT: Negative for injury, pain, and discharge, Neck: Negative for injury, pain, and swelling, Respiratory: Negative for shortness of breath, cough, wheezing, and pleuritic chest pain, Abdomen/GI: Negative for abdominal pain, nausea, vomiting, diarrhea, and constipation, Back: Negative for injury and pain, : Negative for injury, bleeding, discharge, and swelling, MS/Extremity: Negative for injury and deformity, Skin: Negative for injury, rash, and discoloration, Psych: Negative for depression, anxiety, suicide ideation, homicidal ideation, and hallucinations, Allergy/Immunology: Negative for hives, rash, and allergies, Endocrine: Negative for neck swelling, polydipsia, polyuria, polyphagia, and marked weight changes, Hematologic/Lymphatic: Negative for swollen nodes, abnormal bleeding, and unusual bruising. Cardiovascular: Positive for chest pain, palpitations, Negative for edema, orthopnea. Neuro: Positive for dizziness, Lightheaded. Exam: 19:34 Constitutional: This is a well developed, well nourished patient who is awake, alert, kdr and in mild distress. Head/Face: Normocephalic, atraumatic. Eyes: Pupils equal round and reactive to light, extra-ocular motions intact. Lids and lashes normal. Conjunctiva and sclera are non-icteric and not injected. Cornea within normal limits. Periorbital areas with no swelling, redness, or edema. Neck: Trachea midline, no thyromegaly or masses palpated, and no cervical lymphadenopathy. Supple, full range of motion without nuchal rigidity, or vertebral point tenderness. No Meningismus. Chest/axilla: Normal chest wall appearance and motion. Nontender with no deformity. No lesions are appreciated. Cardiovascular: Regular rate and rhythm with a normal S1 and S2. No gallops, murmurs, or rubs. Normal PMI, no JVD. No pulse deficits. Respiratory: Lungs have equal breath sounds bilaterally, clear to auscultation and percussion. No rales, rhonchi or wheezes noted. No increased work of breathing, no retractions or nasal flaring. Abdomen/GI: Soft, non-tender, with normal bowel sounds. No distension or tympany. No guarding or rebound. No evidence of tenderness throughout. Back: No spinal tenderness. No costovertebral tenderness. Full range of motion. Skin: Warm, dry with normal turgor. Normal color with no rashes, no lesions, and no evidence of cellulitis. MS/ Extremity: Pulses equal, no cyanosis. Neurovascular intact. Full, normal range of motion. Neuro: Awake and alert, GCS 15, oriented to person, place, time, and situation. Cranial nerves II-XII grossly intact. Motor strength 5/5 in all extremities. Sensory grossly intact. Cerebellar exam normal. Normal gait. Psych: Awake, alert, with orientation to person, place and time. Behavior, mood, and affect are within normal limits. 19:34 ECG was reviewed by the Attending Physician. Vital Signs: 11/23 20:32 BP 112 / 82; Pulse 81; Resp 18; Temp 98.0; Pulse Ox 99% ; Weight 54.43 kg; Height 5 ft. jh5 2 in. (157.48 cm); 22:38 BP 115 / 84; Pulse 69; Resp 18; Pulse Ox 100% on R/A; lg3 23:36 BP 138 / 95; Pulse 75; Resp 19; Pulse Ox 99% on R/A; lg3 23:38 BP 130 / 82; Pulse 73; Resp 17; Pulse Ox 99% on R/A; lg3 20:32 Body Mass Index 21.95 (54.43 kg, 157.48 cm) jh5 MDM: 11/24 00:03 Patient medically screened. kdr 19:37 Data reviewed: vital signs, nurses notes, lab test result(s), radiologic studies. kdr Counseling: I had a detailed discussion with the patient and/or guardian regarding: the historical points, exam findings, and any diagnostic results supporting the discharge/admit diagnosis, lab results, radiology results, the need for outpatient follow up. 11/23 21:14 Order name: Basic Metabolic Panel; Complete Time: 22:59 11/23 21:14 Order name: CBC with Diff; Complete Time: 22:59 11/23 21:14 Order name: PT-INR; Complete Time: 22:59 11/23 21:14 Order name: Troponin HS; Complete Time: 22:59 11/23 21:44 Order name: COVID-19 SARS RT PCR (Document "Date of Onset" if Symptomatic); Complete kdr Time: 23:15 11/23 21:14 Order name: XRAY Chest (1 view); Complete Time: 22:59 11/23 21:14 Order name: EKG; Complete Time: 21:15 11/23 21:14 Order name: Cardiac monitoring; Complete Time: 21:49 11/23 21:34 Order name: CT Head Brain wo Cont; Complete Time: 22:59 kdr 11/23 21:14 Order name: EKG - Nurse/Tech; Complete Time: 21:49 11/23 21:14 Order name: IV Saline Lock; Complete Time: 21:49 11/23 21:14 Order name: Labs collected and sent; Complete Time: 21:49 6 11/23 21:14 Order name: O2 Per Protocol; Complete Time: 21:49 as6 11/23 21:14 Order name: O2 Sat Monitoring; Complete Time: 21:49 6 11/23 23:52 Order name: Misc. Order: Ambulate patient, record VS and report to MD; Complete Time: kdr 00:29 Administered Medications: 11/23 22:14 Drug: NS 0.9% 1000 ml Route: IV; Rate: 1 bolus; Site: right antecubital; 3 11/24 00:31 Follow up: Response: No adverse reaction; IV Status: Completed infusion; IV Intake: lg3 1000ml 11/23 22:14 Drug: Ketorolac 15 mg Route: IVP; Site: right antecubital; 3 22:57 Follow up: Response: No adverse reaction; No change in condition; Pain is unchanged, 3 physician notified 22:57 Drug: morphine 4 mg Route: IVP; Infused Over: 4 mins; Site: left wrist; 3 11/24 00:30 Follow up: Response: No adverse reaction; Marked relief of symptoms 3 11/23 22:57 Drug: Zofran (Ondansetron) 4 mg Route: IVP; Site: left wrist; 3 11/24 00:30 Follow up: Response: No adverse reaction; Marked relief of symptoms 3 Disposition Summary: 11/24/21 00:03 Discharge Ordered Location: Home kdr Problem: new kdr Symptoms: have improved kdr Condition: Stable kdr Diagnosis - Headache kdr - Myalgia kdr - Nausea kdr - Chest pain, unspecified kdr Followup: kdr - With: Private Physician - When: 2 - 3 days - Reason: If symptoms return, Further diagnostic work-up, Recheck today's complaints, Continuance of care, Re-evaluation by your physician Discharge Instructions: - Discharge Summary Sheet kdr - Nausea and Vomiting, Adult, [id number] kdr - Nonspecific Chest Pain, Adult, [id number] kdr - General Headache Without Cause, [id number] kdr Forms: - Medication Reconciliation Form kdr - Thank You Letter kdr Prescriptions: - Zofran 4 mg Oral Tablet - take 1 tablet by ORAL route every 12 hours As needed; 6 tablet; Refills: 0, kdr Product Selection Permitted - Ibuprofen 600 mg Oral Tablet - take 1 tablet by ORAL route every 6 hours As needed take with food; 15 tablet; kdr Refills: 0, Product Selection Permitted Signatures: Dispatcher [employer] Kashmir Hendrickson MD MD kdr Fabiola Sosa, RN RN lg3 Indira Loaiza RN RN jh5 Nimesh Clark RN RN as6
--- NOTE | 2021-11-24 00:05 | ER ---
Nurse's Notes [facility] Name: Radha Alvarado Age: 41 yrs Sex: Female : 1980 Arrival Date: 11/23/2021 Time: 19:56 Bed 14 Private MD: Diagnosis: Headache;Myalgia;Nausea;Chest pain, unspecified Presentation: 11/23 20:32 Chief complaint: Patient states: Monday started having low heart rate into 40's but [facility] it's been jumping from 42 to 188 and I feel out of it. With accompanied chest pains. Coronavirus screen: Vaccine status: Patient reports being unvaccinated. Client denies travel out of the [place] in the last 14 days. Ebola Screen: Patient negative for fever greater than or equal to 101.5 degrees Fahrenheit, and additional compatible Ebola Virus Disease symptoms Patient denies exposure to infectious person. Patient denies travel to an Ebola-affected area in the 21 days before illness onset. Initial Sepsis Screen: Does the patient meet any 2 criteria? No. Patient's initial sepsis screen is negative. Does the patient have a suspected source of infection? No. Patient's initial sepsis screen is negative. Risk Assessment: Do you want to hurt yourself or someone else? Patient reports no desire to harm self or others. Onset of symptoms was November 20, 2021. 20:32 Method Of Arrival: Ambulatory [facility] 20:32 Acuity: TITUS 3 [facility] Triage Assessment: 20:35 General: Appears in no apparent distress. uncomfortable, slender, well groomed, [facility] Behavior is calm, cooperative, appropriate for age, anxious. Pain: Complains of pain in chest. Cardiovascular: Reports chest pain, fatigue, lightheadedness, nausea, palpitations. 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 - Social history:: Smoking status: Patient denies any tobacco usage or history of. Screenin:10 Abuse screen: Denies threats or abuse. Nutritional screening: No deficits noted. jj7 Tuberculosis screening: No symptoms or risk factors identified. Fall Risk None identified. Assessment: 21:10 Pain: Complains of pain in face Pain does not radiate. Pain currently is 6 out of 10 on jj7 a pain scale. Pain began 2-3 days ago. Neuro: Reports headache frontal area. Cardiovascular: Chest pain episodes are intermittent. 22:38 Reassessment:. General: Appears in no apparent distress. uncomfortable, Behavior is lg3 anxious, fussy. Pain: Complains of pain in face, head, chest, bilateral arms, bilateral legs Pain currently is 10 out of 10 on a pain scale. Quality of pain is described as Alleviated by medications. Neuro: No deficits noted. Level of Consciousness is awake, alert, obeys commands, Oriented to person, place, time, situation, Reports headache. Cardiovascular: No deficits noted. Reports chest pain. Respiratory: No deficits noted. Airway is patent Trachea midline Respiratory effort is even, unlabored, Respiratory pattern is regular, symmetrical. GI: No deficits noted. No signs and/or symptoms were reported involving the gastrointestinal system. Abdomen is flat, non-distended. : No deficits noted. No signs and/or symptoms were reported regarding the genitourinary system. EENT: No deficits noted. No signs and/or symptoms were reported regarding the EENT system. Derm: No deficits noted. No signs and/or symptoms reported regarding the dermatologic system. Skin is intact, is healthy with good turgor, Skin is dry, Skin is normal, Skin temperature is warm. Musculoskeletal: No deficits noted. Circulation, motion, and sensation intact. Range of motion: intact in all extremities. 23:35 Reassessment: Patient appears in no apparent distress at this time. No changes from lg3 previously documented assessment. Patient and/or family updated on plan of care and expected duration. Pain level reassessed. Patient states symptoms have improved. 23:37 General: pt ambulated around POD. no complications expressed or noted. . lg3 11/24 00:30 Reassessment: Patient appears in no apparent distress at this time. No changes from lg3 previously documented assessment. Patient and/or family updated on plan of care and expected duration. Pain level reassessed. Patient is alert, oriented x 3, equal unlabored respirations, skin warm/dry/pink. Patient states symptoms have improved. Vital Signs: 11/23 20:32 BP 112 / 82; Pulse 81; Resp 18; Temp 98.0; Pulse Ox 99% ; Weight 54.43 kg; Height 5 ft. jh5 2 in. (157.48 cm); 22:38 BP 115 / 84; Pulse 69; Resp 18; Pulse Ox 100% on R/A; lg3 23:36 BP 138 / 95; Pulse 75; Resp 19; Pulse Ox 99% on R/A; lg3 23:38 BP 130 / 82; Pulse 73; Resp 17; Pulse Ox 99% on R/A; lg3 20:32 Body Mass Index 21.95 (54.43 kg, 157.48 cm) 5 ED Course: 19:56 Patient arrived in ED. jj6 20:35 Triage completed. 5 20:35 Arm band placed on right wrist. 5 20:58 Nimesh Clark, AICHA is Primary Nurse. as6 21:08 Kashmir Armijo MD is Attending Physician. kdr 21:10 Patient has correct armband on for positive identification. Bed in low position. Call jj7 light in reach. Side rails up X 1. Client placed on continuous cardiac and pulse oximetry monitoring. NIBP monitoring applied. 21:10 Inserted saline lock: 20 gauge in right antecubital area, using aseptic technique. jj7 Blood collected. Patient maintains SpO2 saturation greater than 95% on room air. 21:49 Basic Metabolic Panel Sent. jj7 21:49 CBC with Diff Sent. jj7 21:49 PT-INR Sent. jj7 21:49 Troponin HS Sent. jj7 21:55 XRAY Chest (1 view) In Process Unspecified. EDMS 22:14 COVID-19 SARS RT PCR (Document "Date of Onset" if Symptomatic) Sent. lg3 22:21 CT Head Brain wo Cont In Process Unspecified. EDMS 22:38 IV discontinued, intact, bleeding controlled, No redness/swelling at site. Pressure lg3 dressing applied. 22:46 Inserted saline lock: 22 gauge in left wrist, using aseptic technique. ja4 11/24 00:30 No provider procedures requiring assistance completed. lg3 00:36 IV discontinued, intact, bleeding controlled, No redness/swelling at site. Pressure lg3 dressing applied. Administered Medications: 11/23 22:14 Drug: NS 0.9% 1000 ml Route: IV; Rate: 1 bolus; Site: right antecubital; lg3 11/24 00:31 Follow up: Response: No adverse reaction; IV Status: Completed infusion; IV Intake: lg3 1000ml 11/23 22:14 Drug: Ketorolac 15 mg Route: IVP; Site: right antecubital; lg3 22:57 Follow up: Response: No adverse reaction; No change in condition; Pain is unchanged, lg3 physician notified 22:57 Drug: morphine 4 mg Route: IVP; Infused Over: 4 mins; Site: left wrist; lg3 11/24 00:30 Follow up: Response: No adverse reaction; Marked relief of symptoms lg3 11/23 22:57 Drug: Zofran (Ondansetron) 4 mg Route: IVP; Site: left wrist; lg3 11/24 00:30 Follow up: Response: No adverse reaction; Marked relief of symptoms lg3 Medication: 11/23 21:10 VIS not applicable for this client. jj7 Intake: 11/24 00:31 IV: 1000ml; Total: 1000ml. lg3 Outcome: 00:03 Discharge ordered by . kdr 00:31 Discharged to home ambulatory, with family. lg3 00:31 Condition: stable 00:31 Discharge instructions given to patient, Instructed on discharge instructions, follow up and referral plans. medication usage, Demonstrated understanding of instructions, follow-up care, medications, Prescriptions given X 2. 00:51 Patient left the ED. lg3 Signatures: Dispatcher [employer] EDMS Kashmir Armijo MD MD kdr Gibson, Lacie RN RN lg3 Tiffany Nash jj6 Indira Loaiza RN RN jh5 Nimesh Clark RN RN as6 Lucio Coe RN RN ja4 Maria T Erwin RN RN jj7
[2021-11-24 15:21] VITALS: TEMP 98
[2021-11-24 15:25] VITALS: O2SAT 99
[2021-11-24 15:31] VITALS: BP 130/82
--- NOTE | 2021-11-24 17:09 | EKG ---
Test Date: 2021-11-23 Test Time: 20:45:22 [employer]: MEASUREMENT RESULTS: Intervals: Rate: 80 FL: 144 QRSD: 78 QT: 380 QTc: 438 [place]: P: 74 FL: 144 QRS: 82 T: 69 INTERPRETIVE STATEMENTS: Normal sinus rhythm Right atrial enlargement Possible Anterior infarct, age undetermined Abnormal ECG Compared to ECG 11/23/2021 20:44:14 Atrial abnormality now present Myocardial infarct finding still present Electronically Signed On 11-24-21 17:06:43 CDT by Ren Jacobo
--- NOTE | 2021-11-24 17:09 | EKG ---
Test Date: 2021-11-23 Test Time: 20:44:14 Public Policy Manager: MEASUREMENT RESULTS: Intervals: Rate: 74 WI: 144 QRSD: 76 QT: 390 QTc: 432 [place]: P: 65 WI: 144 QRS: 83 T: 63 INTERPRETIVE STATEMENTS: Normal sinus rhythm Cannot rule out Anterior infarct, age undetermined Abnormal ECG Compared to ECG 01/01/2021 12:56:31 Sinus bradycardia no longer present Prolonged QT interval no longer present Myocardial infarct finding still present Electronically Signed On 11-24-21 17:06:43 CDT by Ren Jacobo
== END 2021-11-24 00:51 | disposition home or self-care (01) ==
LOC: ER 19:54
DX: R07.9 Chest pain, unspecified (principal); R51.9 Headache, unspecified; R11.0 Nausea; M79.10 Myalgia, unspecified site; Z20.822 Contact with and (suspected) exposure to COVID-19; Z88.2 Allergy status to sulfonamides
CPT/HCPCS: 36415; 70450; 71045; 80048; 84484; 85025; 85610; 93005; 99284; J2405; J7030; U0003

== ENCOUNTER 2022-04-30 02:01 | Emergency (ER) | payer SELFPAY ==
--- OUTSIDE RECORDS SUMMARY | 2022-04-30 02:16 | XMS REPORT | Continuity of Care Document ---
:1980 Author Organization [facility] t Address [address] [place] [address] Care Team Providers Name Role Phone Cristobal Ward Primary Care Physician Katarzyna Schneider RN Attending Clinician Katherine Portillo LVN Attending Clinician Marcus Rodríguez MD Attending Clinician Doctor Unassigned, [facility] Attending Clinician Unavailable MARCUS RODRÍGUEZ Attending Clinician Unavailable Tish HICKS, Yany Attending Clinician TAMERA HEATH Attending Clinician Unavailable Tamera Haeth DO Attending Clinician CURRY BOBBY Attending Clinician Unavailable Curry Bobby DO Attending Clinician SHASHA PARRISH Attending Clinician Unavailable MARCUS RODRÍGUEZ Admitting Clinician Unavailable TAMERA HEATH Admitting Clinician Unavailable Payers Payer Name Policy Type Policy Number Effective Date Expiration Date S ource Problems Condition Condition Condition Status Onset Resolution Last Treating Co mments Source Name Details Category Date Date Treatment Clinician Date Symptomati Symptomati Disease Active 2021-03 U alpesh carbone 1-30 ity of bradycardi bradycardi 00:00[place] a a 00 Medical Branch Supervisio Supervisio Disease Active 2014-03 U alpesh brito of n of 1-15 ity of high-risk high-risk 00:00: Faustino brito 00 Medi kirsten of elderly of elderly Br anch multigravi multigravi da da History of History of Disease Active 2014-03 U nivers 1-15 ity of delivery, delivery, 00:00: Faustino brito currently currently 00 Medi kirsten Branch Generalize Generalize Disease Active U nivers d anxiety d anxiety 7-24 ity of disorder disorder 00:00: [place] [address] Medical Branch Allergies, Adverse Reactions, Alerts Allergy Allergy Status Severity Reaction(s) Onset Inactive Treating Comm ents Source Name Type Date Date Clinician SULFA Drug Active Hives Univers (SULFONA Class 7-24 ity of MIDE 00:00: [place] ANTIBIOT 00 Medical ICS) Branch Sulfa Propensi Active Hives Univers (Sulfona ty to 7-24 ity of mide adverse 00:00: [place] Antibiot reaction 00 Medica l ics) s Branch Sulfa Propensi Active Hives Univers (Sulfona ty to 7-24 ity of mide adverse 00:00: [place] Antibiot reaction 00 Medica l ics) s Branch Social History Social Habit Start Date Stop Date Quantity Comments Source Exposure to 2022-01-30 2022-02-09 Not sure [facility] SARS-CoV-2 00:00:00 15:12:00 [facility] (event) [place] Tobacco use and 2022-02-09 2022-02-09 Former smokeless Uni versity of exposure 00:00:00 00:00:00 tobacco user [facility] Alcohol intake 2022-02-09 2022-02-09 0 /d University of 00:00:00 00:00:00 [facility] Tobacco Comment 2022-02-09 2022-02-09 Quit recently Univer sity of 00:00:00 00:00:00 [facility] History of 2013-08-03 Cigarette Smoker Universi ty of tobacco use 00:00:00 [facility] Sex Ass[birth year] At [birth year] Universit y of 00:00:00 00:00:00 [facility] Smoking Status Start Date Stop Date Source Ex-smoker 2022-02-09 00:00:00 2022-02-09 00:00:00 Universi ty of [facility] Medications Ordered Filled Start Stop Current Ordering Indication Dosage Frequency Signature Comments Components Source Medication Medication Date Date Medication? Clinician (SIG) Name Name gadobenate 2021-03- No [id number] .2mL/kg 11.4 mL Univers dimeglumine 04-14 (0.2 mL/kg i ty of (MULTIHANCE 18:30: 18:15 ?57 kg), [place] -10 mL) 00 :00 Intravenou Medica l injection s, ONCE, 1 Bran ch 11.4 mL dose, On Mon02/11/22 at 1230, Routine ALPRAZolam 2021-03 Yes 1mg Take 1 mg Un lavell (XANAX) 1 2-02 by mouth 3 ity of mg tablet 16:46: (three) [place] 10 times Medical daily as Branch needed (anxiety). ALPRAZolam 2021-03 Yes 1mg Take 1 mg Un lavell (XANAX) 1 2-02 by mouth 3 ity of mg tablet 16:46: (three) [place] 10 times Medical daily as Branch needed (anxiety). ALPRAZolam 2021-03 Yes 1mg Take 1 mg Un lavell (XANAX) 1 2-02 by mouth 3 ity of mg tablet 16:46: (three) [place] 10 times Medical daily as Branch needed (anxiety). ALPRAZolam 2021-03 Yes 1mg Take 1 mg Un lavell (XANAX) 1 2-02 by mouth 3 ity of mg tablet 16:46: (three) [place] 10 times Medical daily as Branch needed (anxiety). ALPRAZolam 2021-03 Yes 1mg Take 1 mg Un lavell (XANAX) 1 2-02 by mouth 3 ity of mg tablet 16:46: (three) [place] 10 times Medical daily as Branch needed (anxiety). ALPRAZolam 2021-03 Yes 1mg Take 1 mg Un lavell (XANAX) 1 2-02 by mouth 3 ity of mg tablet 16:46: (three) [place] 10 times Medical daily as Branch needed (anxiety). venlafaxine 2021-03 Yes 75mg 75 mg, Univ ers XR (EFFEXOR 2-02 Oral, QAM ity of XR) 24 hr 14:00: WITH [place] capsule 75 00 BREAKFAST, Med ical mg First dose Branch (after last modificati on) on Mon02/11/22 at 0800, Until Discontinu ed, Routine venlafaxine 2021-03- Yes [id number] 75mg Take 1 Univers XR 75 mg 24 04-14 capsule by i ty of hr capsule 00:00: 05:59 mouth [place] 00 :00 daily with Medical breakfast Branch for 30 days. venlafaxine 2021-03- Yes [id number] 75mg Take 1 Univers XR 75 mg 24 04-14 capsule by i ty of hr capsule 00:00: 05:59 mouth [place] 00 :00 daily with Medical breakfast Branch for 30 days. venlafaxine 2021-03- Yes [id number] 75mg Take 1 Univers XR 75 mg 24 04-14 capsule by i ty of hr capsule 00:00: 05:59 mouth [place] 00 :00 daily with Medical breakfast Branch for 30 days. NaCl 0.9% 2021-03 Yes [id number] 250mL at 20 U nivers (NS) IV 2-01 mL/hr, IV ity of infusion 20:15: Infusion, [place] 250 [place] 00 CONTINUOUS Medical , Starting Branch on Irasema 02/10/22 at 1415, Until Discontinu ed, Routine&lt ;br>To keep vein open
perflutren 2021-03- No [id number] 2mL 2 mL, IV Univers lipid 04-13 Push, ity of microsphere 20:00: 20:00 ONCE, 1 [place] :[place] dose, On Medical (DEFINITY) [place] Branch injection 2 02/10/22 at mL 1400, Routine atropine 2021-03- No [id number] 1mg 1 mg, Slow Univers injection 1 04-13 IV Push, ity of mg 20:00: 20:11 ONCE, 1 [place] 00 :00 dose, On Medical Irasema Branch 02/10/22 at 1400, Routine DOBUTamine 2021-03 Yes [id number] 5ug/kg/ 5 Univers (DOBUTREX) 2- min mcg/kg/min ity of 50 mg/50 mL 19:10: ?57.5 kg [place] IV infusion 16 (17.25 Medica l mL/hr), IV Branch Infusion, TITRATE, MAP Goal > or = 65 mmHg, Titrate per admin instructio ns, Starting on Irasema 02/10/22 at 1310
No te and document the precise time that this is 3. ac complished . Begin the count with the EKG system's DSE applicatio n program. This is time zero.&nbsp ; At 2 minutes and 30 seconds after beginning the initial dosing, acquire parasterna l long axis and parasterna l short axis view at papillary level, apical 4 chamber, 2 chamber and apical long axis view, and BP At the 3 minute interval, simultaneo usly obtain a 12 lead EKG, heart rate and 02 saturation and increase the Dobutamine infusion to 10 mcg/kg/min . At the 5 minutes and 30 second interval, acquire parasterna l long axis and parasterna l short&nbsp ;axis view at papillary level, apical 4 chamber, 2 chamber and apical long axis view and measure BP. At the 6 minute interval, simultaneo usly obtain a 12 lead EKG, heart rate and 02saturati on an d increase the Dobutamine infusion to 20 mcg/kg/min . At the 8 minutes and 30 second interval, acquire parasterna l long axis and parasterna l short&nbsp ;axis view at papillary level, apical 4 chamber, 2 chamber and apical long axis view and measure BP. At the 9 minute interval, simultaneo usly obtain a 12 lead EKG, heart rate and 02 saturation and increase the Dobutamine infusion to 30 mcg/kg/min . (see Adjunctive Therapy)&n bsp; At the 11 minutes and 30 second interval, acquire parasterna l long axis and parasterna l short&nbsp ;axis view at papillary level, apical 4 chamber, 2 chamber and apical long axis view and m easure BP. At the 12 minute interval, simultaneo usly obtain a 12 lead EKG, heart rate and 02 saturation and increase the Dobutamine infusion to 40 mcg/kg/min . (see Adjunctive Therapy&nb sp; At the 14 minutes and 30 second interval, acquire parasterna l long axis and parasterna l short&nbsp ;axis view at papillary level, apical 4 chamber, 2 chamber and apical long axis view and m easure BP. At the 15 minute interval, simultaneo usly obtain a 12 lead EKG, heart rate and 02 saturation and terminate the Dobutamine infusion. (see Adjunctive Therapy)<b r> KCL 2021-03 No 20meq 20 mEq, Univers (KLOR-CON 04-13 Oral, ity of M20) tablet 18:15: 17:41 ONCE, 1 [place] 20 mEq 00 :00 dose, On Medical Irasema Branch 02/10/22 at 1215, Routine venlafaxine 2021-03 No 75mg 75 mg, Uni vers (EFFEXOR) 04-13 Oral, ity of tablet 75 15:00: 19:01 DAILY, [place] mg 00 :04 First dose Medical on Irasema Branch 02/10/22 at 0900, Until Discontinu ed, Routine butalbital- 2021-03 Yes [id number] 1{tbl} Take 1 Univers acetaminoph 2-01 tablet by ity of en-caff 00:00: mouth [place] 50-325-40 00 every 4 Medical mg tablet (four) Branch hours as needed for Other (Migraine) . butalbital- 2021-03 Yes [id number] 1{tbl} Take 1 Univers acetaminoph 2-01 tablet by ity of en-caff 00:00: mouth [place] 50-325-40 00 every 4 Medical mg tablet (four) Branch hours as needed for Other (Migraine) . butalbital- 2021-03 Yes [id number] 1{tbl} Take 1 Univers acetaminoph 2-01 tablet by ity of en-caff 00:00: mouth [place] 50-325-40 00 every 4 Medical mg tablet (four) Branch hours as needed for Other (Migraine) . butalbital- 2021-03 Yes [id number] 1{tbl} Take 1 Univers acetaminoph 2-01 tablet by ity of en-caff 00:00: mouth [place] 50-325-40 00 every 4 Medical mg tablet (four) Branch hours as needed for Other (Migraine) . butalbital- 2021-03 Yes [id number] 1{tbl} Take 1 Univers acetaminoph 2-01 tablet by ity of en-caff 00:00: mouth [place] 50-325-40 00 every 4 Medical mg tablet (four) Branch hours as needed for Other (Migraine) . butalbital- 2021-03 Yes [id number] 1{tbl} Take 1 Univers acetaminoph 2-01 tablet by ity of en-caff 00:00: mouth [place] 50-325-40 00 every 4 Medical mg tablet (four) Branch hours as needed for Other (Migraine) . butalbital- 2021-03 Yes 1{tbl} 1 tablet, Univers acetaminoph 1-30 Oral, ity of en-caff 20:50: Q4HPRN, [place] (ESGIC) 03 Starting Medical 50-325-40 on Mon Branch mg tablet 1 02/09/22 tablet at 1450, Until Discontinu ed, Routine, Pain (scale 4-6), headache heparin 2021-03 Yes 5000U 5,000 Univers (porcine) 1-30 Units, ity of injection 14:00: Subcutaneo [place] 5,000 Units 00 us, Q12H, Med ical First dose Branch on Mon02/09/22 at 0800, Until Discontinu ed, Routine ALPRAZolam 2021-03 Yes 1mg 1 mg, Univer s (XANAX) 1-30 Oral, ity of tablet 1 mg 10:51: TIDPRN, Lit as 31 Starting Medical on Mon Branch 02/09/22 at 0451, Until Discontinu ed, Routine, Anxiety ibuprofen 2021-03 Yes 400mg 400 mg, Univ ers (MOTRIN IB) 1-30 Oral, ity of tablet 400 10:46: Q6HPRN, [place] mg 22 Starting Medical on Mon Branch 02/09/22 at 0446, Until Discontinu ed, Routine, Alternate with Tylenol for Headace ondansetron 2021-03 Yes 4mg 4 mg, Slow Univers (ZOFRAN 1-30 IV Push, ity of (PF)) 10:20: Q6HPRN, [place] injection 4 41 Starting Medi kirsten mg on Mon Branch 02/09/22 at 0420, Until Discontinu ed, Routine, Nausea and Vomiting (N/V) acetaminoph 2021-03 No 650mg 650 mg, U nivers en 04-11 Oral, ity of (TYLENOL) 10:20: 10:56 Q6HPRN, [place] tablet 650 36 :32 Starting Medic al mg on Mon02/09/22 at 0420, Until Mon02/09/22 at 0456, Routine, Pain (scale 1-3) ketorolac 2021-03 No 30mg 30 mg, Unive rs (TORADOL) 04-11 Slow IV ity of injection 03:45: 03:04 Push, [place] 30 mg 00 :00 ONCE, 1 Medical dose, On Mon02/08/22 at 2145, MARTY NaCl 0.9% 2021-03 No 1000mL at 999 Uni vers (NS) bolus 04-11 mL/hr, ity of infusion 03:30: 04:00 1,000 mL, Lit as 1,000 mL 00 :00 IV Medical Infusion, Branch ONCE, 1 dose, On Mon02/08/22 at 2130, MARTY diphenhydrA 2021-03 No 25mg 25 mg, Uni vers MINE 04-11 Slow IV ity of (BENADRYL) 03:00: 03:04 Push, [place] injection 00 :00 ONCE, 1 Medical 25 mg dose, On Mon02/08/22 at 2100, STAT metoclopram 2021-03 No 10mg 10 mg, Uni vers shine HCl 04-11 Slow IV ity of (REGLAN) 03:00: 03:04 Push, [place] injection 00 :00 ONCE, 1 Medical 10 mg dose, On Mon02/08/22 at 2100, MARTY NaCl 0.9% 2021-03 No 1000mL at 999 Uni vers (NS) bolus 04-09- mL/hr, ity of infusion 03:00: 05:17 1,000 mL, Lit as 1,000 mL 00 :00 IV Medical Infusion, Branch ONCE, 1 dose, On Mon02/06/22 at 2100, MARTY ketorolac 2021-03 No 30mg 30 mg, Unive rs (TORADOL) 1-28 11-28 Slow IV ity of injection 02:15: 03:51 Push, [place] 30 mg 00 :00 ONCE, 1 Medical dose, On Branch 02/06/22 at 2015, MARTY 2014-03 Yes [id number] 1{tbl} Take 1 Tab Univers multivitami 1-12 by mouth ity of n ( 00:00: daily. [place] VITAMIN) 00 Medical tablet Branch 2014-03 Yes [id number] 1{tbl} Take 1 Tab Univers multivitami 1-12 by mouth ity of n ( 00:00: daily. [place] VITAMIN) 00 Medical tablet Branch 2014-03 Yes [id number] 1{tbl} Take 1 Tab Univers multivitami 1-12 by mouth ity of n ( 00:00: daily. [place] VITAMIN) 00 Medical tablet Branch 2014-03- No [id number] 1{tbl} Take 1 Tab Univers multivitami 1-12 11-30 by mouth ity of n ( 00:00: 00:00 daily. Lit as VITAMIN) 00 :00 [facility] Immunizations Ordered Filled Immunization Date Status Comments [facility] Immunization Name Name Pneumococcal 20 2022-02-11 Completed Universit y of Conjugate, PCV20 00:00:00 [facility] dical (Prevnar 20) [place] Influenza Virus 2022-02-11 Completed Universit y of Vaccine Quad IM, 00:00:00 [facility] dical Preserv and ABX Branch Free 6 MO-64 YRS Pneumococcal 20 2022-02-11 Completed Universit y of Conjugate, PCV20 00:00:00 [facility] dical (Prevnar 20) [place] Influenza Virus 2022-02-11 Completed Universit y of Vaccine Quad IM, 00:00:00 [facility] dical Preserv and ABX Branch Free 6 MO-64 YRS Pneumococcal 20 2022-02-11 Completed Universit y of Conjugate, PCV20 00:00:00 [facility] dical (Prevnar 20) [place] Influenza Virus 2022-02-11 Completed Universit y of Vaccine Quad IM, 00:00:00 [facility] dical Preserv and ABX Branch Free 6 MO-64 YRS Pneumococcal 20 2022-02-11 Completed Universit y of Conjugate, PCV20 00:00:00 [facility] dical (Prevnar 20) [place] Influenza Virus 2022-02-11 Completed Universit y of Vaccine Quad IM, 00:00:00 [facility] dical Preserv and ABX Branch Free 6 MO-64 YRS Pneumococcal 20 2022-02-11 Completed Universit y of Conjugate, PCV20 00:00:00 [facility] dical (Prevnar 20) Branch Influenza Virus 2022-02-11 Completed Universit y of Vaccine Quad IM, 00:00:00 [facility] dical Preserv and ABX Branch Free 6 MO-64 YRS Pneumococcal 20 2022-02-11 Completed Universit y of Conjugate, PCV20 00:00:00 [facility] dical (Prevnar 20) Branch Influenza Virus 2022-02-11 Completed Universit y of Vaccine Quad IM, 00:00:00 [facility] dical Preserv and ABX Branch Free 6 MO-64 YRS Influenza Virus 2015-01-22 Completed Universit y of Vaccine Quad IM 3+ 00:00:00 [facility] Influenza Virus 2015-01-22 Completed Universit y of Vaccine Quad IM 3+ 00:00:00 [facility] Influenza Virus 2015-01-22 Completed Universit y of Vaccine Quad IM 3+ 00:00:00 [facility] Influenza Virus 2015-01-22 Completed Universit y of Vaccine Quad IM 3+ 00:00:00 [facility] Influenza Virus 2015-01-22 Completed Universit y of Vaccine Quad IM 3+ 00:00:00 [facility] Influenza Virus 2015-01-22 Completed Universit y of Vaccine Quad IM 3+ 00:00:00 [facility] Influenza Virus 2015-01-22 Completed Universit y of Vaccine Quad IM 3+ 00:00:00 [facility] Influenza Virus 2015-01-22 Completed Universit y of Vaccine Quad IM 3+ 00:00:00 [facility] Influenza Virus 2015-01-22 Completed Universit y of Vaccine Quad IM 3+ 00:00:00 [facility] Td 2011-10-04 Completed University of 00:00:00 [facility] Td 2011-10-04 Completed University of 00:00:00 [facility] Td 2011-10-04 Completed University of 00:00:00 [facility] Td 2011-10-04 Completed University of 00:00:00 [facility] TD, NOS 2011-10-04 Completed University of 00:00:00 [facility] TD, NOS 2011-10-04 Completed University of 00:00:00 [facility] Branch TD, NOS 2011-10-04 Completed University of 00:00:00 [place] [facility] Td 2011-10-04 Completed University of 00:00:00 [place] [facility] Td 2011-10-04 Completed University of 00:00:00 [facility] Vital Signs Vital Name Observation Time Observation Value Comments Source Systolic blood 2022-02-11 17:24:00 126 mm[Hg] Univer sity of pressure [place] [facility] Diastolic blood 2022-02-11 17:24:00 76 mm[Hg] Unive rsity of pressure [place] [facility] Heart rate 2022-02-11 17:24:00 68 /min Universi ty of [place] [facility] Body temperature 2022-02-11 17:24:00 37.28 Kelsey Univ ersity of [place] [facility] Respiratory rate 2022-02-11 17:24:00 18 /min Univ ersity of [place] [facility] Oxygen saturation in 2022-02-11 17:24:00 95 /min University of Arterial blood by [place] Pax[employer] Pulse oximetry Branch Body weight 2022-02-11 10:08:00 57.017 kg Universi ty of [place] [facility] BMI 2022-02-11 10:08:00 22.99 kg/m2 Universi ty of [place] [facility] Body height 2022-02-10 19:27:00 157.5 cm Universi ty of [place] [facility] Systolic blood 2022-02-07 05:00:00 133 mm[Hg] Univer sity of pressure [place] [facility] Diastolic blood 2022-02-07 05:00:00 81 mm[Hg] Unive rsity of pressure [place] [facility] Heart rate 2022-02-07 05:00:00 66 /min Universi ty of [place] [facility] Respiratory rate 2022-02-07 05:00:00 13 /min Univ ersity of [place] [facility] Oxygen saturation in 2022-02-07 05:00:00 99 /min University of Arterial blood by Purple [employer] Bo kirsten Pulse oximetry Branch Body temperature 2022-02-07 01:54:00 36.83 Kelsey Univ ersity of [place] [facility] Body height 2022-02-07 01:54:00 157.5 cm Universi ty of [place] [facility] Body weight 2022-02-07 01:54:00 56.7 kg Universi ty of [place] [facility] BMI 2022-02-07 01:54:00 22.86 kg/m2 [facility] Systolic blood 2021-01-16 00:55:00 128 mm[Hg] [facility] Diastolic blood 2021-01-16 00:55:00 88 mm[Hg] [facility] Heart rate 2021-01-16 00:55:00 86 /min [facility] Body temperature 2021-01-16 00:55:[address] [facility] Respiratory rate 2021-01-16 00:55:00 18 /min [facility] Body height 2021-01-16 00:55:00 157.5 cm [facility] Body weight 2021-01-16 00:55:00 53.978 kg [facility] BMI 2021-01-16 00:55:00 21.77 kg/m2 [facility] Oxygen saturation in 2021-01-16 00:55:00 99 /min [facility] Arterial blood by [facility] Pulse oximetry Branch Procedures Procedure Date / Time Performing Clinician Source Performed EXTERNAL PROVIDER RECORDS 2022-03-01 06:01:00 Doctor Unassigned, [facility] Vaiva Vo [facility] MR BRAIN W WO CONTRAST 2022-02-11 18:24:00 Jelly Manjarrez [facility] COMPLETE ECHOCARDIOGRAM 2022-02-10 20:44:31 Татьяна Fonseca [facility] DOBUTAMINE STRESS TEST W [facility] [place] CONTRAST BASIC METABOLIC PANEL 2022-02-10 14:38:00 Jelly Manjarrez [facility] (NA, K, CL, CO2, GLUCOSE, Medica l Branch BUN, CREATININE, CA) MAGNESIUM 2022-02-09 10:40:00 Rony Apple [facility] TROPONIN I 2022-02-09 10:40:00 Apple, [facility] THYROID STIMULATING 2022-02-09 10:40:00 Yany Winston [facility] HORMONE [facility] CT HEAD WO CONTRAST 2022-02-09 03:41:00 Yany Winston [facility] XR LUMBAR SPINE 2 VW 2022-02-09 03:31:22 Yany Winston [facility] SPINE THORACIC 2 VW 2022-02-09 03:31:22 [facility], SERUM 2022-02-09 02:56:00 Yany Winston [facility] TROPONIN I 2022-02-09 02:56:00 Yany Winston [facility] BASIC METABOLIC PANEL 2022-02-09 02:56:00 Yany Winston [facility] (NA, K, CL, CO2, GLUCOSE, Medica l Branch BUN, CREATININE, CA) CBC WITH DIFF 2022-02-09 02:56:00 Yany Winston [facility] CONSENT/REFUSAL FOR 2022-02-09 01:36:09 Doctor Ramona [facility] DIAGNOSIS AND TREATMENT [facility] [place] TROPONIN I 2022-02-07 03:49:00 Tamera Heath [facility] COMP. METABOLIC PANEL 2022-02-07 03:49:00 Tamera Heath [facility] ([id number]) Medical [place] CBC WITH DIFF 2022-02-07 03:49:00 Tamera Heath [facility] XR CHEST 1 VW 2022-02-07 03:38:39 Tamera Heath [facility] NOTICE OF PRIVACY 2022-02-07 01:42:03 Doctor Ramona, [facility] PRACTICES Vaiva Vo Medical Branch CONSENT/REFUSAL FOR 2022-02-07 01:40:46 Doctor Ramona [facility] DIAGNOSIS AND TREATMENT [facility] [place] CONSENT/REFUSAL FOR 2021-01-16 00:48:25 Doctor Ramona [facility] DIAGNOSIS AND TREATMENT [facility] [place] NOTICE OF PRIVACY 2021-01-16 00:47:51 Doctor Ramona, [facility] PRACTICES [facility] Vo Medical Branch Encounters Start End Encounter Admission Attending Care Care Encounter Source Date/Time Date/Time Type Type Clinicians Facility Department ID 2022-04-22 2022-04-22 Patient Katarzyna Schneider [id number] Univers 00:00:00 00:00:00 Outreach E MUNOZ [id number] i ty [place] [id number] [facility] 403 Branch 2022-04-06 2022-04-06 Transition ROBY Portillo [id number] Univers 00:00:00 00:00:00 of Care Katherine MUNOZ [id number] [place]y [place] [id number] [facility] 403 Branch 2022-04-05 2022-04-05 Telephone VASILIY Rodríguez [id number] Univers 00:00:00 00:00:00 Amer HEALTH [id number] it y of [place]2.[place] [id number] [address] OFFICE BUILDING 2022-03-01 2022-03-01 Orders Doctor SHASHA [id number] Univers 00:00:00 00:00:00 Only Unassigned, [place] [id number] ity of Vaiva Vo [facility] [id number] Lit as [id number] [place] [address] Branch 2022-02-19 2022-02-19 Telephone ARUNA Rodríguez [id number] Univers 00:00:00 00:00:00 Amer Y HEALTH [id number] i ty of [id number] [id number] [address] 2022-02-08 2022-02-11 Outpatient X MARCUS RODRÍGUEZ [facility] 1 [id number] Univers 19:37:00 16:45:00 MARCUS RODRÍGUEZ ity of [facility] 2022-02-08 2022-02-11 [facility], Yany DARBY [id number] Univers 19:37:00 16:45:00 Marcus Rodríguez [id number] ity of [facility] [id number] Lit as [id number] [facility] 090 [place] 2022-02-06 2022-02-06 Emergency X KUMAR [facility] ERT [id number] Univers 19:57:00 23:19:[address] [facility] 2022-02-06 2022-02-06 [facility] [id number] Univers 19:57:00 23:19:00 Tamera Arpti HERNANDEZ [id number] ity [facility] [id number] [facility] [id number] [address] 2021-01-15 2021-01-15 Emergency X SINGER [facility] ERT [id number] Univers 19:59:00 20:38:[address] [facility] 2021-01-15 2021-01-15 Emergency [facility] [id number] Univers 19:59:00 20:38:00 Curry HERNANDEZ [id number] i ty [facility] [id number] [facility] [id number] [place] [id number] [place] 2021-01-15 2021-01-15 Orders Doctor SHASHA [id number] Univers 00:00:00 00:00:00 Only Unassigned, SILVIA 350.1.13.10 ity of [facility] [id number] Lit as [phone] [facility] [address] 2020-01-30 2020-01-30 Outpatient R SHIVANI [facility] [id number] Univers 18:20:00 18:20:[address] [facility] Results Test Description Test Time Test Comments Results Result Comments Source Echocardiogram dobutamine stress test 2022-02-10 23:32:51 Test Item Value Reference Range Interpretation Comme nts Height (test code = 8788399064) in Weight (test code = 6350257091) lbs Systolic BP (test code = 9875878760) mmHg Diastolic BP (test code = mmHg 9057061471) Heart Rate (test code = 7805082345) bpm IVS (test code = 1562553155) 0.64 cm Interventricular Septum Diastolic 0.64 cm Thickness by 2D (test code = 3012330) LVIDD (test code = 1900046054) 4.70 cm Left Ventricular End Diastolic 104.8 mL Volume by Teichholz Method (test code = 5691613) LVPWD (test code = 1623954480) 0.77 cm PW (test code = 6886383592) 0.77 cm 0.6-1.1 EF(Teich) (test code = 1937877186) 67.50 % LVIDS (test code = 9101922678) 3.00 cm Left Ventricular End Systolic Volume 34.1 mL by Teichholz Method (test code = 4566182) FS (test code = 8262329711) 38 % EF - 2D (test code = 50548245) 67.50 % LVOT diameter (test code = 1.74 cm 6317176814) LVOT area (test code = 8470190042) 2.39 cm2 BSA (test code = 4598401248) 1.57 m2 LAV(MOD-sp4) (test code = 35.70 mL 7163373367) MV Peak E Ras (test code = 111.6 cm/s 7317949667) MV Peak A Ras (test code = 56.8 cm/s 5204928016) E/A ratio (test code = 7794715140) ratio E wave decelartion time (test code = 0.26 s 9758937542) LVOT peak ras (test code = 153.6 cm/s 3310798592) AV LVOT peak gradient (test code = mmHg 6809070346) LVOT stroke volume (test code = 80.70 cm3 3881436220) LVOT mn grad (test code = mmHg 4217527268) LVOT peak VTI (test code = 33.8 cm 0161887451) LV V1 mean (test code = 2236298583) 90.60 cm/s Ao peak ras (test code = 8258870342) 152.0 cm/s AV area peak ras (test code = 2.4 cm2 1960495867) Ao max PG (test code = 7454683431) 9.20 mm[Hg] AV peak gradient (test code = mmHg 4576297043) LA Volume Index (BP) (test code = 26.9 mL/m2 2515214963) LA volume (BP) (test code = 42.2 mL 1576921047) LAV(MOD-sp2) (test code = 51.60 mL 4310461406) Base ST Depresion (mm) (test code = 0 mm 4288888433) Radiology Study observation (narrative) (test code = 12285-4) ENRIQUE (test code = ENRIQUE) Table formatting from the original result was not included. ?Stress?ECG: Sinus tachycardia. ?[address] depression in II, III, aVF and V3-V6 There were no arrhythmias during stress. There were no arrhythmias during recovery. ?Post-stress?Impression: Adequate hemodynamic response, adequate inotropic response, adequate chronotropic response and negative stress echocardiography study for inducible ischemia. ?Post-stress: The post-stress echo shows appropriate increased thickness to all myocardial segments and no wall motion abnormalities noted. The left ventricle systolic function is hyperdynamic post-stress. The post-stress echo showed normal wall motion. ?Left?Ventricle: Left ventricle is normal in size and function. Normal wall thickness. Septal motion is normal. . Normal systolic function with a visually estimated EF of 55 - 60%. Normal diastolic function. Mary Talamantes MD Stress ResultsProtocol: DSE Maximum Predicted HR: 178 Target HR: 151 % Maximum Predicted HR: 86 Stage Duration (mm:ss) Heart Rate (bpm) BP Dose Comment Baseline ?71 97/56 ?Definity Peak 11:37 155 122/61 30 0.25 Atropine Recovery 4 4:00 135 123/66 ? ?Recovery 10 10:00 104 112/62 ? ?Add'l Recovery 10:23 99 97/52 ? ?Stress Duration: 11:37 Recovery Time: 20:23 Maximum Stress HR: 155 ? Left VentricleLeft ventricle is normal in size and function. Normal wall thickness. Septal motion is normal. . Normal systolic function with a visually estimated EF of 55 - 60%. Normal diastolic function.Right VentricleRight ventricle is normal in size and function. Normal wall thickness. Normal systolic function.Left AtriumLeft atrium size is normal.Right AtriumRight atrium size is normal.IVC/SVCIVC normal in size and respiratory variation.Mitral ValveMitral valve is normal in structure and function. Trace transvalvular regurgitation. No stenosis.Tricuspid ValveTricuspid valve is normal size and function. Insufficient tricuspid regurgitation jet to estimate RVSP, but probably normal.Trace transvalvular regurgitation. RA pressure is 0-5 mmHg. No stenosis.Aortic ValveAortic valve is normal in structure and function.Pulmonic ValvePulmonic valve is normal in structure and function.PericardiumThe pericardium is normal. No pericardial effusion.Study DetailsStudy quality was adequate. A Dobutamine stress echocardiogram was performed using 2D, color flow Doppler and spectral Doppler. 2 mL of Definity ultrasound enhancing agent used. AICHA RocaResting ECGNormal sinus rhythm. Resting ECG shows no ST-segment deviation.Stress FindingsA pharmacological stress test was performed using dobutamine. The patient reported no symptoms during the stress test. Blood pressure demonstrated a normal response and heart rate demonstrated a normal response to stress. The patient's heart rate recovery was normal.Stress ECGSinus tachycardia. [address] depression in II, III, aVF and V3-V6 There were no arrhythmias during stress. There were no arrhythmias during recovery.Echo Post StressThe post-stress echo shows appropriate increased thickness to all myocardial segments and no wall motion abnormalities noted. The left ventricle systolic function is hyperdynamic post-stress. The post-stress echo showed normal wall motion.Study ImpressionAdequate hemodynamic response, adequate inotropic response, adequate chronotropic response and negative stress echocardiography study for inducible ischemia.Wall Scoring BaselineScore Index: 1.00The left ventricular wall motion is normal.Wall Scoring Low DoseScore Index: 1.00The left ventricular wall motion is normal.Wall Scoring Peak DoseScore Index: 1.00The left ventricular wall motion is globally hyperkinetic.Wall Scoring RestingScore Index: 1.00The left ventricular wall motion is normal. [id number] 04:32:51 Test Item Value Reference Interpretation Comments Range TROPONIN I (test 0.001 ng/mL See_Comment [Automated code = 8799185134) message] The system which generated this result transmitted reference range : <=0.034. The reference range was not used to interpret this result as normal/abnormal . ENRIQUE (test code = Reference (Normal) ENRIQUE) Range (defined by the 99th percentile reference limit): <= 0.034 ng/mL Note: Cardiac troponin begins to rise 3-4 hours after the onset of ischemia. Repeat in 4-6 hours if the sample was drawn within 3-4 hours of the onset of the symptom and found normal. Diagnosis of myocardial injury is made with acute changes in cTn concentrations with at least one serial sample above the 99th percentile upper reference limit (URL), taken together with the patient's clinical presentation. Biotin has been reported to cause a negative bias, interpret results relative to patient's use of biotin. Lab Interpretation Normal (test code = 20596-4) [facility]. METABOLIC PANEL (38596)2022-02-07 04:21:09 Test Item Value Reference Range Interpretation Comments NA (test code = 138 mmol/L 135-145 1534398284) K (test code = 4.3 mmol/L 3.5-5.0 6923983459) CL (test code = 104 mmol/L 98-108 0078260732) CO2 TOTAL (test code 28 mmol/L 23-31 = 7679407680) AGAP (test code = 2-16 6214239745) BUN (test code = 12 mg/dL 7-23 7810171698) GLUCOSE (test code = 95 mg/dL 70-110 1968582247) CREATININE (test code 0.88 mg/dL 0.50-1.04 = 3256050972) TOTAL BILI (test code 0.4 mg/dL 0.1-1.1 = 2320083535) CALCIUM (test code = 8.9 mg/dL 8.6-10.6 3005742884) T PROTEIN (test code 7.2 g/dL 6.3-8.2 = 5315137133) ALBUMIN (test code = 4.6 g/dL 3.5-5.0 9915533380) ALK PHOS (test code = 58 U/L 34-122 0999512838) ALTv (test code = 18 U/L 5-35 1742-6) AST(SGOT) (test code 25 U/L 13-40 = 5447291565) eGFR (test code = mL/min/1.73m2 0060280959) ENRIQUE (test code = ENRIQUE) Association of Glomerular Filtration Rate (GFR) and Staging of Kidney Disease* + + +- +| GFR (mL/min/1.73 m2) ?| With Kidney Damage ?| ?Without Kidney Damage+ ------+ ----+ ------+| ?>90 ?| ?Stage one ?| ? Normal ?+ -+ + -+| ?60-89 ?| ?Stage two ?| ? Decreased GFR ? + + +- +| ?30-59 ?| ?Stage three ?| ? Stage three ? + + +- +| ?15-29 ?| ?Stage four ? | ? Stage four ?+ -+ + -+| ?<15 (or dialysis) ? ?| ?Stage five ? | ? Stage five ?+ -+ + -+ *Each stage assumes the associated GFR level has been in effect for at least three months. ?Stages 1 to 5, with or without kidney disease, indicate chronic kidney disease. Notes: Determination of stages one and two (with eGFR >59mL/min/1.73 m2) requires estimation of kidney damage for at least three months as defined by structural or functional abnormalities of the kidney, manifested by either:Pathological abnormalities or Markers of kidney damage (including abnormalities in the composition of the blood or urine or abnormalities in imaging tests). [facility] WITH [id number] 04:10:30 Test Item Value Reference Range Interpretation Comments WBC (test code = See_Comment [Automated 2190-2) message] The sy stem which generated this result transmitted reference range : 4.30 - 11.10 10*3/?L. The reference range was not used to interpret this result as normal/abnormal . RBC (test code = See_Comment [Automated 549-8) message] The sy stem which generated this result transmitted reference range : 3.93 - 5.25 10*6/?L. The reference range was not used to interpret this result as normal/abnormal . HGB (test code = 12.4 g/dL 11.6-15.0 718-7) HCT (test code = 38.2 % 35.7-45.2 4544-3) MCV (test code = 90.7 fL 80.6-95.5 787-2) MCH (test code = 29.5 pg 25.9-32.8 785-6) MCHC (test code = 32.5 g/dL 31.6-35.1 786-4) RDW-SD (test code = 42.0 fL 39.0-49.9 20395-2) RDW-CV (test code = 12.7 % 12.0-15.5 788-0) PLT (test code = See_Comment [Automated 777-3) message] The sy stem which generated this result transmitted reference range : 166 - 358 10*3/ ?L. The reference r yudi was not used to interpret this result as normal/abnormal . MPV (test code = 9.7 fL 9.5-12.9 71591-1) NRBC/100 WBC (test See_Comment [Automat ed code = 1451179626) message] The system which generated this result transmitted reference range : 0.0 - 10.0 /100 WBCs. The refer ence range was not u sed to interpret th is result as normal/abnormal . NRBC x10^3 (test code See_Comment [Auto mated = 9227603113) message] The s ystem which generated this result transmitted reference range : 10*3/?L. The reference range was not used to interpret this result as normal/abnormal . GRAN MAT (NEUT) % 66.4 % (test code = 770-8) IMM GRAN % (test code 0.30 % = 6129922119) LYMPH % (test code = 23.2 % 736-9) MONO % (test code = 6.3 % 5905-5) EOS % (test code = 3.0 % 713-8) BASO % (test code = 0.8 % 706-2) GRAN MAT x10^3(ANC) 6.49 10*3/uL 1.88-7.09 (test code = 6834862814) IMM GRAN x10^3 (test 0.03 10*3/uL 0.00-0.06 code = 1363480549) LYMPH x10^3 (test code 2.26 10*3/uL 1.32-3.29 = 731-0) MONO x10^3 (test code 0.61 10*3/uL 0.33-0.92 = 742-7) EOS x10^3 (test code = 0.29 10*3/uL 0.03-0.39 711-2) BASO x10^3 (test code 0.08 10*3/uL 0.01-0.07 H = 704-7) Lab Interpretation Abnormal (test code = 34161-2) [facility]"
[2022-04-30] MEDS ORDERED: HYDROCODONE/APAP 5/325 MG TAB ONE (03:37)
--- NOTE | 2022-04-30 05:59 | ER ---
Nurse's Notes [facility] Name: Radha Alvarado Age: 41 yrs Sex: Female : 1980 Arrival Date: 04/30/2022 Time: 02:04 Bed 13 Private MD: Diagnosis: Pain in left wrist Presentation: 04/30 02:42 Chief complaint: Patient states: she tried to break up her dogs fighting earlier bb tonight and fell injuring her left wrist she also received some bites. Coronavirus screen: At this time, the client does not indicate any symptoms associated with coronavirus-19. Ebola Screen: No symptoms or risks identified at this time. Initial Sepsis Screen: Does the patient meet any 2 criteria? No. Patient's initial sepsis screen is negative. Does the patient have a suspected source of infection? No. Patient's initial sepsis screen is negative. Risk Assessment: Do you want to hurt yourself or someone else? Patient reports no desire to harm self or others. Onset of symptoms was April 30, 2022. 02:42 Method Of Arrival: Ambulatory bb 02:42 Acuity: TITUS 3 bb Triage Assessment: 03:35 Pain: Complains of pain in left wrist Pain currently is 6 out of 10 on a pain scale. at ke1 worst was 6 out of 10 on a pain scale. level that patient reports is acceptable is 2 out of 10 on a pain scale. 03:36 General: Appears in no apparent distress. uncomfortable, Behavior is appropriate for ke1 age. 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 - Social history:: Smoking status: Patient denies any tobacco usage or history of. Screenin:48 [facility] ED Fall Risk Assessment (Adult) History of falling in the last 3 months, ke1 including since admission No falls in past 3 months (0 pts) Confusion or Disorientation No (0 pts) Intoxicated or Sedated No (0 pts) Impaired Gait No (0 pts) Mobility Assist Device Used No (0 pt) Altered Elimination No (0 pt) Score/Fall Risk Level 0 - 2 = Low Risk. Abuse screen: Denies threats or abuse. Nutritional screening: No deficits noted. Tuberculosis screening: No symptoms or risk factors identified. Assessment: 03:48 Reassessment: Patient is alert, oriented x 3, equal unlabored respirations, skin ke1 warm/dry/pink. 05:32 Reassessment: No changes from previously documented assessment. Patient states feeling ke1 better. Patient states symptoms have improved. 06:05 Reassessment: No changes from previously documented assessment. ke1 Vital Signs: 02:42 BP 133 / 73; Pulse 83; Resp 16 S; Temp 98.4(O); Pulse Ox 99% on R/A; Weight 61.23 kg bb (R); Height 5 ft. 2 in. (157.48 cm) (R); Pain 8/10; 04:30 Pain 1/10; ke1 06:04 BP 117 / 66; Pulse 70; Resp 17; Temp 98.3; Pulse Ox 98% on R/A; Pain 2/10; ke1 02:42 Body Mass Index 24.69 (61.23 kg, 157.48 cm) ED Course: 02:04 Patient arrived in ED. jj6 02:49 Triage completed. bb 02:49 Arm band placed on Patient placed in an exam room, on a stretcher. Family accompanied bb patient. 03:04 Brian Gonzalez PA is PHCP. cp 03:04 Lauren Rivero MD is Attending Physician. cp 03:30 Nuria Osborn, AICHA is Primary Nurse. ke1 03:48 Bed in low position. ke1 04:15 XRAY Wrist LEFT 3 view In Process Unspecified. EDMS 06:19 No provider procedures requiring assistance completed. Patient did not have IV access ke1 during this emergency room visit. Administered Medications: 03:36 Drug: HYDROcodone-acetaminophen 5 mg-325 mg 1 tabs Route: PO; ke1 04:30 Follow up: Pain 1/10 Adult; Response: Pain is decreased ke1 Medication: 06:20 VIS not applicable for this client. ke1 Outcome: 05:58 Discharge ordered by . sd2 06:20 Discharged to home ambulatory. ke1 06:20 Condition: good 06:20 Discharge instructions given to patient. 06:20 Patient left the ED. ke1 Signatures: Dispatcher [employer] Kayla eLos RN RN Brian Cotto PA PA cp Jeffries, Jennifer jj6 Ebrottie, Kouassi, RN RN ke1 Lauren Rivero MD MD sd2 Corrections: (The following items were deleted from the chart) 03:36 03:35 Pain: Complains of pain in left wrist ke1 ke1
--- NOTE | 2022-04-30 05:59 | EDPHYS ---
Physician Documentation [facility] Name: Radha Alvarado Age: 41 yrs Sex: Female : 1980 Arrival Date: 04/30/2022 Time: 02:04 Bed 13 Private MD: ED Physician Lauren Rivero HPI: 04/30 03:38 This 41 yrs old Female presents to ER via Ambulatory with complaints of Fall Injury, sd2 Wrist Pain, Hand Pain. 03:38 41-year-old female presents with chief complaint of a fall while trying to break up a sd2 fight between her 2 dogs. She reports she is unsure whether or not she was bitten on her wrist but did wash out the areas appropriately. She also reports pain to the left wrist area with limited range of motion secondary to the pain.. 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 - Social history:: Smoking status: Patient denies any tobacco usage or history of. ROS: 03:38 Constitutional: Negative for fever, chills, and weight loss, Eyes: Negative for injury, sd2 pain, redness, and discharge, ENT: Negative for injury, pain, and discharge, Back: Negative for injury and pain, MS/Extremity: Negative for injury and deformity, Skin: Negative for injury, rash, and discoloration. Exam: 03:38 Constitutional: This is a well developed, well nourished patient who is awake, alert, sd2 and in no acute distress. Head/Face: Normocephalic, atraumatic. Eyes: EOMI, normal conjunctiva bilaterally Skin: Warm, dry with normal turgor. Normal color with no rashes, no lesions, and no evidence of cellulitis. MS/ Extremity: Pulses equal, no cyanosis. Neurovascular intact. Limited ROM of L wrist 2/2 pain, 2+ RP, sensation intact, able to move all fingers appropriately Vital Signs: 02:42 BP 133 / 73; Pulse 83; Resp 16 S; Temp 98.4(O); Pulse Ox 99% on R/A; Weight 61.23 kg bb (R); Height 5 ft. 2 in. (157.48 cm) (R); Pain 8/10; 04:30 Pain 1/10; ke1 06:04 BP 117 / 66; Pulse 70; Resp 17; Temp 98.3; Pulse Ox 98% on R/A; Pain 2/10; ke1 02:42 Body Mass Index 24.69 (61.23 kg, 157.48 cm) bb MDM: 03:10 Patient medically screened. sd2 03:38 Differential diagnosis: contusion, fracture, sprain, strain, among others. Data sd2 reviewed: vital signs, nurses notes, EMS record, radiologic studies. 04:08 I considered the following discharge prescriptions or medication management in the sd2 emergency department Medications were administered in the Emergency Department. See MAR. Independent interpretation of the following test(s) in the Emergency Department X-Ray: My interpretation is no fracture. ED course: . ED course: Pt feeling improved after tx. Closed and NVI. Informed of XR results and need for outpatient follow up. Will provide wound care and place in Velcro splint. Possible puncture wounds by dogs so will place on abx as well as a precaution. Pt comfortable with plan for discharge and outpatient follow up. . 04/30 02:51 Order name: XRAY Wrist LEFT 3 view; Complete Time: 05:32 bb 04/30 04:12 Order name: Splint - Wrist; Complete Time: 05:32 sd2 Administered Medications: 03:36 Drug: HYDROcodone-acetaminophen 5 mg-325 mg 1 tabs Route: PO; ke1 04:30 Follow up: Pain 110 Adult; Response: Pain is decreased ke1 Disposition Summary: 04/30/22 05:58 Discharge Ordered Location: Home sd2 Problem: new sd2 Symptoms: have improved sd2 Condition: Stable sd2 Diagnosis - Pain in left wrist sd2 Followup: sd2 - With: Private Physician - When: 1 week - Reason: Recheck today's complaints, Continuance of care, Re-evaluation by your physician Discharge Instructions: - Discharge Summary Sheet sd2 - Wrist Pain, Adult sd2 Forms: - Medication Reconciliation Form sd2 - Thank You Letter sd2 - Antibiotic Education sd2 - Prescription Opioid Use sd2 Prescriptions: - Augmentin 875-125 mg Oral Tablet - take 1 tablet by ORAL route every 12 hours for 10 days; 20 tablet; Refills: 0, sd2 Product Selection Permitted - Ibuprofen 800 mg Oral Tablet - take 1 tablet by ORAL route every 8 hours As needed take with food; 30 tablet; sd2 Refills: 0, Product Selection Permitted - Tylenol-Codeine #3 300 mg-30 mg Oral - take 1 tablet by ORAL route every 4-6 hours As needed; 5 tablet; Refills: 0, sd2 Product Selection Permitted Signatures: Dispatcher [employer] Kayla Leos RN RN bb Ebrottie, Kouassi, RN RN keLauren Fisher MD MD sd2
[2022-04-30 06:56] VITALS: BP 117/66; TEMP 98.3; O2SAT 98
--- NOTE | 2022-05-02 10:16 | RAD REPORT ---
EXAM DESCRIPTION: RAD - Wrist Left 3 View - 04/30/2022 4:13 am CLINICAL HISTORY: PAIN COMPARISON: None. FINDINGS: 3 views of the right wrist. No acute fracture or dislocation. Normal osseous mineralizatio n. Ventral soft tissue injury with subcutaneous air. IMPRESSION: 1. No acute fracture or dislocation. Ventral soft tissue injury. Electronically signed by: Peter Hidalgo 04/30/2022 5:43 AM RUBBER ATTACHER Due to temporary technical issues with the PACS/Fluency reporting system, reports are being signed by the in house radiologists without review as a courtesy to insure prompt reporting. The interpreting radiologist is fully responsible for the content of the report.
== END 2022-04-30 06:20 | disposition home or self-care (01) ==
LOC: ER 02:01
DX: M25.532 Pain in left wrist (principal); Z88.2 Allergy status to sulfonamides
CPT/HCPCS: 99283

== ENCOUNTER → 2023-06-01 | Emergency (ER) | payer SELFPAY ==
[~2023-06-01] MED LIST: DERMABOND SKIN ADHESIVE TOP ONE; IBUPROFEN 200 MG TAB PO ONE; IBUPROFEN 400 MG TAB ONE
--- OUTSIDE RECORDS SUMMARY | 2023-06-01 15:50 | XMS REPORT | Continuity of Care Document ---
Author Name Unknown Address [address] [facility] [place] [address] [facility] thconnect Address [address] [facility] [place] [address] Care Team Providers Care Hypertrichologist Name Role Phone Cristobal Ward Primary Care Physician [phone] Katarzyna Schneider RN Attending Clinician [phone] Katherine Portillo LVN Attending Clinician [phone] Marcus Rodríguez MD Attending Clinician [phone] Doctor Unassigned, [facility] Attending Clinician U MARCUS Brian Attending Clinician Unavailable Yany Winston MD Attending Clinician [phone] TAMERA HEATH Attending Clinician Unavailab Tamera White DO Attending Clinician [phone] CURRY BOBBY Attending Clinician Unavailable Curry Bobby DO Attending Clinician [phone] SHASHA PARRISH Attending Clinician Unavailable MARCUS RODRÍGUEZ Admitting Clinician Unavailable TAMERA HEATH Admitting Clinician Unavailab tere Payers Payer Name Policy Type Policy Number Effective Date Expirati on Date Source Problems Condition Name Condition Details Condition Category Status Onset Date Resolution Date Last Treatment Date Treating Clinician Comments Source Symptomati c bradycardi a Symptomati c bradycardi a Disease Active 2021-03 00:00: 00 [facility] Supervisio n of high-risk of elderly multigravi da Supervisio n of high-risk of elderly multigravi da Disease Active 2014-03 00:00: 00 [facility] History of delivery, currently History of delivery, currently Disease Active 2014-03 00:00: 00 [facility] Generalize d anxiety disorder Generalize d anxiety disorder Disease Active 10-03 00:00: 00 [facility] Allergies, Adverse Reactions, Alerts Allergy Name Allergy Type Status Severity Reaction(s) Onset Date Inactive Date Treating Clinician Comments Source SULFA (SULFONA MIDE ANTIBIOT ICS) Drug Class Active Hives 10-03 00:00: 00 [facility] Sulfa (Sulfona mide Antibiot ics) Propensi ty to adverse reaction s Active Hives 10-03 00:00: 00 [facility] Sulfa (Sulfona mide Antibiot ics) Propensi ty to adverse reaction s Active Hives 10-03 00:00: 00 [facility] Social History Social Habit Start Date Stop Date Quantity Comments Source Exposure to SARS-CoV-2 (event) 2022-01-30 00:00:00 2022-02-09 15:12:00 Not sure [facility] Tobacco use and exposure 2022-02-09 00:00:00 2022-02-09 00:00:00 Former smokeless tobacco user [facility] Alcohol intake 2022-02-09 00:00:00 2022-02-09 00:00:00 0 /d [facility] Tobacco Comment 2022-02-09 00:00:00 2022-02-09 00:00:00 Quit recently [facility] History of tobacco use 2013-08-03 00:00:00 Cigarette Smoker [facility] Sex Assigned At 1980 00:00:00 1980 00:00:00 [facility] Smoking Status Start Date Stop Date Source Ex-smoker 2022-02-09 00:00:00 2022-02-09 00:00:00 [facility] Medications Ordered Medication Name Filled Medication Name Start Date Stop Date Current Medication? Ordering Clinician Indication Dosage Frequency Signature (SIG) Comments Components Source gadobenate dimeglumine (MULTIHANCE -10 mL) injection 11.4 mL 2021-03 18:30: 00 02-11 18:15 :00 No [id number] .2mL/kg 11.4 mL (0.2 mL/kg ?57 kg), Intravenou s, ONCE, 1 dose, On Mon02/11/22 at 1230, Routine [facility] ALPRAZolam (XANAX) 1 mg tablet 2021-03 16:46: 10 Yes 1mg Take 1 mg by mouth 3 (three) times daily as needed (anxiety). [facility] ALPRAZolam (XANAX) 1 mg tablet 2021-03 16:46: 10 Yes 1mg Take 1 mg by mouth 3 (three) times daily as needed (anxiety). [facility] ALPRAZolam (XANAX) 1 mg tablet 2021-03 16:46: 10 Yes 1mg Take 1 mg by mouth 3 (three) times daily as needed (anxiety). [facility] ALPRAZolam (XANAX) 1 mg tablet 2021-03 16:46: 10 Yes 1mg Take 1 mg by mouth 3 (three) times daily as needed (anxiety). [facility] ALPRAZolam (XANAX) 1 mg tablet 2021-03 16:46: 10 Yes 1mg Take 1 mg by mouth 3 (three) times daily as needed (anxiety). [facility] ALPRAZolam (XANAX) 1 mg tablet 2021-03 16:46: 10 Yes 1mg Take 1 mg by mouth 3 (three) times daily as needed (anxiety). [facility] ALPRAZolam (XANAX) 1 mg tablet 2021-03 16:46: 10 Yes 1mg Take 1 mg by mouth 3 (three) times daily as needed (anxiety). [facility] venlafaxine XR (EFFEXOR XR) 24 hr capsule 75 mg 2021-03 14:00: 00 Yes 75mg 75 mg, Oral, QAM WITH BREAKFAST, First dose (after last modificati on) on Mon02/11/22 at 0800, Until Discontinu ed, Routine [facility] venlafaxine XR 75 mg 24 hr capsule 2021-03 00:00: 00 03-14 05:59 :00 No [id number] 75mg Take 1 capsule by mouth daily with breakfast for 30 days. [facility] venlafaxine XR 75 mg 24 hr capsule 2021-03 00:00: 00 03-14 05:59 :00 No [id number] 75mg Take 1 capsule by mouth daily with breakfast for 30 days. [facility] venlafaxine XR 75 mg 24 hr capsule 2021-03 00:00: 00 03-14 05:59 :00 No [id number] 75mg Take 1 capsule by mouth daily with breakfast for 30 days. [facility] NaCl 0.9% (NS) IV infusion 250 mL 2021-03 20:15: 00 Yes [id number] 250mL at 20 mL/hr, IV Infusion, CONTINUOUS , Starting on Mon02/10/22 at 1415, Until Discontinu ed, Routine
To keep vein open
[facility] perflutren lipid microsphere s (DEFINITY) injection 2 mL 2021-03 20:00: 00 02-10 20:00 :00 No [id number] 2mL 2 mL, IV Push, ONCE, 1 dose, On Mon02/10/22 at 1400, Routine [facility] atropine injection 1 mg 2021-03 20:00: 00 02-10 20:11 :00 No [id number] 1mg 1 mg, Slow IV Push, ONCE, 1 dose, On Mon02/10/22 at 1400, Routine [facility] DOBUTamine (DOBUTREX) 50 mg/50 mL IV infusion 2021-03 19:10: 16 Yes [id number] 5ug/kg/ min 5 mcg/kg/min ?57.5 kg (17.25 mL/hr), IV Infusion, TITRATE, MAP Goal > or = [...] the Dobutamine infusion. (see Adjunctive Therapy)<b r> [facility] KCL (KLOR-CON M20) tablet 20 mEq 2021-03 18:15: 00 02-10 17:41 :00 No 20meq 20 mEq, Oral, ONCE, 1 dose, On Irasema 02/10/22 at 1215, Routine [facility] venlafaxine (EFFEXOR) tablet 75 mg 2021-03 15:00: 00 02-10 19:01 :04 No 75mg 75 mg, Oral, DAILY, First dose on Irasema 02/10/22 at 0900, Until Discontinu ed, Routine [facility] butalbital- acetaminoph en-caff 50-325-40 mg tablet 2021-03 00:00: 00 Yes [id number] 1{tbl} Take 1 tablet by mouth every 4 (four) hours as needed for Other (Migraine) . [facility] butalbital- acetaminoph en-caff 50-325-40 mg tablet 2021-03 00:00: 00 Yes [id number] 1{tbl} Take 1 tablet by mouth every 4 (four) hours as needed for Other (Migraine) . [facility] butalbital- acetaminoph en-caff 50-325-40 mg tablet 2021-03 00:00: 00 Yes [id number] 1{tbl} Take 1 tablet by mouth every 4 (four) hours as needed for Other (Migraine) . [facility] butalbital- acetaminoph en-caff 50-325-40 mg tablet 2021-03 00:00: 00 Yes [id number] 1{tbl} Take 1 tablet by mouth every 4 (four) hours as needed for Other (Migraine) . [facility] butalbital- acetaminoph en-caff 50-325-40 mg tablet 2021-03 00:00: 00 Yes [id number] 1{tbl} Take 1 tablet by mouth every 4 (four) hours as needed for Other (Migraine) . [facility] butalbital- acetaminoph en-caff 50-325-40 mg tablet 2021-03 00:00: 00 Yes [id number] 1{tbl} Take 1 tablet by mouth every 4 (four) hours as needed for Other (Migraine) . [facility] butalbital- acetaminoph en-caff 50-325-40 mg tablet 2021-03 00:00: 00 Yes [id number] 1{tbl} Take 1 tablet by mouth every 4 (four) hours as needed for Other (Migraine) . [facility] butalbital- acetaminoph en-caff (ESGIC) 50-325-40 mg tablet 1 tablet 2021-03 20:50: 03 Yes 1{tbl} 1 tablet, Oral, Q4HPRN, Starting on Mon02/09/22 at 1450, Until Discontinu ed, Routine, Pain (scale 4-6), headache [facility] heparin (porcine) injection 5,000 Units 2021-03 14:00: 00 Yes 5000U 5,000 Units, Subcutaneo us, Q12H, First dose on Mon02/09/22 at 0800, Until Discontinu ed, Routine [facility] ALPRAZolam (XANAX) tablet 1 mg 2021-03 10:51: 31 Yes 1mg 1 mg, Oral, TIDPRN, Starting on Mon02/09/22 at 0451, Until Discontinu ed, Routine, Anxiety [facility] ibuprofen (MOTRIN IB) tablet 400 mg 2021-03 10:46: 22 Yes 400mg 400 mg, Oral, Q6HPRN, Starting on Mon02/09/22 at 0446, Until Discontinu ed, Routine, Alternate with Tylenol for Headace [facility] ondansetron (ZOFRAN (PF)) injection 4 mg 2021-03 10:20: 41 Yes 4mg 4 mg, Slow IV Push, Q6HPRN, Starting on Mon02/09/22 at 0420, Until Discontinu ed, Routine, Nausea and Vomiting (N/V) [facility] acetaminoph en (TYLENOL) tablet 650 mg 2021-03 10:20: 36 02-09 10:56 :32 No 650mg 650 mg, Oral, Q6HPRN, Starting on Mon02/09/22 at 0420, Until Mon02/09/22 at 0456, Routine, Pain (scale 1-3) [facility] ketorolac (TORADOL) injection 30 mg 2021-03 03:45: 00 02-09 03:04 :00 No 30mg 30 mg, Slow IV Push, ONCE, 1 dose, On Mon02/08/22 at 2145, [facility] NaCl 0.9% (NS) bolus infusion 1,000 mL 2021-03 03:30: 00 02-09 04:00 :00 No 1000mL at 999 mL/hr, 1,000 mL, IV Infusion, ONCE, 1 dose, On Mon02/08/22 at 2130, [facility] diphenhydrA MINE (BENADRYL) injection 25 mg 2021-03 03:00: 00 02-09 03:04 :00 No 25mg 25 mg, Slow IV Push, ONCE, 1 dose, On Mon02/08/22 at 2100, STAT [facility] metoclopram shine HCl (REGLAN) injection 10 mg 2021-03 03:00: 00 02-09 03:04 :00 No 10mg 10 mg, Slow IV Push, ONCE, 1 dose, On Mon02/08/22 at 2100, [facility] NaCl 0.9% (NS) bolus infusion 1,000 mL 2021-03 03:00: 00 02-07 05:17 :00 No 1000mL at 999 mL/hr, 1,000 mL, IV Infusion, ONCE, 1 dose, On Mon02/06/22 at 2100, [facility] ketorolac (TORADOL) injection 30 mg 2021-03 02:15: 00 02-07 03:51 :00 No 30mg 30 mg, Slow IV Push, ONCE, 1 dose, On 02/06/22 at 2015, MARTY [facility] multivitami n ( VITAMIN) tablet 2014-03 00:00: 00 Yes [id number] 1{tbl} Take 1 Tab by mouth daily. [facility] multivitami n ( VITAMIN) tablet 2014-03 00:00: 00 Yes [id number] 1{tbl} Take 1 Tab by mouth daily. [facility] multivitami n ( VITAMIN) tablet 2014-03 00:00: 00 Yes [id number] 1{tbl} Take 1 Tab by mouth daily. [facility] multivitami n ( VITAMIN) tablet 2014-03 00:00: 00 02-09 00:00 :00 No [id number] 1{tbl} Take 1 Tab by mouth daily. [facility] Vital Signs Vital Name Observation Time Observation Value Comments S ource Systolic blood pressure 2022-02-11 17:24:00 126 mm[Hg] [facility] Diastolic blood pressure 2022-02-11 17:24:00 76 mm[Hg] [facility] Heart rate 2022-02-11 17:24:00 68 /min [facility] Body temperature 2022-02-11 17:24:00 37.28 Kelsey [facility] Respiratory rate 2022-02-11 17:24:00 18 /min [facility] Oxygen saturation in Arterial blood by Pulse oximetry 2022-02-11 17:24:00 95 /min [facility] Body weight 2022-02-11 10:08:00 57.017 kg [facility] BMI 2022-02-11 10:08:00 22.99 kg/m2 [facility] Body height 2022-02-10 19:27:00 157.5 cm [facility] Systolic blood pressure 2022-02-07 05:00:00 133 mm[Hg] [facility] Diastolic blood pressure 2022-02-07 05:00:00 81 mm[Hg] [facility] Heart rate 2022-02-07 05:00:00 66 /min [facility] Respiratory rate 2022-02-07 05:00:00 13 /min [facility] Oxygen saturation in Arterial blood by Pulse oximetry 2022-02-07 05:00:00 99 /min [facility] Body temperature 2022-02-07 01:54:00 36.83 Kelsey [facility] Body height 2022-02-07 01:54:00 157.5 cm [facility] Body weight 2022-02-07 01:54:00 56.7 kg [facility] BMI 2022-02-07 01:54:00 22.86 kg/m2 [facility] Systolic blood pressure 2021-01-16 00:55:00 128 mm[Hg] [facility] Diastolic blood pressure 2021-01-16 00:55:00 88 mm[Hg] [facility] Heart rate 2021-01-16 00:55:00 86 [facility] 2021-01-16 00:55:00 36.94 Kelsey [facility] Respiratory rate 2021-01-16 00:55:00 18 /min [facility] Body height 2021-01-16 00:55:00 157.5 cm [facility] Body weight 2021-01-16 00:55:00 53.978 kg [facility] BMI 2021-01-16 00:55:00 21.77 kg/m2 [facility] Oxygen saturation in Arterial blood by Pulse oximetry 2021-01-16 00:55:00 99 /min [facility] Procedures Procedure Date / Time Performed Performing Clinician Source EXTERNAL PROVIDER RECORDS 2022-03-01 06:01:00 Do ctor Unassigned, [facility] MR BRAIN W WO CONTRAST 2022-02-11 18:24:00 Brad Manjarrez [facility] COMPLETE ECHOCARDIOGRAM DOBUTAMINE STRESS TEST W CONTRAST 2022-02-10 20:44:31 Татьяна Fonseca [facility] BASIC METABOLIC PANEL (NA, K, CL, CO2, GLUCOSE, BUN, CREATININE, CA) 2022-02-10 14:38:00 Jelly Manjarrez [facility] MAGNESIUM 2022-02-09 10:40:[address] [facility] TROPONIN I 2022-02-09 10:40:[address] [facility] THYROID STIMULATING HORMONE 2022-02-09 10:40:00 Yany Winston [facility] CT HEAD WO CONTRAST 2022-02-09 03:41:00 Jeevan Winston [facility] XR LUMBAR SPINE 2 VW 2022-02-09 03:31:22 Yany Winston [facility] XR SPINE THORACIC 2 VW 2022-02-09 03:31:22 Yany Winston [facility] TEST, SERUM 2022-02-09 02:56:00 Yany Winston [facility] TROPONIN I 2022-02-09 02:56:00 Yany Winston [facility] BASIC METABOLIC PANEL (NA, K, CL, CO2, GLUCOSE, BUN, CREATININE, CA) 2022-02-09 02:56:00 Yany Winston [facility] CBC WITH DIFF 2022-02-09 02:56:00 Yany Winston U [facility] CONSENT/REFUSAL FOR DIAGNOSIS AND TREATMENT 2022-02-09 01:36:09 Doctor Unassigned, [facility] TROPONIN I 2022-02-07 03:49:00 Tamera Heath [facility] COMP. METABOLIC PANEL ([id number]) 2022-02-07 03:49:00 Tamera Heath [facility] CBC WITH DIFF 2022-02-07 03:49:00 Tamera Heath [facility] XR CHEST 1 VW 2022-02-07 03:38:39 Tamera Heath [facility] NOTICE OF PRIVACY PRACTICES 2022-02-07 01:42:03 Doctor Unassigned, [facility] CONSENT/REFUSAL FOR DIAGNOSIS AND TREATMENT 2022-02-07 01:40:46 Doctor Unassigned, [facility] CONSENT/REFUSAL FOR DIAGNOSIS AND TREATMENT 2021-01-16 00:48:25 Doctor Unassigned, [facility] NOTICE OF PRIVACY PRACTICES 2021-01-16 00:47:51 Doctor Unassigned, [facility] Encounters Start Date/Time End Date/Time Encounter Type Admission Type Attending [facility] Facility Care Department Encounter ID Source 2022-08-16 08:15:47 2022-08-16 08:15:47 Outpatient [facility] [id number] Ryan Hyde 2022-05-02 00:00:00 2022-05-02 00:00:00 Patient Outreach Katarzyna Schneider TAMMY SPANGLER [id number] 350.1.13.10 4.2.7.2.686 [id number] [facility] 2022-04-22 00:00:00 2022-04-22 00:00:00 Patient Outreach Katarzyna SchneiderLore SPANGLER [id number] 350.1.13.10 4.2.7.2.686 [id number] [facility] 2022-04-06 00:00:00 2022-04-06 00:00:00 Transition of Care Katherine Portillo [id number] 350.1.13.10 4.2.7.2.686 [id number] [facility] 2022-04-05 00:00:00 2022-04-05 00:00:00 Telephone Marcus Rodríguez [facility] [id number] 350.1.13.10 4.2.7.2.686 [id number] [facility] 2022-03-01 00:00:00 2022-03-01 00:00:00 Orders Only Doctor Unassigned, [facility] [id number] 350.1.13.10 4.2.7.2.686 [id number] [facility] 2022-02-19 00:00:00 2022-02-19 00:00:00 Telephone Marcus Rodríguez [facility] [id number] 350.1.13.10 4.2.7.2.686 [id number] [facility] 2022-02-08 19:37:00 2022-02-11 16:45:00 Outpatient X MARCUS RODRÍGUEZ [facility] [id number] [facility] 2022-02-08 19:37:00 2022-02-11 16:45:00 Emergency Yany Winston [facility] 1.0.114 350.1.13.10 4.2.7.2.686 [id number] [facility] 2022-02-06 19:57:00 2022-02-06 23:19:00 Emergency TAMERA RAMIREZ [facility] ERT [id number] [facility] 2022-02-06 19:57:00 2022-02-06 23:19:00 Emergency Tamera Heath [facility] 1.0.114 350.1.13.10 4.2.7.2.686 [id number] [facility] 2021-01-15 19:59:00 2021-01-15 20:38:00 Emergency CURRY PADRON [facility] ERT [id number] [facility] 2021-01-15 19:59:00 2021-01-15 20:38:00 Emergency Curry Bobby [facility] 1.840.114 350.1.13.10 4.2.7.2.686 [id number] [facility] 2021-01-15 00:00:00 2021-01-15 00:00:00 Orders Only Doctor Unassigned, [facility] [id number] 350.1.13.10 4.2.7.2.686 [id number] [facility] 2020-01-30 18:20:00 2020-01-30 18:20:00 Outpatient Abiel PARRISH [facility] [id number] [facility] Results Test Description Test Time Test Comments Results Result Co mments Source HEPATITIS PANEL, [id number] 06:58:28* Test Item Value Reference Range Interpretation Comme [facility] HEPATITIS A IgM (test code = 35137) NON-REACTIVE NON-REACTIVE HEPATITIS B CORE IgM (test code = 4644) NON-REACTIVE NON-REACTIVE HEPATITIS B SURF AG (test code = 2739) NON-REACTIVE NON-REACTIVE HEPATITIS C ANTIBODY (test code = 4675) NON-REACTIVE NON-REACTIVE INTERPRETATION HEPATITIS A: (test code = 2552) (NOTE) Hepatitis A serology shows no evidence of acute hepatitis A. INTERPRETATION HEPATITIS B: (test code = 68416) (NOTE) Hepatitis B serology shows no evidence of acute hepatitis B andno indication of exposure to hepatitis B virus in the previous kiya eight months. INTERPRETATION HEPATITIS C: (test code = 82583) (NOTE) Hepatitis C serology shows no evidence of exposure to hepatitisC virus at this time. It can take up to 12 months after exposure tothe hepatitis C virus for antibodies to become detectable in the blood in certain patients. HIV 1/2 4TH GEN, RFLX [id number] 06:58:28* Test Item Value Reference Range Interpretation Comme [facility] HIV 1/2 4TH GEN, RFLX CONF (test code = 3514) NON-REACTIVE NON-REACTIVE UNLESS OTHERWISE INDICATED, ALL TESTING PERFORMED AT [facility] [address] [place] [address] [employer] TRIM[employer] HELPER: BACILIO LUCERO M.D. CLIA NUMBER [id number] [place]. [id number] TSH, THIRD [id number] 06:47:32* Test Item Value Reference Range Interpretation Comme [facility] TSH, THIRD GENERATION (test code = 2821) 1.050 UIU/ML 0.400-4.100 COMPREHENSIVE METABOLIC [id number] 05:14:10* Test Item Value Reference Range Interpretation Comme nts GLUCOSE (test code = 2216) 91 MG/DL 70-99 BUN (test code = 2207) 15 MG/DL 6-20 CREATININE (test code = 2213) 0.87 MG/DL 0.60-1.30 eGFR (2020 CKD-EPI) (test code = 49889) 85 ML/MIN/1.73 >60 CALC BUN/CREAT (test code = 2234) 17 RATIO 6-28 SODIUM (test code = 2230) 141 MEQ/L 133-146 POTASSIUM (test code = 2227) 4.3 MEQ/L 3.5-5.4 CHLORIDE (test code = 2214) 106 MEQ/L 95-107 CARBON DIOXIDE (test code = 2205) 26 MEQ/L 19-31 CALCIUM (test code = 2208) 9.7 MG/DL 8.5-10.5 PROTEIN, TOTAL (test code = 2228) 6.6 G/DL 6.1-8.3 ALBUMIN (test code = 2200) 4.4 G/DL 3.5-5.2 CALC GLOBULIN (test code = 0) 2.2 G/DL 1.9-3.7 CALC A/G RATIO (test code = 2233) 2.0 RATIO 1.0-2.6 BILIRUBIN, TOTAL (test code = 2206) <0.2 MG/DL See_Comment [Automated me ssage] The system which generated this result transmitted reference range: <=1.2. The reference range was not used to interpret this result as normal/abnormal. ALKALINE PHOSPHATASE (test code = 2203) 52 U/L 40-113 AST (test code = 2217) 22 U/L 9-40 ALT (test code = 9) 17 U/L 5-40 Echocardiogram dobutamine stress [id number] 23:32:51* Test Item Value Reference Range Interpretation Comme nts Height (test code = 6049917391) in Weight (test code = 5372335378) lbs Systolic BP (test code = 2246842850) mmHg Diastolic BP (test code = 5505900801) mmHg Heart Rate (test code = 9546667521) bpm IVS (test code = 0836418637) 0.64 cm Interventricular Septum Diastolic Thickness by 2D (test code = 7997511) 0.64 cm LVIDD (test code = 7793083150) 4.70 cm Left Ventricular End Diastolic Volume by Teichholz Method (test code = 6211451) 104.8 mL LVPWD (test code = 0619405327) 0.77 cm PW (test code = 6620249133) 0.77 cm 0.6-1.1 EF(Teich) (test code = 5276685046) 67.50 % LVIDS (test code = 6405298241) 3.00 cm Left Ventricular End Systolic Volume by Teichholz Method (test code = 6949888) 34.1 mL FS (test code = 7324497965) 38 % EF - 2D (test code = 26595799) 67.50 % LVOT diameter (test code = 2346672115) 1.74 cm LVOT area (test code = 2980340743) 2.39 cm2 BSA (test code = 8321432972) 1.57 m2 LAV(MOD-sp4) (test code = 6035958328) 35.70 mL MV Peak E Ras (test code = 4904697711) 111.6 cm/s MV Peak A Ras (test code = 0380616441) 56.8 cm/s E/A ratio (test code = 9895934011) ratio E wave decelartion time (test code = 5164490891) 0.26 s LVOT peak ras (test code = 7272863114) 153.6 cm/s AV LVOT peak gradient (test code = 3044822984) mmHg LVOT stroke volume (test code = 2945849465) 80.70 cm3 LVOT mn grad (test code = 2099189419) mmHg LVOT peak VTI (test code = 8854841438) 33.8 cm LV V1 mean (test code = 7651321643) 90.60 cm/s Ao peak ras (test code = 5715447699) 152.0 cm/s AV area peak ras (test code = 4116928142) 2.4 cm2 Ao max PG (test code = 2659771757) 9.20 mm[Hg] AV peak gradient (test code = 4128802911) mmHg LA Volume Index (BP) (test code = 3735577030) 26.9 mL/m2 LA volume (BP) (test code = 9114253074) 42.2 mL LAV(MOD-sp2) (test code = 7689047840) 51.[address] Depresion (mm) (test code = 6788717220) 0 mm Radiology Study observation (narrative) (test code = 54519-0) ENRIQUE (test code = ENRIQUE) Table formatting f rom the original result was not included. ?Stress?ECG: Sinus tachycardia. ?[address] depression in II, III, aVF and V3-V6 There were no arrhythmias during stress. There were no arrhythmias during recovery. ?Post-stress?Impression : Adequate hemodynamic response, adequate inotropic response, adequate [...] mL of Definity ultrasound enhancing agent used. Chanelle RNResting ECGNormal sinus rhythm. Resting ECG shows no [...] ventricular wall motion is normal. [facility] [id number] 04:32:51* Test Item Value Reference Range Interpretation Comments TROPONIN I (test code = 3556976745) 0.001 ng/mL See_Comment [Automated message] The system which generated this result transmitted reference range: <=0.034. The reference range was not used to interpret this result as normal/abnormal. ENRIQUE (test code = ENRIQUE) Reference (Normal) Range (defined by the 99th percentile reference [...] to patient's use of biotin. Lab Interpretation (test code = 81056-3) Normal [facility]. METABOLIC PANEL (28125)2022-02-07 04:21:09* Test Item Value Reference Range Interpretation Comme nts NA (test code = 2316744088) 138 mmol/L 135-145 K (test code = 0694956925) 4.3 mmol/L 3.5-5.0 CL (test code = 8117695393) 104 mmol/L 98-108 CO2 TOTAL (test code = 9692134466) 28 mmol/L 23-31 AGAP (test code = 8356170433) 2-16 BUN (test code = 2626425993) 12 mg/dL 7-23 GLUCOSE (test code = 9958630967) 95 mg/dL 70-110 CREATININE (test code = 8982959210) 0.88 mg/dL 0.50-1.04 TOTAL BILI (test code = 7529857175) 0.4 mg/dL 0.1-1.1 CALCIUM (test code = 5794112228) 8.9 mg/dL 8.6-10.6 T PROTEIN (test code = 3059383061) 7.2 g/dL 6.3-8.2 ALBUMIN (test code = 0048598305) 4.6 g/dL 3.5-5.0 ALK PHOS (test code = 1039953698) 58 U/L 34-122 ALTv (test code = 1742-6) 18 U/L 5-35 AST(SGOT) (test code = 5297855749) 25 U/L 13-40 eGFR (test code = 1447795663) mL/min/1.73m2 ENRIQUE (test code = ENRIQUE) Association of [...] or urine or abnormalities in imaging tests). [facility] WITH [id number] 04:10:30* Test Item Value Reference Range Interpretation Comme nts WBC (test code = 6690-2) See_Comment [[employer]] The system which generated this result transmitted reference range: 4.30 - 11.10 10*3/?L. The reference range was not used to interpret this result as normal/abnormal. RBC (test code = 789-8) See_Comment [[employer]] The system which generated this result transmitted reference range: 3.93 - 5.25 10*6/?L. The reference range was not used to interpret this result as normal/abnormal. HGB (test code = 718-7) 12.4 g/dL 11.6-15.0 HCT (test code = 4544-3) 38.2 % 35.7-45.2 MCV (test code = 787-2) 90.7 fL 80.6-95.5 MCH (test code = 785-6) 29.5 pg 25.9-32.8 MCHC (test code = 786-4) 32.5 g/dL 31.6-35.1 RDW-SD (test code = 93457-5) 42.0 fL 39.0-49.9 RDW-CV (test code = 788-0) 12.7 % 12.0-15.5 PLT (test code = 777-3) See_Comment [[employer]] The system which generated this result transmitted reference range: 166 - 358 10*3/?L. The reference range was not used to interpret this result as normal/abnormal. MPV (test code = 76308-8) 9.7 fL 9.5-12.9 NRBC/100 WBC (test code = 3604491300) See_Comment [Automated [employer]] The system which generated this result transmitted reference range: 0.0 - 10.0 /100 WBCs. The reference range was not used to interpret this result as normal/abnormal. NRBC x10^3 (test code = 4486136287) See_Comment [[employer]] The system which generated this result transmitted reference range: 10*3/?L. The reference range was not used to interpret this result as normal/abnormal. GRAN MAT (NEUT) % (test code = 770-8) 66.4 % IMM GRAN % (test code = 5763857653) 0.30 % LYMPH % (test code = 736-9) 23.2 % MONO % (test code = 5905-5) 6.3 % EOS % (test code = 713-8) 3.0 % BASO % (test code = 706-2) 0.8 % GRAN MAT x10^3(ANC) (test code = 3419498194) 6.49 10*3/uL 1.88-7.09 IMM GRAN x10^3 (test code = 7738957264) 0.03 10*3/uL 0.00-0.06 LYMPH x10^3 (test code = 731-0) 2.26 10*3/uL 1.32-3.29 MONO x10^3 (test code = 742-7) 0.61 10*3/uL 0.33-0.92 EOS x10^3 (test code = 711-2) 0.29 10*3/uL 0.03-0.39 BASO x10^3 (test code = 704-7) 0.08 10*3/uL 0.01-0.07 H Lab Interpretation (test code = 82645-2) Abnormal [facility]"
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
--- NOTE | 2023-06-01 17:26 | RAD REPORT ---
EXAM DESCRIPTION: RAD - Foot Left 3 View - 06/01/2023 5:06 pm CLINICAL HISTORY: Left Foot pain FINDINGS: No fracture or dislocation is seen.
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
[2023-06-01 18:38] VITALS: BP 116/90; TEMP 98; O2SAT 98
== END ==
LOC: ER 15:45
PROC: 0HQGXZZ Repair Left Hand Skin, External Approach (ICD-10-PCS; principal; 2023-06-01)
DX: S02.2XXA Fracture of nasal bones, initial encounter for closed fracture (principal); S61.012A Laceration without foreign body of left thumb without damage to nail, initial encounter; S90.32XA Contusion of left foot, initial encounter
CPT/HCPCS: 70486; 76377; 99283